=== PATIENT | male | born 1965 | race Caucasian/White ===

== ENCOUNTER 2017-01-02 16:29 | Inpatient (IN) | payer BC, MEDICARE ==
[~2017-01-02] VITALS: Ht 175.3 cm; Wt 90.5 kg
[~2017-01-02 16:29] MED LIST: HYDR-971 PO
--- NOTE | 2017-01-02 17:09 | PHYS DOC ---
Past History Past Medical History: Arthritis, Diabetes, Fibromyalgia, Hypertension Past Surgical History: Tonsillectomy Alcohol Use: Occasionally Drug Use: None Adult General Chief Complaint Chief Complaint: ALTERED MENTAL STATUS [facility] HPI Andrae is a 51-year-old male with a history of urinary tract infections and altered mental status. Yesterday he was very confused all day according to his family. Today he has sweats and chills Review of Systems Review of Systems Constitutional: Denies fever or chills [] Eyes: Denies change in visual acuity, redness, or eye pain [] HENT: Denies nasal congestion or sore throat [] Respiratory: Denies cough or shortness of breath [] Cardiovascular: No additional information not addressed in HPI [] GI: Denies abdominal pain, nausea, vomiting, bloody stools or diarrhea [] : Denies dysuria or hematuria [] Musculoskeletal: Denies back pain or joint pain [] Integument: Denies rash or skin lesions [] Neurologic: Denies headache, focal weakness or sensory changes [] Endocrine: Denies polyuria or polydipsia [] Allergies Allergies Allergies Coded Allergies Type Severity Reaction Last Updated Verified Iodine and Iodide Containing Produc Allergy Intermediate rash 08/24/16 Yes povidone-iodine Allergy Intermediate rash 08/24/16 Yes soap Allergy Intermediate rash 08/24/16 Yes Physical Exam Physical Exam Constitutional: Well developed, well nourished, no acute distress, non-toxic appearance. [] HENT: Normocephalic, atraumatic, bilateral external ears normal, oropharynx moist, no oral exudates, nose normal. [] Eyes: PERRLA, EOMI, conjunctiva normal, no discharge. [] Neck: Normal range of motion, no tenderness, supple, no stridor. [] Cardiovascular:Heart rate regular rhythm, no murmur [] Lungs & Thorax: Bilateral breath sounds clear to auscultation [] Abdomen: Bowel sounds normal, soft, no tenderness, no masses, no pulsatile masses. [] Skin: Warm, dry, no erythema, no rash. [] Back: No tenderness, no CVA tenderness. [] Extremities: No tenderness, no cyanosis, no clubbing, ROM intact, no edema. [] Neurologic: Alert and oriented X 3, normal motor function, normal sensory function, no focal deficits noted. [] Psychologic: Affect normal, judgement normal, mood normal. [] Current Patient Data Vital Signs Vital Signs Date Time Temp Pulse Resp B/P (MAP) Pulse Ox O2 Delivery O2 Flow Rate FiO2 01/02/17 17:40 83 20 96/51 (66) 98 Room Air 01/02/17 16:50 98.1 EKG EKG ECG - sinus tachycardia Radiology/Procedures Radiology/Procedures CT Head: negative per radiology Course & Med Decision Making Course & Med Decision Making Laboratory Tests Test 01/02/17 16:46 01/02/17 16:50 Glucose (Fingerstick) 512 mg/dL White Blood Count 5.6 x10^3/uL Red Blood Count 3.78 x10^6/uL Hemoglobin 12.1 g/dL Hematocrit 36.1 % Mean Corpuscular Volume 96 fL Mean Corpuscular Hemoglobin 32 pg Mean Corpuscular Hemoglobin Concent 34 g/dL Red Cell Distribution Width 15.6 % Platelet Count 100 x10^3/uL Neutrophils (%) (Auto) 69 % Lymphocytes (%) (Auto) 19 % Monocytes (%) (Auto) 10 % Eosinophils (%) (Auto) 2 % Basophils (%) (Auto) 0 % Neutrophils # (Auto) 3.9 x10^3uL Lymphocytes # (Auto) 1.1 x10^3/uL Monocytes # (Auto) 0.6 x10^3/uL Eosinophils # (Auto) 0.1 x10^3/uL Basophils # (Auto) 0.0 x10^3/uL Sodium Level 131 mmol/L Potassium Level 3.2 mmol/L Chloride Level 94 mmol/L Carbon Dioxide Level 28 mmol/L Anion Gap 9 Blood Urea Nitrogen 28 mg/dL Creatinine 2.4 mg/dL Estimated GFR (Cockcroft-Gault) 28.5 Glucose Level 475 mg/dL Calcium Level 9.7 mg/dL Current Medications Medications (Trade) Dose Ordered Sig/Carlos Eduardo Route PRN Reason Start Time Stop Time Status Last Admin Dose Admin Sodium Chloride 1,000 ml @ As Directed STK-MED ONCE .ROUTE 01/02/17 17:43 01/02/17 17:44 DC Sodium Chloride (Normal Saline Flush) 1,000 ml 1X STAT IV 01/02/17 17:47 01/02/17 17:57 DC 01/02/17 17:30 Sodium Chloride (Iv Sodium Chloride 0.9% 1,000ml) 1,000 ml 1X STAT IV 01/02/17 17:57 01/02/17 17:58 DC Khai Disclaimer Dragon Disclaimer This chart was dictated in whole or in part using Voice Recognition software in a busy, high-work load, and often noisy Emergency Department environment. It may contain unintended and wholly unrecognized errors or omissions. Departure Departure: Impression: Primary Impression: Altered mental state Additional Impressions: Acute kidney failure Hyperglycemia Hyperglycemia due to type 2 diabetes mellitus Disposition: ADMITTED INPATIENT Condition: STABLE Referrals: JOSEF ROJAS MD (PCP) Problem Qualifiers Primary Impression: Altered mental state Altered mental status type: unspecified Qualified Codes: R41.82 - Altered mental status, unspecified Additional Impressions: Acute kidney failure Acute renal failure type: unspecified Qualified Codes: N17.9 - Acute kidney failure, unspecified Hyperglycemia due to type 2 diabetes mellitus Diabetes mellitus nursing home insulin use: with nursing home use Qualified Codes: E11.65 - Type 2 diabetes mellitus with hyperglycemia; Z79.4 - care home ( current) use of insulin SCAR ODELL MD Jan 02, 2017 17:09
--- NOTE | 2017-01-02 17:14 | EKG ---
[address] [address] Test Date: 2017-01-02 Test Time: 16:48:54 Pat Name: VIKASH HUNTER Department: Room: Gender: M Discharge Coordinator: : 1965 Requested By: SCAR ODELL Order Number: [id number] Reading MD: Measurements Intervals [place] Rate: 89 P: 24 NC: 178 QRS: -8 QRSD: 86 T: 11 QT: 422 QTc: 515 Interpretive Statements SINUS RHYTHM LEFTWARD AXIS R-S TRANSITION ZONE IN V LEADS DISPLACED TO THE LEFT LOW LIMB LEAD VOLTAGE PROLONGED QT RI6.01 Unconfirmed report No previous ECG available for comparison
[2017-01-02 17:19] LABS: BASO % 0 % (0-3); EOS # 0.1 x10^3/uL (0.0-0.7); EOS % 2 % (0-3); HEMATOCRIT 36.1 % (39.0-53.0); HEMOGLOBIN 12.1 g/dL (13.0-17.5); LYMPH # 1.1 x10^3/uL (1.0-4.8); LYMPH % 19 % (24-48); MEAN CORPUSCULAR HEMOGLOBIN 32 pg (25-35); MEAN CORPUSCULAR HGB CONC 34 g/dL (31-37); MEAN CORPUSCULAR VOLUME 96 fL (79-100); MONO # 0.6 x10^3/uL (0.0-1.1); MONO % 10 % (0-9); NEUT # 3.9 x10^3uL (1.8-7.7); NEUT % 69 % (31-73); PLATELET COUNT 100 x10^3/uL (140-400); RED BLOOD COUNT 3.78 x10^6/uL (4.30-5.70); RED CELL DISTRIBUTION WIDTH 15.6 % (11.5-14.5); WHITE BLOOD COUNT 5.6 x10^3/uL (4.0-11.0)
[2017-01-02 17:21] LABS: CALCIUM 9.7 mg/dL (8.5-10.1); CREATININE 2.4 mg/dL (0.7-1.3); GFR 28.5; POTASSIUM 3.2 mmol/L (3.5-5.1)
--- NOTE | 2017-01-02 17:39 | RAD ---
CT Head W/O Contrast: History: Pt has fallen several times within the last few days dementia.unkempt,pt has dollar sized round bruise at top back of head Prior imaging of head from08/2016 sent for comparison. Could not separate head images from [facility] to send [id number] Comparison: August 24, 2016 Axial images were obtained without contrast. The briscoe and white matter appears normal and symmetrical for the patients age. There is no mass effect, extraaxial fluid collections or hydrocephalus. There is no gross bleed. There is no focal loss of briscoe-white matter distinction to suggest acute ischemia, i.e. stroke. Impression: No acute findings. PQRS Compliance Statement: One or more of the following individualized dose reduction techniques were utilized for this examination: 1. Automated exposure control 2. Adjustment of the mA and/or kV according to patient size 3. Use of iterative reconstruction technique Electronically signed by: Jeffrey Cardenas III, MD (01/02/2017 5:36 PM) [facility]
[2017-01-02] MEDS ORDERED: IV NORMAL SALINE 1,000ML 1,000 ML ONE (17:43)
[2017-01-02] MEDS ORDERED: 0.9 % SODIUM CHLORIDE 10 ML DISP.SYRIN. IV STA (17:47)
[2017-01-02] MEDS ORDERED: IV NORMAL SALINE 1,000 ML BAG IV STA (17:57)
[2017-01-02 18:10] LABS: BARBITURATES NEG (NEG); BENZODIAZEPINES NEG (NEG); CANNABINOIDS NEG (NEG); COCAINE NEG (NEG); METHADONE NEG (NEG); OPIATES NEG (NEG); PHENCYCLIDINE NEG (NEG)
[2017-01-02 18:11] LABS: AMPHETAMINE/METHAMPHETAMINE NEG (NEG)
[2017-01-02] MEDS ORDERED: ACETAMINOPHEN 325 MG TABLET PO PRN (18:15)
[2017-01-02 18:30] LABS: BILIRUBIN,URINE NEG (NEG); CLARITY,URINE CLOUDY; COLOR,URINE YELLOW; GLUCOSE,URINE >=1000 mg/dL (NEG); NITRITE,URINE NEG (NEG); UROBILINOGEN,URINE 1 mg/dL (0.2 mg/dL)
[2017-01-02] MEDS ORDERED: INSULIN ASPART 300 UNITS/3 ML INSULN.PEN SQ ONE (18:30)
[2017-01-02 18:31] LABS: BACTERIA,URINE FEW /HPF (0-FEW); HYALINE CASTS, URINE MANY /HPF; SQUAMOUS EPITHELIAL CELL,UR MANY /LPF
[2017-01-02] MEDS ORDERED: POTASSIUM CHLORIDE 20 MEQ TABLET.ER. PO ONE (18:45)
[2017-01-02 20:23] VITALS: BP 117/70
[2017-01-02 20:25] VITALS: BP 117/70
[2017-01-02] MEDS ORDERED: BACL10TA PO (21:57)
[2017-01-02] MEDS ORDERED: INSU100I17 SQ (21:57)
[2017-01-02] MEDS ORDERED: GRIS500T5 PO (21:57)
[2017-01-02] MEDS ORDERED: METF10002 PO (21:57)
[2017-01-02] MEDS ORDERED: OXYC5TAB PO (21:57)
[2017-01-02] MEDS ORDERED: TRAZ300T2 PO (21:57)
[2017-01-02] MEDS: BACLOFEN 10 MG TABLET PO SCH (22:24)
[2017-01-02] MEDS: oxyCODONE IR 5 MG TABLET PO PRN (22:25)
[2017-01-02] MEDS: traZODone 150 MG TABLET. PO SCH (22:25)
[2017-01-02] MEDS: IV NORMAL SALINE 1,000ML 1,000 ML IV SCH (22:26)
[2017-01-02 23:20] VITALS: BP 117/65
[2017-01-03] MEDS ORDERED: GABA300C8 PO (01:18)
[2017-01-03] MEDS ORDERED: LISI40TA PO (01:20)
[2017-01-03] MEDS ORDERED: AMIT150T PO (01:20)
[2017-01-03] MEDS ORDERED: ESCITALOPRAM OX20 MG PO (01:20)
[2017-01-03] MEDS ORDERED: CARV6.252 PO (01:20)
[2017-01-03] MEDS ORDERED: DEXTROSE 50% 25 GM / 50ML DISP.SYRIN. IV PRN (01:30)
--- NOTE | 2017-01-03 02:40 | ACF ---
Admission Criteria Forms MENTAL STATUS CHANGE Clinical Indications for Inpatient Care (Place 'X' for any and all applicable criteria): Ongoing inpatient care may be needed for 1 or more of the following(1)(2)(3)(5)( 6): [X]I. Suspected serious etiology (eg, medical disorder, BENCH ASSEMBLY INSPECTOR event) of altered mental status [ ]II. Danger to self or others not manageable at lower level of care [ ]III. Grave disability (eg, inability to perform self care necessary at lower level of care) [ ]IV. Agitation or inappropriate behavior interfering with care for primary condition (eg, attempting to discontinue lines or drains prematurely, unable to cooperate with respiratory care) [ ]V. Delirium [A] [D][E] as described by 1 or more of the following(26): [ ]a) Delirium due to alcohol or sedative [F] withdrawal [ ]b) Delirium of uncertain etiology that has not responded to appropriate empiric treatment [ ]c) Delirium that prevents performance of a life-sustaining function (eg, feeding or hydrating oneself) [ ]. General contraindications and/or Inappropriate clinical situations for Observational Care in patients with Mental Status Change, when ANY ONE of the following is required: [ ]a) Prediction of prolongation of LOS based on ANY ONE of the following may be considered as a contraindication for observational care 2, 3, 4, 5, 6, 7, 8, 9, 10, 11 [ ]i) Age > 65 yrs. [ ]ii) Patient arriving by ambulance [ ]iii) Patient with high acuity [ ]iv) Patient requiring vital sign monitoring [ ]v) Patient on IV medication [ ]b) Systolic blood pressures greater than or equal to 180mmHg 3, 12 [ ]c) Patient with altered mental status including delirium and other alteration of consciousness, (3) [ ]d) Patient whose discharge disposition will be to a penitentiary home or rehabilitation home should not be managed in Emergency Department Observation Unit. CMS rule requires 3 days hospital stay before such placement.3,13 [ ]e) Patient with failure to thrive due to broad array of etiologies 3,16,17 [ ]f) Inability to ambulate 3,14 Extended stay beyond goal length of stay for the primary condition may be needed until ALL of the following are present(3)(5): [ ]a) Underlying medical etiology of mental status change is absent, or has been established and adequately treated [ ]b) Danger to self or others is absent or manageable at lower level of care. [ ]c) Behavior crisis management, including physical or chemical restraints, is not required or available at lower level of car [ ]d) Substance or alcohol withdrawal is absent or manageable at lower level of care. [ ]e) Behavioral symptoms (eg, agitation, somnolence, inappropriate behavior) are absent, or are manageable at lower level of care. The original [facility] [employer] content created by [facility] has been revised. The portions of the content which have been revised are identified through the use of italic text or in bold, and [facility] has neither reviewed nor approved the modified material. All other unmodified content is copyright [facility]. Please see references footnoted in the original [facility] edition 2016 Admission Criteria Met?: Yes GABRIEL SIDDIQI Jan 03, 2017 02:40
[2017-01-03] MEDS: IV NORMAL SALINE 1,000ML 1,000 ML IV SCH ×2 (04:41→17:22)
[2017-01-03 05:22] VITALS: BP 148/55
[2017-01-03 07:00] LABS: BASO % 0 % (0-3); EOS # 0.1 x10^3/uL (0.0-0.7); EOS % 3 % (0-3); HEMATOCRIT 37.8 % (39.0-53.0); HEMOGLOBIN 12.5 g/dL (13.0-17.5); LYMPH % 27 % (24-48); MEAN CORPUSCULAR HEMOGLOBIN 32 pg (25-35); MEAN CORPUSCULAR HGB CONC 33 g/dL (31-37); MEAN CORPUSCULAR VOLUME 97 fL (79-100); MONO # 0.3 x10^3/uL (0.0-1.1); MONO % 9 % (0-9); NEUT # 2.2 x10^3uL (1.8-7.7); NEUT % 62 % (31-73); PLATELET COUNT 61 x10^3/uL (140-400); RED BLOOD COUNT 3.92 x10^6/uL (4.30-5.70); RED CELL DISTRIBUTION WIDTH 15.5 % (11.5-14.5); WHITE BLOOD COUNT 3.6 x10^3/uL (4.0-11.0)
[2017-01-03 07:06] LABS: CREATININE 1.3 mg/dL (0.7-1.3); GFR 57.7; POTASSIUM 3.9 mmol/L (3.5-5.1)
[2017-01-03] MEDS: oxyCODONE IR 5 MG TABLET PO PRN ×2 (08:14→23:07)
[2017-01-03] MEDS: GABAPENTIN 300 MG CAPSULE. PO SCH ×3 (08:14→21:00)
[2017-01-03] MEDS: CARVEDILOL 6.25 MG TABLET PO SCH ×2 (08:15→17:22)
[2017-01-03] MEDS: metFORMIN 500 MG TABLET PO SCH ×2 (08:15→17:22)
[2017-01-03] MEDS: ESCITALOPRAM 20 MG TABLET. PO SCH (08:15)
[2017-01-03] MEDS: LISINOPRIL 20 MG TABLET PO SCH (08:15)
[2017-01-03] MEDS: INSULIN ASPART 300 UNITS/3 ML INSULN.PEN SQ SCH ×4 (08:19→21:00)
[2017-01-03] MEDS: GRISEOFULVIN MICROSIZE 500 MG PO SCH ×2 (08:20→20:59)
[2017-01-03 11:03] VITALS: BP 106/61
[2017-01-03 14:45] VITALS: BP 101/57
--- NOTE | 2017-01-03 16:30 | PDOC1 ---
History of Present Illness Reason for Visit: Altered mental status, confusion sweatsb and chills History of Present Illness The patient was noted to be more confused all day according to the family He was lost driving to [place] and around [place] His house is very dirty and he has severe self care deficit Chief Complaint: ALTERED MENTAL STATUS Allergies: Coded Allergies: Iodine and Iodide Containing Produc (Verified Allergy, Intermediate, rash , 08/24/16) povidone-iodine (Verified Allergy, Intermediate, rash, 08/24/16) soap (Verified Allergy, Intermediate, rash, 08/24/16) Past Medical History Cardiac: HTN PRODUCTION PLANNER SCHEDULER: Dementia GI: No pertinent hx Musculoskeletal: No pertinent hx Rheumatologic: Fibromyalgia Renal/: Chronic renal insuff, Acute renal failure, UTI, Other (kidney stones) Endocrine: Diabetes Dermatology: Eczema Past Surgical History: No pertinent history Past Social History Smoke: No Alcohol: none Drugs: None Lives: Alone Review of Systems Review Of Systems Fourteen system , review of systems has been reviewed. See HPI for pertinent positives and negative responses, other kilpatrick all other systems are negative, non pertinent or non contributory Neurological: YES: Behavorial Changes Allergies: Coded Allergies: Iodine and Iodide Containing Produc (Verified Allergy, Intermediate, rash , 08/24/16) povidone-iodine (Verified Allergy, Intermediate, rash, 08/24/16) soap (Verified Allergy, Intermediate, rash, 08/24/16) Medications Current Medications Sodium Chloride 1,000 ml @ As Directed STK-MED ONCE .ROUTE ; Start 01/02/17 at 17:43; Stop 01/02/17 at 17:44; Status DC Sodium Chloride (Normal Saline Flush) 1,000 ml 1X STAT IV Last administered on 01/02/17 17:30; Start 01/02/17 at 17:47; Stop 01/02/17 at 17:57; Status DC Sodium Chloride (Iv Sodium Chloride 0.9% 1,000ml) 1,000 ml 1X STAT IV Last administered on 01/02/17 17:57; Start 01/02/17 at 17:57; Stop 01/02/17 at 17:58 ; Status DC Sodium Chloride 1,000 ml @ 100 mls/hr Q10H IV Last administered on 01/03/17 04:41; Start 01/02/17 at 18:15; Stop 01/03/17 at 18:14 Acetaminophen (Tylenol) 650 mg PRN Q4HRS PRN PO FEVER; Start 01/02/17 at 18:15 ; Stop 01/03/17 at 18:14 Insulin Aspart (NovoLOG) 10 units 1X ONCE SQ Last administered on 01/02/17 18 :32; Start 01/02/17 at 18:30; Stop 01/02/17 at 18:31; Status DC Potassium Chloride (Klor-Con) 20 meq 1X ONCE PO Last administered on 18:31; Start 01/02/17 at 18:45; Stop 01/02/17 at 18:46; Status DC Baclofen (Lioresal) 30 mg HS PO Last administered on 01/02/17 22:24; Start at 22:15 Oxycodone HCl (Roxicodone) 15 mg PRN BID PRN PO BACK PAIN Last administered on 01/03/17 08:14; Start 01/02/17 at 22:00 Trazodone HCl (Desyrel) 300 mg HS PO Last administered on 01/02/17 22:25; Start 01/02/17 at 22:15 Carvedilol (Coreg) 6.25 mg BIDWMEALS PO Last administered on 01/03/17 08:15; Start 01/03/17 at 08:00 Gabapentin (Neurontin) 300 mg TID PO Last administered on 01/03/17 12:10; Start 01/03/17 at 09:00 Amitriptyline HCl (Elavil) 150 mg HS PO ; Start 01/03/17 at 21:00 Escitalopram Oxalate (Lexapro) 20 mg DAILY PO Last administered on 01/03/17 08 :15; Start 01/03/17 at 09:00 Non-Formulary Medication 500 mg BID PO ; Start 01/03/17 at 09:00; Status UNV Lisinopril (Prinivil) 40 mg DAILY PO Last administered on 01/03/17 08:15; Start 01/03/17 at 09:00 Metformin HCl (Glucophage) 1,000 mg BIDWMEALS PO Last administered on 08:15; Start 01/03/17 at 08:00 Insulin Aspart (NovoLOG) 0-7 UNITS QIDACHS SQ Last administered on 01/03/17t 12 :11; Start 01/03/17 at 07:30 Dextrose 12.5 gm PRN Q15MIN PRN IV SEE COMMENTS; Start 01/03/17 at 01:30 Active Scripts Active Reported Amitriptyline Hcl 150 Mg Tablet 150 Mg PO HS Carvedilol 6.25 Mg Tablet 6.25 Mg PO BIDWMEALS Lisinopril 40 Mg Tablet 40 Mg PO DAILY Escitalopram Oxalate 20 Mg Tablet 20 Mg PO DAILY Gabapentin 300 Mg Capsule 300 Mg PO TID Griseofulvin (Griseofulvin,Microsize) 500 Mg Tablet 500 Mg PO BID Trazodone Hcl 300 Mg Tablet 300 Mg PO HS Oxycodone Hcl 5 Mg Tablet 15 Mg PO PRN BID PRN Baclofen 10 Mg Tablet 30 Mg PO HS Novolog Flexpen (Insulin Aspart) 100 Unit/1 Ml Insuln.pen 0-7 Unit SQ TIDACHC PRN Metformin Hcl 1,000 Mg Tablet 1,000 Mg PO BIDWMEALS Exam Vital Signs Vital Signs Date Time Temp Pulse Resp B/P (MAP) Pulse Ox O2 Delivery O2 Flow Rate FiO2 01/03/17 14:45 97.5 67 20 101/57 (72) 94 Room Air 01/03/17 11:03 2.0 General Appearance: Alert, No acute distress HEENT: Atraumatic, PERRLA, EOMI Heart: Regular rate, Normal S1, Normal S2, No murmurs, Gallops, Rubs Cardiac: HTN Abdominal: Normal bowel sounds, No tenderness, No masses Extremities: No clubbing, No cyanosis, No edema, Normal pulses Skin: No rashes, No breakdown Neuro: Normal gait, Normal speech, Normal tone Psych/Mental Status: Mental status NL Assessment/Plan Assessment/Plan Altered mental status and impaired cognition A/c kidney injury Type IIDM Self care deficit COURSE Allergies Coded Allergies Type Severity Reaction Last Updated Verified Iodine and Iodide Containing Produc Allergy Intermediate rash 08/24/16 Yes povidone-iodine Allergy Intermediate rash 08/24/16 Yes soap Allergy Intermediate rash 08/24/16 Yes Laboratory Tests Test 01/02/17 16:46 01/02/17 16:50 01/02/17 17:49 01/02/17 20:47 Glucose (Fingerstick) 512 mg/dL (70-99) 275 mg/dL (70-99) White Blood Count 5.6 x10^3/uL (4.0-11.0) Red Blood Count 3.78 x10^6/uL (4.30-5.70) Hemoglobin 12.1 g/dL (13.0-17.5) Hematocrit 36.1 % (39.0-53.0) Mean Corpuscular Volume 96 fL (79-100) Mean Corpuscular Hemoglobin 32 pg (25-35) Mean Corpuscular Hemoglobin Concent 34 g/dL (31-37) Red Cell Distribution Width 15.6 % (11.5-14.5) Platelet Count 100 x10^3/uL (140-400) Neutrophils (%) (Auto) 69 % (31-73) Lymphocytes (%) (Auto) 19 % (24-48) Monocytes (%) (Auto) 10 % (0-9) Eosinophils (%) (Auto) 2 % (0-3) Basophils (%) (Auto) 0 % (0-3) Neutrophils # (Auto) 3.9 x10^3uL (1.8-7.7) Lymphocytes # (Auto) 1.1 x10^3/uL (1.0-4.8) Monocytes # (Auto) 0.6 x10^3/uL (0.0-1.1) Eosinophils # (Auto) 0.1 x10^3/uL (0.0-0.7) Basophils # (Auto) 0.0 x10^3/uL (0.0-0.2) Sodium Level 131 mmol/L (136-145) Potassium Level 3.2 mmol/L (3.5-5.1) Chloride Level 94 mmol/L (98-107) Carbon Dioxide Level 28 mmol/L (21-32) Anion Gap 9 (6-14) Blood Urea Nitrogen 28 mg/dL (8-26) Creatinine 2.4 mg/dL (0.7-1.3) Estimated GFR (Cockcroft-Gault) 28.5 Glucose Level 475 mg/dL (70-99) Calcium Level 9.7 mg/dL (8.5-10.1) Urine Collection Type Unknown Urine Color Yellow Urine Clarity Cloudy Urine pH 5.0 Urine Specific Baker 1.020 Urine Protein Neg (NEG-TRACE) Urine Glucose (UA) >=1000 mg/dL (NEG) Urine Ketones (Stick) Neg mg/dL (NEG) Urine Blood Neg (NEG) Urine Nitrite Neg (NEG) Urine Bilirubin Neg (NEG) Urine Urobilinogen Dipstick 1 mg/dL (0.2 mg/dL) Urine Leukocyte Esterase Neg (NEG) Urine RBC 3-5 /HPF (0-2) Urine WBC 5-10 /HPF (0-4) Urine Squamous Epithelial Cells Many /LPF Urine Bacteria Few /HPF (0-FEW) Urine Hyaline Casts Many /HPF Urine Mucus Marked /LPF Urine Opiates Screen Neg (NEG) Urine Methadone Screen Neg (NEG) Urine Barbiturates Neg (NEG) Urine Phencyclidine Screen Neg (NEG) Urine Amphetamine/Methamphetamine Neg (NEG) Urine Benzodiazepines Screen Neg (NEG) Urine Cocaine Screen Neg (NEG) Urine Cannabinoids Screen Neg (NEG) Urine Ethyl Alcohol Neg (NEG) Test 01/03/17 06:40 01/03/17 07:18 01/03/17 11:11 White Blood Count 3.6 x10^3/uL (4.0-11.0) Red Blood Count 3.92 x10^6/uL (4.30-5.70) Hemoglobin 12.5 g/dL (13.0-17.5) Hematocrit 37.8 % (39.0-53.0) Mean Corpuscular Volume 97 fL (79-100) Mean Corpuscular Hemoglobin 32 pg (25-35) Mean Corpuscular Hemoglobin Concent 33 g/dL (31-37) Red Cell Distribution Width 15.5 % (11.5-14.5) Platelet Count 61 x10^3/uL (140-400) Neutrophils (%) (Auto) 62 % (31-73) Lymphocytes (%) (Auto) 27 % (24-48) Monocytes (%) (Auto) 9 % (0-9) Eosinophils (%) (Auto) 3 % (0-3) Basophils (%) (Auto) 0 % (0-3) Neutrophils # (Auto) 2.2 x10^3uL (1.8-7.7) Lymphocytes # (Auto) 1.0 x10^3/uL (1.0-4.8) Monocytes # (Auto) 0.3 x10^3/uL (0.0-1.1) Eosinophils # (Auto) 0.1 x10^3/uL (0.0-0.7) Basophils # (Auto) 0.0 x10^3/uL (0.0-0.2) Sodium Level 138 mmol/L (136-145) Potassium Level 3.9 mmol/L (3.5-5.1) Chloride Level 100 mmol/L (98-107) Carbon Dioxide Level 31 mmol/L (21-32) Anion Gap 7 (6-14) Blood Urea Nitrogen 23 mg/dL (8-26) Creatinine 1.3 mg/dL (0.7-1.3) Estimated GFR (Cockcroft-Gault) 57.7 Glucose Level 285 mg/dL (70-99) Calcium Level 9.0 mg/dL (8.5-10.1) Glucose (Fingerstick) 239 mg/dL (70-99) 272 mg/dL (70-99) Current Medications Medications (Trade) Dose Ordered Sig/Carlos Eduardo Route PRN Reason Start Time Stop Time Status Last Admin Dose Admin Sodium Chloride 1,000 ml @ As Directed STK-MED ONCE .ROUTE 01/02/17 17:43 01/02/17 17:44 DC Sodium Chloride (Normal Saline Flush) 1,000 ml 1X STAT IV 01/02/17 17:47 01/02/17 17:57 DC 01/02/17 17:30 Sodium Chloride (Iv Sodium Chloride 0.9% 1,000ml) 1,000 ml 1X STAT IV 01/02/17 17:57 01/02/17 17:58 DC 01/02/17 17:57 Sodium Chloride 1,000 ml @ 100 mls/hr Q10H IV 01/02/17 18:15 01/03/17 18:14 01/03/17 04:41 Acetaminophen (Tylenol) 650 mg PRN Q4HRS PRN PO FEVER 01/02/17 18:15 01/03/17 18:14 Insulin Aspart (NovoLOG) 10 units 1X ONCE SQ 01/02/17 18:30 01/02/17 18:31 DC 01/02/17 18:32 Potassium Chloride (Klor-Con) 20 meq 1X ONCE PO 01/02/17 18:45 01/02/17 18:46 DC 01/02/17 18:31 Baclofen (Lioresal) 30 mg HS PO 01/02/17 22:15 01/02/17 22:24 Oxycodone HCl (Roxicodone) 15 mg PRN BID PRN PO BACK PAIN 01/02/17 22:00 01/03/17 08:14 Trazodone HCl (Desyrel) 300 mg HS PO 01/02/17 22:15 01/02/17 22:25 Carvedilol (Coreg) 6.25 mg BIDWMEALS PO 01/03/17 08:00 01/03/17 08:15 Gabapentin (Neurontin) 300 mg TID PO 01/03/17 09:00 01/03/17 12:10 Amitriptyline HCl (Elavil) 150 mg HS PO 01/03/17 21:00 Escitalopram Oxalate (Lexapro) 20 mg DAILY PO 01/03/17 09:00 01/03/17 08:15 Non-Formulary Medication 500 mg BID PO 01/03/17 09:00 UNV Lisinopril (Prinivil) 40 mg DAILY PO 01/03/17 09:00 01/03/17 08:15 Metformin HCl (Glucophage) 1,000 mg BIDWMEALS PO 01/03/17 08:00 01/03/17 08:15 Insulin Aspart (NovoLOG) 0-7 UNITS QIDACHS SQ 01/03/17 07:30 01/03/17 12:11 Dextrose 12.5 gm PRN Q15MIN PRN IV SEE COMMENTS 01/03/17 01:30 I & O 01/03/17 00:00 Intake Total 2900 ml Balance 2900 ml Orders Procedure Category Date Status Time Ct Head Wo Contrast CT 01/02/17 Resulted 17:06 Vital Signs ER 01/02/17 Transmitted 17:07 Bp Monitoring ER 01/02/17 Transmitted 17:07 Temperature Monitoring ER 01/02/17 Transmitted 17:07 Saline Lock ER 01/02/17 Transmitted 17:07 Basic Metabolic Panel LAB 01/02/17 Complete 17:07 Cbc W Autodiff LAB 01/02/17 Complete 17:07 Ua, Cult If Indicated LAB 01/02/17 Complete 17:07 Drugs Of Abuse Ur LAB 01/02/17 Complete 17:07 12 Lead Ekg EKG 01/02/17 Complete 17:07 Mine Technician ER 01/02/17 Verified 17:07 Continuous Pulse ER 01/02/17 Verified Oximetry 17:07 Iv Normal Saline PHA 01/02/17 Complete 1,000ml (Iv Sodium 17:43 0.9 % Sodium Chloride PHA 01/02/17 Complete (Normal Saline Flu 17:47 Iv Normal Saline PHA 01/02/17 Complete 1,000ml (Iv Sodium 17:57 [place] Order ADT 01/02/17 Transmitted 18:15 Code Status CODE 01/02/17 Transmitted 18:15 Vital Signs, Per KIKI 01/02/17 In Process Protocol 18:15 Ambulate Ad Angle KIKI 01/02/17 In Process 18:15 Fall Precautions KIKI 01/02/17 In Process 18:15 Cbc W Autodiff LAB 01/03/17 Complete 06:00 Basic Metabolic Panel LAB 01/03/17 Complete 06:00 Iv Normal Saline PHA 01/02/17 In Process 1,000ml (Iv Sodium 18:15 Acetaminophen PHA 01/02/17 In Process (Tylenol) 18:15 Insulin Aspart PHA 01/02/17 Complete (Novolog) 18:30 Potassium Chloride PHA 01/02/17 Complete (Klor-Con) 18:45 Urine Culture FEDE 01/02/17 In Process 18:32 Admit Orders ADT 01/02/17 Transmitted Oxycodone Ir PHA 01/02/17 In Process (Roxicodone) 22:00 Baclofen (Lioresal) PHA 01/02/17 In Process 22:15 Trazodone (Desyrel) PHA 01/02/17 In Process 22:15 Carvedilol (Coreg) PHA 01/03/17 In Process 08:00 Gabapentin (Neurontin) PHA 01/03/17 In Process 09:00 Amitriptyline Hcl PHA 01/03/17 In Process (Elavil) 21:00 Escitalopram (Lexapro) PHA 01/03/17 In Process 09:00 (NF) PHA 01/03/17 Logged Griseofulvin,Microsize 09:00 Lisinopril (Prinivil) PHA 01/03/17 In Process 09:00 Metformin (Glucophage) PHA 01/03/17 In Process 08:00 Glucose Poct Achs KIKI 01/03/17 In Process 01:28 Insulin Aspart PHA 01/03/17 In Process (Novolog) 07:30 Dextrose 50% PHA 01/03/17 In Process 01:30 Case Management CM1 01/04/17 Transmitted Referral 07:00 High Risk Dc CONS 01/03/17 Transmitted Readmission 01:53 Angolan Diabetic DIET 01/03/17 Transmitted Assoc Diet Breakfast Pt Eval And Treat PT 01/03/17 Complete 06:21 Ot Eval And Treat OT 01/03/17 Complete 06:21 Vital Signs Date Time Temp Pulse Resp B/P (MAP) Pulse Ox O2 Delivery O2 Flow Rate FiO2 01/03/17 14:45 97.5 67 20 101/57 (72) 94 Room Air 01/03/17 11:03 2.0 DEONNA ARCE MD Jan 03, 2017 16:30
--- NOTE | 2017-01-03 16:50 | PDOC ---
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 given his family history of cancer A/C KI History of multiple renal stones Psoriasis Type II DM Fibromyalgia Vital Signs: Vital Signs Date Time Temp Pulse Resp B/P (MAP) Pulse Ox O2 Delivery O2 Flow Rate FiO2 01/03/17 14:45 97.5 67 20 101/57 (72) 94 Room Air 01/03/17 11:03 2.0 I & O Intake and Output 01/03/17 07:00 Intake Total 3749 ml Balance 3749 ml Intake Oral 1050 ml IV Total 2699 ml # Voids 1 # Bowel Movements 1 Labs: Laboratory Tests Test 01/02/17 16:46 01/02/17 16:50 01/02/17 17:49 01/02/17 20:47 Glucose (Fingerstick) 512 mg/dL (70-99) 275 mg/dL (70-99) White Blood Count 5.6 x10^3/uL (4.0-11.0) Red Blood Count 3.78 x10^6/uL (4.30-5.70) Hemoglobin 12.1 g/dL (13.0-17.5) Hematocrit 36.1 % (39.0-53.0) Mean Corpuscular Volume 96 fL (79-100) Mean Corpuscular Hemoglobin 32 pg (25-35) Mean Corpuscular Hemoglobin Concent 34 g/dL (31-37) Red Cell Distribution Width 15.6 % (11.5-14.5) Platelet Count 100 x10^3/uL (140-400) Neutrophils (%) (Auto) 69 % (31-73) Lymphocytes (%) (Auto) 19 % (24-48) Monocytes (%) (Auto) 10 % (0-9) Eosinophils (%) (Auto) 2 % (0-3) Basophils (%) (Auto) 0 % (0-3) Neutrophils # (Auto) 3.9 x10^3uL (1.8-7.7) Lymphocytes # (Auto) 1.1 x10^3/uL (1.0-4.8) Monocytes # (Auto) 0.6 x10^3/uL (0.0-1.1) Eosinophils # (Auto) 0.1 x10^3/uL (0.0-0.7) Basophils # (Auto) 0.0 x10^3/uL (0.0-0.2) Sodium Level 131 mmol/L (136-145) Potassium Level 3.2 mmol/L (3.5-5.1) Chloride Level 94 mmol/L (98-107) Carbon Dioxide Level 28 mmol/L (21-32) Anion Gap 9 (6-14) Blood Urea Nitrogen 28 mg/dL (8-26) Creatinine 2.4 mg/dL (0.7-1.3) Estimated GFR (Cockcroft-Gault) 28.5 Glucose Level 475 mg/dL (70-99) Calcium Level 9.7 mg/dL (8.5-10.1) Urine Collection Type Unknown Urine Color Yellow Urine Clarity Cloudy Urine pH 5.0 Urine Specific [place] 1.020 Urine Protein Neg (NEG-TRACE) Urine Glucose (UA) >=1000 mg/dL (NEG) Urine Ketones (Stick) Neg mg/dL (NEG) Urine Blood Neg (NEG) Urine Nitrite Neg (NEG) Urine Bilirubin Neg (NEG) Urine Urobilinogen Dipstick 1 mg/dL (0.2 mg/dL) Urine Leukocyte Esterase Neg (NEG) Urine RBC 3-5 /HPF (0-2) Urine WBC 5-10 /HPF (0-4) Urine Squamous Epithelial Cells Many /LPF Urine Bacteria Few /HPF (0-FEW) Urine Hyaline Casts Many /HPF Urine Mucus Marked /LPF Urine Opiates Screen Neg (NEG) Urine Methadone Screen Neg (NEG) Urine Barbiturates Neg (NEG) Urine Phencyclidine Screen Neg (NEG) Urine Amphetamine/Methamphetamine Neg (NEG) Urine Benzodiazepines Screen Neg (NEG) Urine Cocaine Screen Neg (NEG) Urine Cannabinoids Screen Neg (NEG) Urine Ethyl Alcohol Neg (NEG) Test 01/03/17 06:40 01/03/17 07:18 01/03/17 11:11 White Blood Count 3.6 x10^3/uL (4.0-11.0) Red Blood Count 3.92 x10^6/uL (4.30-5.70) Hemoglobin 12.5 g/dL (13.0-17.5) Hematocrit 37.8 % (39.0-53.0) Mean Corpuscular Volume 97 fL (79-100) Mean Corpuscular Hemoglobin 32 pg (25-35) Mean Corpuscular Hemoglobin Concent 33 g/dL (31-37) Red Cell Distribution Width 15.5 % (11.5-14.5) Platelet Count 61 x10^3/uL (140-400) Neutrophils (%) (Auto) 62 % (31-73) Lymphocytes (%) (Auto) 27 % (24-48) Monocytes (%) (Auto) 9 % (0-9) Eosinophils (%) (Auto) 3 % (0-3) Basophils (%) (Auto) 0 % (0-3) Neutrophils # (Auto) 2.2 x10^3uL (1.8-7.7) Lymphocytes # (Auto) 1.0 x10^3/uL (1.0-4.8) Monocytes # (Auto) 0.3 x10^3/uL (0.0-1.1) Eosinophils # (Auto) 0.1 x10^3/uL (0.0-0.7) Basophils # (Auto) 0.0 x10^3/uL (0.0-0.2) Sodium Level 138 mmol/L (136-145) Potassium Level 3.9 mmol/L (3.5-5.1) Chloride Level 100 mmol/L (98-107) Carbon Dioxide Level 31 mmol/L (21-32) Anion Gap 7 (6-14) Blood Urea Nitrogen 23 mg/dL (8-26) Creatinine 1.3 mg/dL (0.7-1.3) Estimated GFR (Cockcroft-Gault) 57.7 Glucose Level 285 mg/dL (70-99) Calcium Level 9.0 mg/dL (8.5-10.1) Glucose (Fingerstick) 239 mg/dL (70-99) 272 mg/dL (70-99) Physical Exam: Resting comfortably in his chair in NAD Pale but not jaundiced or cyanosed Vitals are stable ASSESSMENT: Altered mental status with marked cognitive impairment likely due to dementia Poor living conditions and severe self care deficit A/C KI Poorly controlled Type II DM PLAN: Continue with I V Fluids Monitor labs and blood sugar CT Scan of abdomen and pelvis without contrast DEONNA ARCE MD Jan 03, 2017 16:50
[2017-01-03 18:00] VITALS: BP 114/67
--- NOTE | 2017-01-03 18:32 | RAD ---
Abdominal and Pelvis CT, Without Contrast: History: Hematuria and bilateral flank pain. Comparison: None. Procedure: Axial images are obtained of the abdomen and pelvis, without IV or oral contrast. CT Abdomen without Contrast: Findings: Evaluation of solid organs is limited without contrast. Evaluation of stomach and bowel is limited without oral contrast. Liver: Normal. Spleen: Moderately enlarged. Pancreas: Normal. Adrenal Glands: Normal. Kidneys: There is a tiny nonobstructive 3 mm stone in the left renal pelvis. There is no free air or free fluid. There is no lymphadenopathy. Impression: Please see CT Pelvis without Contrast. End Impression. CT Pelvis without Contrast: Findings: The urinary bladder is partially collapsed and not well evaluated. There is apparent moderate wall thickening. There is no free fluid. There is no lymphadenopathy. There is no pericolonic inflammation identified. The appendix is normal. Impression: 1. Moderate splenomegaly. 2. Nonobstructive stone in the left renal pelvis. No evidence of obstructive uropathy. 3. Apparent moderate wall thickening of the urinary bladder could be secondary to nondistention however correlation with urinary analysis is suggested. End impression PQRS Compliance Statement: One or more of the following individualized dose reduction techniques were utilized for this examination: 1. Automated exposure control 2. Adjustment of the mA and/or kV according to patient size 3. Use of iterative reconstruction technique Electronically signed by: Jeffrey Cardenas III, MD (01/03/2017 6:29 PM) [facility]
[2017-01-03] MEDS: traZODone 150 MG TABLET. PO SCH (21:00)
[2017-01-03] MEDS: AMITRIPTYLINE HCL 50 MG TABLET PO SCH (21:00)
[2017-01-03] MEDS: BACLOFEN 10 MG TABLET PO SCH (21:00)
[2017-01-03 23:35] VITALS: BP 144/77
[2017-01-04 05:55] VITALS: BP 129/74
[2017-01-04 06:41] LABS: C REACTIVE PROTEIN 31.9 mg/L (0-3.3); CALCIUM 8.8 mg/dL (8.5-10.1); CREATININE 0.9 mg/dL (0.7-1.3); GFR 88.3; POTASSIUM 3.6 mmol/L (3.5-5.1)
[2017-01-04] MEDS: oxyCODONE IR 5 MG TABLET PO PRN ×2 (08:32→21:11)
[2017-01-04] MEDS: GABAPENTIN 300 MG CAPSULE. PO SCH ×3 (08:32→21:11)
[2017-01-04] MEDS: ESCITALOPRAM 20 MG TABLET. PO SCH (08:32)
[2017-01-04] MEDS: metFORMIN 500 MG TABLET PO SCH ×2 (08:32→16:57)
[2017-01-04] MEDS: LISINOPRIL 20 MG TABLET PO SCH (08:33)
[2017-01-04] MEDS: CARVEDILOL 6.25 MG TABLET PO SCH ×2 (08:33→16:57)
[2017-01-04] MEDS: INSULIN ASPART 300 UNITS/3 ML INSULN.PEN SQ SCH ×4 (08:34→21:14)
[2017-01-04] MEDS: GRISEOFULVIN MICROSIZE 500 MG PO SCH ×2 (08:44→21:11)
[2017-01-04 10:52] VITALS: BP 147/80
[2017-01-04 14:38] VITALS: BP 112/62
--- NOTE | 2017-01-04 14:49 | PDOC ---
SUBJECTIVE: Doing well and offered no complaints OBJECTIVE: Problems: Problems Medical Problems: (1) Acute kidney failure Status: Acute (2) Altered mental state Status: Acute (3) Hyperglycemia Status: Acute (4) Hyperglycemia due to type 2 diabetes mellitus Status: Acute much improved resting flat in bed His kidney function has improved with serum down from 2.7 to 0.9mg/dl Vital Signs: Vital Signs Date Time Temp Pulse Resp B/P (MAP) Pulse Ox O2 Delivery O2 Flow Rate FiO2 01/04/17 14:38 97.5 70 20 112/62 (79) 96 Room Air 01/03/17 11:03 2.0 I & O Intake and Output 01/04/17 07:00 Intake Total 4219 ml Balance 4219 ml Intake Oral 2030 ml IV Total 2189 ml # Voids 6 # Bowel Movements 1 Labs: Laboratory Tests Test 01/02/17 16:46 01/02/17 16:50 01/02/17 17:49 01/02/17 20:47 Glucose (Fingerstick) 512 mg/dL (70-99) 275 mg/dL (70-99) White Blood Count 5.6 x10^3/uL (4.0-11.0) Red Blood Count 3.78 x10^6/uL (4.30-5.70) Hemoglobin 12.1 g/dL (13.0-17.5) Hematocrit 36.1 % (39.0-53.0) Mean Corpuscular Volume 96 fL (79-100) Mean Corpuscular Hemoglobin 32 pg (25-35) Mean Corpuscular Hemoglobin Concent 34 g/dL (31-37) Red Cell Distribution Width 15.6 % (11.5-14.5) Platelet Count 100 x10^3/uL (140-400) Neutrophils (%) (Auto) 69 % (31-73) Lymphocytes (%) (Auto) 19 % (24-48) Monocytes (%) (Auto) 10 % (0-9) Eosinophils (%) (Auto) 2 % (0-3) Basophils (%) (Auto) 0 % (0-3) Neutrophils # (Auto) 3.9 x10^3uL (1.8-7.7) Lymphocytes # (Auto) 1.1 x10^3/uL (1.0-4.8) Monocytes # (Auto) 0.6 x10^3/uL (0.0-1.1) Eosinophils # (Auto) 0.1 x10^3/uL (0.0-0.7) Basophils # (Auto) 0.0 x10^3/uL (0.0-0.2) Sodium Level 131 mmol/L (136-145) Potassium Level 3.2 mmol/L (3.5-5.1) Chloride Level 94 mmol/L (98-107) Carbon Dioxide Level 28 mmol/L (21-32) Anion Gap 9 (6-14) Blood Urea Nitrogen 28 mg/dL (8-26) Creatinine 2.4 mg/dL (0.7-1.3) Estimated GFR (Cockcroft-Gault) 28.5 Glucose Level 475 mg/dL (70-99) Calcium Level 9.7 mg/dL (8.5-10.1) Urine Collection Type Unknown Urine Color Yellow Urine Clarity Cloudy Urine pH 5.0 Urine Specific [place] 1.020 Urine Protein Neg (NEG-TRACE) Urine Glucose (UA) >=1000 mg/dL (NEG) Urine Ketones (Stick) Neg mg/dL (NEG) Urine Blood Neg (NEG) Urine Nitrite Neg (NEG) Urine Bilirubin Neg (NEG) Urine Urobilinogen Dipstick 1 mg/dL (0.2 mg/dL) Urine Leukocyte Esterase Neg (NEG) Urine RBC 3-5 /HPF (0-2) Urine WBC 5-10 /HPF (0-4) Urine Squamous Epithelial Cells Many /LPF Urine Bacteria Few /HPF (0-FEW) Urine Hyaline Casts Many /HPF Urine Mucus Marked /LPF Urine Opiates Screen Neg (NEG) Urine Methadone Screen Neg (NEG) Urine Barbiturates Neg (NEG) Urine Phencyclidine Screen Neg (NEG) Urine Amphetamine/Methamphetamine Neg (NEG) Urine Benzodiazepines Screen Neg (NEG) Urine Cocaine Screen Neg (NEG) Urine Cannabinoids Screen Neg (NEG) Urine Ethyl Alcohol Neg (NEG) Test 01/03/17 06:40 01/03/17 07:18 01/03/17 11:11 01/03/17 16:48 White Blood Count 3.6 x10^3/uL (4.0-11.0) Red Blood Count 3.92 x10^6/uL (4.30-5.70) Hemoglobin 12.5 g/dL (13.0-17.5) Hematocrit 37.8 % (39.0-53.0) Mean Corpuscular Volume 97 fL (79-100) Mean Corpuscular Hemoglobin 32 pg (25-35) Mean Corpuscular Hemoglobin Concent 33 g/dL (31-37) Red Cell Distribution Width 15.5 % (11.5-14.5) Platelet Count 61 x10^3/uL (140-400) Neutrophils (%) (Auto) 62 % (31-73) Lymphocytes (%) (Auto) 27 % (24-48) Monocytes (%) (Auto) 9 % (0-9) Eosinophils (%) (Auto) 3 % (0-3) Basophils (%) (Auto) 0 % (0-3) Neutrophils # (Auto) 2.2 x10^3uL (1.8-7.7) Lymphocytes # (Auto) 1.0 x10^3/uL (1.0-4.8) Monocytes # (Auto) 0.3 x10^3/uL (0.0-1.1) Eosinophils # (Auto) 0.1 x10^3/uL (0.0-0.7) Basophils # (Auto) 0.0 x10^3/uL (0.0-0.2) Sodium Level 138 mmol/L (136-145) Potassium Level 3.9 mmol/L (3.5-5.1) Chloride Level 100 mmol/L (98-107) Carbon Dioxide Level 31 mmol/L (21-32) Anion Gap 7 (6-14) Blood Urea Nitrogen 23 mg/dL (8-26) Creatinine 1.3 mg/dL (0.7-1.3) Estimated GFR (Cockcroft-Gault) 57.7 Glucose Level 285 mg/dL (70-99) Calcium Level 9.0 mg/dL (8.5-10.1) Glucose (Fingerstick) 239 mg/dL (70-99) 272 mg/dL (70-99) 254 mg/dL (70-99) Test 01/03/17 20:50 01/04/17 06:05 01/04/17 07:22 01/04/17 08:49 Glucose (Fingerstick) 146 mg/dL (70-99) 220 mg/dL (70-99) Sodium Level 139 mmol/L (136-145) Potassium Level 3.6 mmol/L (3.5-5.1) Chloride Level 102 mmol/L (98-107) Carbon Dioxide Level 30 mmol/L (21-32) Anion Gap 7 (6-14) Blood Urea Nitrogen 17 mg/dL (8-26) Creatinine 0.9 mg/dL (0.7-1.3) Estimated GFR (Cockcroft-Gault) 88.3 Glucose Level 268 mg/dL (70-99) Calcium Level 8.8 mg/dL (8.5-10.1) Creatine Kinase 317 U/L (39-308) C-Reactive Protein 31.9 mg/L (0-3.3) Thyroid Stimulating Hormone (TSH) 1.068 uIU/mL (0.358-3.740) Erythrocyte Sedimentation Rate 65 (0-15) Test 01/04/17 11:15 Glucose (Fingerstick) 279 mg/dL (70-99) Physical Exam: Resting flat in bed in NAD Vitals are stable the rest of clinical exam is unremalable ASSESSMENT: Metabolic encephalopathy Hyperglycemia resolved JULES resolved as his creatinine came down from 2.7 to 0.9 Rhabdomyolysis resolved PLAN: To continue current paln of management D/C I V Fluids PT/OT Will discharge to [facility] tomorrow DEONNA ARCE MD Jan 04, 2017 14:49
[2017-01-04 19:17] VITALS: BP 110/65
[2017-01-04] MEDS ORDERED: DOCUSATE SODIUM 100 MG CAPSULE PO PRN (20:00)
[2017-01-04] MEDS: AMITRIPTYLINE HCL 50 MG TABLET PO SCH (21:10)
[2017-01-04] MEDS: traZODone 150 MG TABLET. PO SCH (21:10)
[2017-01-04] MEDS: BACLOFEN 10 MG TABLET PO SCH (21:11)
[2017-01-04 23:08] VITALS: BP 128/68
[2017-01-05 02:13] LABS: HEMOGLOBIN A1C 12.3 % (4.8-5.6)
[2017-01-05 05:11] VITALS: BP 114/71
[2017-01-05 06:13] LABS: CALCIUM 8.5 mg/dL (8.5-10.1); CREATININE 0.9 mg/dL (0.7-1.3); GFR 88.3; POTASSIUM 4.1 mmol/L (3.5-5.1)
[2017-01-05] MEDS: CARVEDILOL 6.25 MG TABLET PO SCH (08:08)
[2017-01-05] MEDS: ESCITALOPRAM 20 MG TABLET. PO SCH (08:08)
[2017-01-05] MEDS: metFORMIN 500 MG TABLET PO SCH (08:08)
[2017-01-05] MEDS: LISINOPRIL 20 MG TABLET PO SCH (08:09)
[2017-01-05] MEDS: GABAPENTIN 300 MG CAPSULE. PO SCH ×2 (08:09→14:29)
[2017-01-05] MEDS: GRISEOFULVIN MICROSIZE 500 MG PO SCH (08:11)
[2017-01-05] MEDS: INSULIN ASPART 300 UNITS/3 ML INSULN.PEN SQ SCH ×2 (08:15→11:30)
[2017-01-05] MEDS: oxyCODONE IR 5 MG TABLET PO PRN (09:47)
[2017-01-05 12:05] VITALS: BP 146/69
[2017-01-05 15:05] VITALS: BP 121/69
--- NOTE | 2017-01-07 16:41 | DS ---
DATE OF DISCHARGE: 01/05/2017 HOSPITAL COURSE: The patient was admitted on 01/02/2017 with increased confusion. He apparently was last driving ____. His house was very dirty and has severe self-care deficit and initial evaluation in the Emergency Room showed that he has poorly controlled hyperglycemia with a blood sugar of more than 500. He has hyponatremia, hypokalemia and acute kidney injury with a BUN of 28, creatinine of 2.4, and he was basically started on IV fluid and insulin sliding scale and did very well. His kidney function has steadily improved. His serum sodium has improved to 140, potassium to 4.1. His BUN came down to 13 and creatinine came down from 2.4 to 0.9. His blood sugar has been much better controlled and as the patient is unable to basically take care of himself, a decision was made to admit him to the [facility] for long-term care. PHYSICAL EXAMINATION: GENERAL: On examining him today, he looked well and was clearly in no apparent respiratory distress. He was slightly pale, no jaundice, cyanosis, or thyromegaly. ____ jugular venous distention. No limb edema. VITAL SIGNS: His heart rate was 74, blood pressure 146/69, temperature was 98.1, respiratory rate was 18, and oxygen saturation was 99% on room air. HEAD, EYES, EARS, NOSE, AND THROAT: Showed normocephalic, atraumatic. NECK: Supple. HEART: Showed normal first and second heart sounds with no gallop, rub, or murmur. CHEST: Clear to auscultation. No crepitation or rhonchi. ABDOMEN: Distended, soft, nontender. NEUROLOGIC: He was awake, alert, responding appropriately. Cranial nerves intact. He moves extremities without difficulty. His intake over the last 24 hours was 1350, no output was recorded. LABORATORY DATA: This morning showed that his serum sodium was 140, potassium 4.1, chloride 105, bicarbonate 31, anion gap of 4, BUN 13, creatinine 0.9, estimated GFR was 88 mL per minute. His glucose was 205 and calcium was 8.5. His white cell count was 3600, hemoglobin 12.5, hematocrit 37.8, MCV 97, and platelet count of 61,000. His sedimentation rate was 65 and C-reactive protein was high at 31.9. TSH was 1.068. We did a CT scan of the head, which showed that the briscoe and white matter appeared normal and symmetrical for the patient's age. There is no mass effect, extraaxial fluid collection, or hydrocephalus. There is no gross bleed. There is no focal loss of briscoe-white matter distinction to suggest acute ischemia or stroke. As he has a history of nephrolithiasis, I did a CT scan of the abdomen and pelvis, which showed that there is moderate splenomegaly, nonobstructive stone in the left renal pelvis, no evidence of obstructive uropathy, apparent moderate wall thickening ____ distention. However, correlation with urinary analysis is suggested. DISCHARGE MEDICATIONS: He will be discharged to [facility] to continue on his amitriptyline 150 mg once a day at bedtime, baclofen 30 mg at bedtime, carvedilol 6.25 mg twice a day, escitalopram oxalate 20 mg once a day, gabapentin 300 mg three times a day, ____ 500 mg twice a day, insulin, he is on FlexPen as insulin sliding scale before meals, lisinopril 40 mg once a day, metformin 1000 mg twice a day, oxycodone 15 mg b.i.d. p.r.n. for back pain, and trazodone 300 mg at bedtime. FINAL DISCHARGE DIAGNOSES: 1. Altered mental status, resolved. 2. Acute kidney injury, resolved. 3. Hyponatremia, resolved. 4. Hypokalemia, resolved. 5. Poorly-controlled type 2 diabetes, much better controlled. 6. He has also obviously depression, peripheral neuropathy, hypertension, and insomnia. 7. He has thrombocytopenia with splenomegaly and he needs to be followed by tax compliance representative regarding this enlarged spleen. DEONNA ARCE MD DR: DERIC/perfecto JOB#: [id number] / [id number]
== END 2017-01-05 15:20 | DRG 637 ==
LOC: ER 16:29 → 1 SOUTH 18:18
PROVIDERS: ADMIT Internal Medicine; ATTEND Internal Medicine
DX: E11.00 Type 2 diabetes mellitus with hyperosmolarity without nonketotic hyperglycemic-hyperosmolar coma (NKHHC) (principal); N17.0 Acute kidney failure with tubular necrosis; G93.41 Metabolic encephalopathy; M62.82 Rhabdomyolysis; E87.1 Hypo-osmolality and hyponatremia; E11.22 Type 2 diabetes mellitus with diabetic chronic kidney disease; E11.42 Type 2 diabetes mellitus with diabetic polyneuropathy; F03.90 Unspecified dementia, unspecified severity, without behavioral disturbance, psychotic disturbance, mood disturbance, and anxiety; L40.9 Psoriasis, unspecified; L30.9 Dermatitis, unspecified; I12.9 Hypertensive chronic kidney disease with stage 1 through stage 4 chronic kidney disease, or unspecified chronic kidney disease; N18.9 Chronic kidney disease, unspecified; Z60.2 Problems related to living alone; M19.90 Unspecified osteoarthritis, unspecified site; M79.7 Fibromyalgia; Z80.9 Family history of malignant neoplasm, unspecified; Z87.440 Personal history of urinary (tract) infections; Z87.442 Personal history of urinary calculi; Z91.041 Radiographic dye allergy status; Z91.09 Other allergy status, other than to drugs and biological substances; E87.6 Hypokalemia
CPT/HCPCS: 36415; 70450; 74176; 80048; 81001; 82550; 82947; 83036; 84443; 85027; 85651; 86140; 87086; 93005; G0481; J1815; 97110; 97530; 97535; 99285-25; J7030

== ENCOUNTER 2018-07-21 03:52 | Inpatient (IN) | payer MEDICARE, OTHER ==
[~2018-07-21] VITALS: Ht 175.3 cm; Wt 120.3 kg
[~2018-07-21 03:52] MED LIST changes: +AMIT150T PO; +BACL10TA PO; +CARV6.2541 PO; +ESCITALOPRAM OX20 MG PO; +GABA300C8 PO; +GRIS500T5 PO; +HYDR-3165 PO; -HYDR-971 PO; +INSU100I17 SQ; +LISI40TA PO; +METF10007 PO; +OXYC5TAB4 PO; +TRAZ300T2 PO
--- NOTE | 2018-07-21 03:55 | ED.ADGEN ---
Past History Past Medical History: Anxiety, Asthma, Depression, Diabetes, Renal Failure, Other Past Surgical History: Tonsillectomy Alcohol Use: None Drug Use: None Adult General Chief Complaint Chief Complaint ".. I don't know... they sent me...." HPI HPI Patient is a 53 year old male who presents with above hx and complaints mental status change per [facility]. Pt. appears very dehydrated. Pt. very poor historian. Pt. has hx of multiple medical issues in past. Pt. has a history of hyperglycemia, acute renal failure, diabetes mellitus type 2, major depressive disorder, essential hypertension, muscle weakness, dementia, eczema, gait disorder, peripheral neuropathy, seasonal allergic rhinitis, bronchitis, anxiety disorder, and deconditioning. Pt. has been a resident of [facility] since 01/05/17 after discharge from [place] after episode acute mental status change, DM II hyperglycemia, hypertension, UTI. Patient's primary care is Dr. Wiseman. Review of Systems Review of Systems Pt. Poor Historian Constitutional: Denies fever or chills [] Eyes: Denies change in visual acuity, redness, or eye pain [] HENT: Denies nasal congestion or sore throat [] Respiratory: Denies cough or shortness of breath [] Cardiovascular: No additional information not addressed in HPI [] GI: Denies abdominal pain, nausea, vomiting, bloody stools or diarrhea [] : Denies dysuria or hematuria [] Musculoskeletal: Denies back pain or joint pain [] Integument: Denies rash or skin lesions [] Neurologic: Denies headache, focal weakness or sensory changes [] Endocrine: Denies polyuria or polydipsia [] All other systems were reviewed and found to be within normal limits, except as documented in this note. Family History Family History Not currently available Current Medications Current Medications Current Medications Medications (Trade) Dose Ordered Sig/Carlos Eduardo Start Time Stop Time Status Last Admin Dose Admin Multivitamins/ Minerals 10 ml/ Folic Acid 1 mg/ Thiamine HCl 100 mg/Lactated Ringer's 1,011.2 ml @ 1,011.2 mls/hr 1X ONCE 07/21/18 04:30 07/21/18 05:29 DC 07/21/18 04:30 1,011.2 MLS/HR Allergies Allergies Allergies Coded Allergies Type Severity Reaction Last Updated Verified Iodine and Iodide Containing Produc Allergy Intermediate rash 08/24/16 Yes povidone-iodine Allergy Intermediate rash 08/24/16 Yes soap Allergy Intermediate rash 08/24/16 Yes Physical Exam Physical Exam Constitutional: , no acute distress, non-toxic appearance. [] HENT: Normocephalic, atraumatic, bilateral external ears normal, oropharynx dry , no oral exudates, nose normal. [] Eyes: PERRLA, EOMI, conjunctiva normal, no discharge. [] Neck: Normal range of motion, no tenderness, supple, no stridor. [] Cardiovascular,:Tachycardia Heart rate regular rhythm, no murmur [] Lungs & Thorax: Bilateral breath sounds clear to auscultation [] Abdomen: Bowel sounds normal, soft, no tenderness, no masses, no pulsatile masses. Obese. Skin: Warm, dry, no erythema, no rash. [] Back: No tenderness, no CVA tenderness. [] Extremities: No tenderness, no cyanosis, no clubbing, ROM intact, no edema. [] Neurologic: Alert and oriented X 3, moves all ext. on request,, decreased plantar sensory no focal deficits noted. []DTR+ 2 patella and brachial. Psychologic: Affect flat, judgement appears impaired, confused- chronic / acute (,per senior care always some what confused, and min. insight.), mood normal. [ ] Current Patient Data Vital Signs Vital Signs Date Time Temp Pulse Resp B/P (MAP) Pulse Ox O2 Delivery O2 Flow Rate FiO2 07/21/18 04:54 81 18 115/59 (77) 95 Room Air 07/21/18 04:02 97.6 Lab Results Laboratory Tests Test 07/21/18 04:35 07/21/18 04:45 Urine Collection Type Unknown Urine Color Trina Urine Clarity Hazy Urine pH 5.0 Urine Specific [place] 1.025 Urine Protein 30 mg/dl (NEG-TRACE) Urine Glucose (UA) Neg mg/dL (NEG) Urine Ketones (Stick) 15 mg/dL (NEG) Urine Blood Neg (NEG) Urine Nitrite Neg (NEG) Urine Bilirubin Neg (NEG) Urine Urobilinogen Dipstick 0.2 mg/dL (0.2 mg/dL) Urine Leukocyte Esterase Neg (NEG) Urine RBC 0 /HPF (0-2) Urine WBC 0 /HPF (0-4) Urine Squamous Epithelial Cells Few /LPF Urine Transitional Epithelial Cells Mod /LPF Urine Renal Epithelial Cells Mod /LPF Urine Amorphous Sediment Present /HPF Urine Bacteria Few /HPF (0-FEW) Urine Hyaline Casts Few /HPF Urine Mucus Slight /LPF Urine Opiates Screen Pos (NEG) Urine Methadone Screen Neg (NEG) Urine Barbiturates Neg (NEG) Urine Phencyclidine Screen Neg (NEG) Urine Amphetamine/Methamphetamine Neg (NEG) Urine Benzodiazepines Screen Neg (NEG) Urine Cocaine Screen Neg (NEG) Urine Cannabinoids Screen Neg (NEG) Urine Ethyl Alcohol Neg (NEG) White Blood Count 5.2 x10^3/uL (4.0-11.0) Red Blood Count 3.69 x10^6/uL (4.30-5.70) L Hemoglobin 11.2 g/dL (13.0-17.5) L Hematocrit 35.0 % (39.0-53.0) L Mean Corpuscular Volume 95 fL (79-100) Mean Corpuscular Hemoglobin 30 pg (25-35) Mean Corpuscular Hemoglobin Concent 32 g/dL (31-37) Red Cell Distribution Width 15.4 % (11.5-14.5) H Platelet Count 65 x10^3/uL (140-400) L Neutrophils (%) (Auto) 66 % (31-73) Lymphocytes (%) (Auto) 21 % (24-48) L Monocytes (%) (Auto) 7 % (0-9) Eosinophils (%) (Auto) 5 % (0-3) H Basophils (%) (Auto) 1 % (0-3) Neutrophils # (Auto) 3.5 x10^3uL (1.8-7.7) Lymphocytes # (Auto) 1.1 x10^3/uL (1.0-4.8) Monocytes # (Auto) 0.3 x10^3/uL (0.0-1.1) Eosinophils # (Auto) 0.3 x10^3/uL (0.0-0.7) Basophils # (Auto) 0.0 x10^3/uL (0.0-0.2) Erythrocyte Sedimentation Rate 48 (0-15) H Sodium Level 141 mmol/L (136-145) Potassium Level 4.9 mmol/L (3.5-5.1) Chloride Level 105 mmol/L (98-107) Carbon Dioxide Level 28 mmol/L (21-32) Anion Gap 8 (6-14) Blood Urea Nitrogen 38 mg/dL (8-26) H Creatinine 3.2 mg/dL (0.7-1.3) H Estimated GFR (Cockcroft-Gault) 20.3 Glucose Level 145 mg/dL (70-99) H Calcium Level 8.8 mg/dL (8.5-10.1) Total Bilirubin 0.7 mg/dL (0.2-1.0) Direct Bilirubin 0.2 mg/dL (0.0-0.2) Aspartate Amino Transferase (AST) 63 U/L (15-37) H Alanine Aminotransferase (ALT) 77 U/L (16-63) H Alkaline Phosphatase 118 U/L (46-116) H Total Protein 7.0 g/dL (6.4-8.2) Albumin 3.1 g/dL (3.4-5.0) L EKG EKG EKG pending[] Radiology/Procedures Radiology/Procedures My interpretation CT head shows no shift, mass, edema, bleed, or fracture.[] Course & Med Decision Making Course & Med Decision Making Pertinent Labs and Imaging studies reviewed. (See chart for details) Discussed presentation, testing and tx. plan with Dr. Brown. Will admit to hydration. If no improvement may need nephrology eval. [] Final Impression Final Impression 1. Mental Status Change[] 2. DM II 3. Anemia 11.2 Hgb 4, Hx. of Dementia 5. Dehydration 6. Acute Renal Failure on Chronic Renal Insuf. BUN 38/3.2 Creat- suspect component of dehydration 7. Elevated AST 63/ALT 77 Dragon Disclaimer Dragon Disclaimer This electronic medical record was generated, in whole or in part, using a voice recognition dictation system. Dragon Disclaimer This chart was dictated in whole or in part using Voice Recognition software in a busy, high-work load, and often noisy Emergency Department environment. It may contain unintended and wholly unrecognized errors or omissions. Discharge Summary Visit Information Final Diagnosis Problems Medical Problems: (1) Dehydration Status: Acute (2) Mental status change resolved Status: Acute Brief Hospital Course Allergies Allergies Coded Allergies Type Severity Reaction Last Updated Verified Iodine and Iodide Containing Produc Allergy Intermediate rash 3/8/17 Yes povidone-iodine Allergy Intermediate rash 08/24/16 Yes soap Allergy Intermediate rash 08/24/16 Yes Vital Signs Vital Signs Date Time Temp Pulse Resp B/P (MAP) Pulse Ox O2 Delivery O2 Flow Rate FiO2 07/21/18 04:54 81 18 115/59 (77) 95 Room Air 07/21/18 04:02 97.6 Lab Results Laboratory Tests Test 07/21/18 04:35 07/21/18 04:45 Urine Collection Type Unknown Urine Color Trina Urine Clarity Hazy Urine pH 5.0 Urine Specific [place] 1.025 Urine Protein 30 mg/dl (NEG-TRACE) Urine Glucose (UA) Neg mg/dL (NEG) Urine Ketones (Stick) 15 mg/dL (NEG) Urine Blood Neg (NEG) Urine Nitrite Neg (NEG) Urine Bilirubin Neg (NEG) Urine Urobilinogen Dipstick 0.2 mg/dL (0.2 mg/dL) Urine Leukocyte Esterase Neg (NEG) Urine RBC 0 /HPF (0-2) Urine WBC 0 /HPF (0-4) Urine Squamous Epithelial Cells Few /LPF Urine Transitional Epithelial Cells Mod /LPF Urine Renal Epithelial Cells Mod /LPF Urine Amorphous Sediment Present /HPF Urine Bacteria Few /HPF (0-FEW) Urine Hyaline Casts Few /HPF Urine Mucus Slight /LPF Urine Opiates Screen Pos (NEG) Urine Methadone Screen Neg (NEG) Urine Barbiturates Neg (NEG) Urine Phencyclidine Screen Neg (NEG) Urine Amphetamine/Methamphetamine Neg (NEG) Urine Benzodiazepines Screen Neg (NEG) Urine Cocaine Screen Neg (NEG) Urine Cannabinoids Screen Neg (NEG) Urine Ethyl Alcohol Neg (NEG) White Blood Count 5.2 x10^3/uL (4.0-11.0) Red Blood Count 3.69 x10^6/uL (4.30-5.70) Hemoglobin 11.2 g/dL (13.0-17.5) Hematocrit 35.0 % (39.0-53.0) Mean Corpuscular Volume 95 fL (79-100) Mean Corpuscular Hemoglobin 30 pg (25-35) Mean Corpuscular Hemoglobin Concent 32 g/dL (31-37) Red Cell Distribution Width 15.4 % (11.5-14.5) Platelet Count 65 x10^3/uL (140-400) Neutrophils (%) (Auto) 66 % (31-73) Lymphocytes (%) (Auto) 21 % (24-48) Monocytes (%) (Auto) 7 % (0-9) Eosinophils (%) (Auto) 5 % (0-3) Basophils (%) (Auto) 1 % (0-3) Neutrophils # (Auto) 3.5 x10^3uL (1.8-7.7) Lymphocytes # (Auto) 1.1 x10^3/uL (1.0-4.8) Monocytes # (Auto) 0.3 x10^3/uL (0.0-1.1) Eosinophils # (Auto) 0.3 x10^3/uL (0.0-0.7) Basophils # (Auto) 0.0 x10^3/uL (0.0-0.2) Erythrocyte Sedimentation Rate 48 (0-15) Sodium Level 141 mmol/L (136-145) Potassium Level 4.9 mmol/L (3.5-5.1) Chloride Level 105 mmol/L (98-107) Carbon Dioxide Level 28 mmol/L (21-32) Anion Gap 8 (6-14) Blood Urea Nitrogen 38 mg/dL (8-26) Creatinine 3.2 mg/dL (0.7-1.3) Estimated GFR (Cockcroft-Gault) 20.3 Glucose Level 145 mg/dL (70-99) Calcium Level 8.8 mg/dL (8.5-10.1) Total Bilirubin 0.7 mg/dL (0.2-1.0) Direct Bilirubin 0.2 mg/dL (0.0-0.2) Aspartate Amino Transf (AST/SGOT) 63 U/L (15-37) Alanine Aminotransferase (ALT/SGPT) 77 U/L (16-63) Alkaline Phosphatase 118 U/L (46-116) Total Protein 7.0 g/dL (6.4-8.2) Albumin 3.1 g/dL (3.4-5.0) Brief Hospital Course Mr. Villa is a 53 old male who presented with dehydration and mental status change. Hx. of chronic renal issues. Admitted for dehydration. Serial labs. Admit to Dr. Brown. Discharge Information Condition at Discharge: Improved Dischare Medications Current Medications Multivitamins/ Minerals 10 ml/ Folic Acid 1 mg/ Thiamine HCl 100 mg/Lactated Ringer's 1,011.2 ml @ 1,011.2 mls/hr 1X ONCE IV Last administered on at 04:30; Admin Dose 1,011.2 MLS/HR; Start 07/21/18 at 04:30; Stop 07/21/18 at 05:29; Status DC Active Scripts Active Reported Amitriptyline Hcl 150 Mg Tablet 150 Mg PO HS LAST DOSE GIVEN: DATE: 01/04 TIME: Bedtime NEXT DOSE DUE: DATE: 01/05 TIME: Bedtime Carvedilol 6.25 Mg Tablet 6.25 Mg PO BIDWMEALS LAST DOSE GIVEN: DATE: 01/05 TIME: With Breakfast NEXT DOSE DUE: DATE: 01/05 TIME: With Supper Lisinopril 40 Mg Tablet 40 Mg PO DAILY LAST DOSE GIVEN: DATE: 01/05 TIME: AM NEXT DOSE DUE: DATE: 01/06 TIME: AM Escitalopram Oxalate 20 Mg Tablet 20 Mg PO DAILY LAST DOSE GIVEN: DATE: 01/05 TIME: AM NEXT DOSE DUE: DATE: 01/06 TIME: AM Gabapentin 300 Mg Capsule 300 Mg PO TID LAST DOSE GIVEN: DATE: 01/05 TIME: 2 PM NEXT DOSE DUE: DATE: 01/05 TIME: Bedtime Griseofulvin (Griseofulvin,Microsize) 500 Mg Tablet 500 Mg PO BID Not given at this hospital stay; med unavailable Trazodone Hcl 300 Mg Tablet 300 Mg PO HS LAST DOSE GIVEN: DATE: 01/04 TIME: Bedtime NEXT DOSE DUE: DATE: 01/05 TIME: Bedtime Oxycodone Hcl 5 Mg Tablet 15 Mg PO PRN BID PRN LAST DOSE GIVEN: DATE: 01/05 TIME: 0945 AM PRN BID Baclofen 10 Mg Tablet 30 Mg PO HS LAST DOSE GIVEN: DATE: 01/04 TIME: Bedtime NEXT DOSE DUE: DATE: 01/05 TIME: Bedtime Novolog Flexpen (Insulin Aspart) 100 Unit/1 Ml Insuln.pen 0-7 Unit SQ TIDACHC PRN Metformin Hcl 1,000 Mg Tablet 1,000 Mg PO BIDWMEALS LAST DOSE GIVEN: DATE: 01/05 TIME: With Breakfast NEXT DOSE DUE: DATE: 01/05 TIME: With UDAY Roberson MD Jul 21, 2018 03:55
[2018-07-21] MEDS ORDERED: MVI, ADULT NO.4 WITH VIT K 10 ML, FOLIC ACID SYRINGE for ER 1 MG, THIAMINE INJ 100 MG i... IV ONE ×4 (04:30)
[2018-07-21 05:15] LABS: BASO % 1 % (0-3); EOS # 0.3 x10^3/uL (0.0-0.7); EOS % 5 % (0-3); HEMOGLOBIN 11.2 g/dL (13.0-17.5); LYMPH # 1.1 x10^3/uL (1.0-4.8); LYMPH % 21 % (24-48); MEAN CORPUSCULAR HEMOGLOBIN 30 pg (25-35); MEAN CORPUSCULAR HGB CONC 32 g/dL (31-37); MEAN CORPUSCULAR VOLUME 95 fL (79-100); MONO # 0.3 x10^3/uL (0.0-1.1); MONO % 7 % (0-9); NEUT # 3.5 x10^3uL (1.8-7.7); NEUT % 66 % (31-73); PLATELET COUNT 65 x10^3/uL (140-400); RED BLOOD COUNT 3.69 x10^6/uL (4.30-5.70); RED CELL DISTRIBUTION WIDTH 15.4 % (11.5-14.5); WHITE BLOOD COUNT 5.2 x10^3/uL (4.0-11.0)
[2018-07-21 05:16] LABS: BARBITURATES NEG (NEG); BENZODIAZEPINES NEG (NEG); CANNABINOIDS NEG (NEG); COCAINE NEG (NEG); METHADONE NEG (NEG); OPIATES POS (NEG); PHENCYCLIDINE NEG (NEG)
[2018-07-21 05:18] LABS: CLARITY,URINE HAZY; COLOR,URINE AMBER
[2018-07-21 05:19] LABS: AMORPHOUS SEDIMENT,UR PRESENT /HPF; BACTERIA,URINE FEW /HPF (0-FEW); BILIRUBIN,URINE NEG (NEG); GLUCOSE,URINE NEG (NEG); NITRITE,URINE NEG (NEG); RBC,URINE 0 /HPF (0-2); SQUAMOUS EPITHELIAL CELL,UR FEW /LPF; UROBILINOGEN,URINE 0.2 mg/dL (0.2 mg/dL); WBC,URINE 0 /HPF (0-4)
[2018-07-21 05:20] LABS: HYALINE CASTS, URINE FEW /HPF
[2018-07-21 05:22] LABS: AMPHETAMINE/METHAMPHETAMINE NEG (NEG)
--- NOTE | 2018-07-21 05:31 | RAD ---
CT head without contrast COMPARISON: CT head January 02, 2017. HISTORY: Mental status change. PQRS statement: CT scans at this facility use dose reduction including either automated exposure control, iterative reconstructions, and /or weight based radiation dosing via mA and kV modification when appropriate to reduce radiation dose to as low as reasonably achievable. TECHNIQUE: [address] imaging skull base to vertex. FINDINGS: No intracranial hemorrhage, mass, hydrocephalus, extra-axial fluid collections or infarction. No acute ischemic change. Mild soft tissue groundglass density of the scalp at the vertex could be mild edema or a scar, no scalp hematoma. Opacification of the left anterior ethmoid sinuses. Orbits, mastoids and bones are unremarkable. IMPRESSION: No acute intracranial CT abnormality. Electronically signed by: Elpidio Lockwood MD (07/21/2018 5:26 AM) [facility]
[2018-07-21 05:33] LABS: ALBUMIN 3.1 g/dL (3.4-5.0); CALCIUM 8.8 mg/dL (8.5-10.1); CREATININE 3.2 mg/dL (0.7-1.3); DIRECT BILIRUBIN 0.2 mg/dL (0.0-0.2); GFR 20.3; POTASSIUM 4.9 mmol/L (3.5-5.1); TOTAL BILIRUBIN 0.7 mg/dL (0.2-1.0)
[2018-07-21] MEDS ORDERED: ONDANSETRON PF 4 MG/2 ML VIAL. IV PRN (05:45)
[2018-07-21] MEDS: IV RINGERS SOLUTION,LACTATED 1,000 ML IV SCH ×4 (07:47→21:00)
[2018-07-21] MEDS ORDERED: LUBI24CA7 PO (07:55)
[2018-07-21] MEDS ORDERED: LORA-254 PO (07:55)
[2018-07-21] MEDS ORDERED: CRAN450C PO (07:55)
[2018-07-21] MEDS ORDERED: BUSP10TA PO (07:55)
[2018-07-21] MEDS ORDERED: ARIP2TAB35 PO (07:55)
[2018-07-21] MEDS ORDERED: DICL100G18 TP (07:55)
[2018-07-21] MEDS ORDERED: FEXO180T16 PO (07:55)
[2018-07-21] MEDS ORDERED: DULO60CA6 PO (07:55)
[2018-07-21] MEDS ORDERED: DOCU-109 PO (07:55)
[2018-07-21] MEDS ORDERED: TAMS0.4C97 PO (07:55)
[2018-07-21] MEDS ORDERED: GABA600T7 PO (07:56)
[2018-07-21] MEDS ORDERED: GABA800T5 PO (07:56)
[2018-07-21 08:00] VITALS: BP 116/61
[2018-07-21] MEDS ORDERED: FLUT9.9S NS (08:56)
[2018-07-21] MEDS ORDERED: GABA-586 PO (08:56)
[2018-07-21] MEDS ORDERED: CALC60CR2 TP (08:58)
[2018-07-21] MEDS ORDERED: HYDR-2145 PO (08:59)
[2018-07-21] MEDS ORDERED: PSYL3.4P PO (10:18)
[2018-07-21] MEDS ORDERED: LISI40TA PO (10:18)
[2018-07-21] MEDS ORDERED: MULT1TAB52 PO (10:18)
[2018-07-21] MEDS ORDERED: INSU100I17 SQ (10:18)
[2018-07-21] MEDS ORDERED: OXYC30TA PO (10:18)
[2018-07-21] MEDS ORDERED: METF10007 PO (10:18)
[2018-07-21] MEDS ORDERED: INSU100V13 SQ (10:18)
[2018-07-21] MEDS ORDERED: ATOR40TA PO (10:18)
[2018-07-21] MEDS ORDERED: HYDR453. TP (10:18)
[2018-07-21] MEDS ORDERED: GUAI12003 PO (10:18)
[2018-07-21] MEDS ORDERED: APRE30TA2 PO (10:18)
[2018-07-21] MEDS ORDERED: ONDA4TAB7 PO (10:25)
[2018-07-21] MEDS ORDERED: ACET325T9 PO (10:25)
[2018-07-21] MEDS ORDERED: CETI10TA22 PO (10:25)
[2018-07-21] MEDS ORDERED: TRAZ300T2 PO (10:25)
[2018-07-21] MEDS ORDERED: SENN-161 PO (10:25)
[2018-07-21] MEDS ORDERED: POTA20TA82 PO (10:25)
[2018-07-21 10:32] VITALS: BP 126/57
[2018-07-21] MEDS ORDERED: DICLOFENAC SODIUM 1% TOPICAL GEL 100GM TUBE. TP PRN (12:00)
[2018-07-21] MEDS ORDERED: ACETAMINOPHEN 325 MG TABLET PO PRN (12:00)
[2018-07-21] MEDS ORDERED: NON FORMULARY ITEM (Ondansetron Hcl (Zofran) 1 TAB) PO SCH (12:00)
[2018-07-21] MEDS ORDERED: oxyCODONE IR 5 MG TABLET PO PRN (12:00)
[2018-07-21] MEDS ORDERED: DEXTROSE 50% 25 GM / 50ML DISP.SYRIN. IV PRN (12:45)
--- NOTE | 2018-07-21 12:50 | HP ---
ADMIT DATE: 07/21/2018 HISTORY OF PRESENT ILLNESS: The patient is a 53-year-old male patient, a resident at [facility] and [facility], who was brought to the Emergency Room apparently for altered mental status. The patient, himself does not really give any useful information, has no insight on his problems. He was evaluated in the Emergency Room, was found to be extremely dehydrated. His BUN and creatinine was found to be extremely elevated at 38 and 3.2. Two years ago his creatinine was only 0.9 mg/dL. He was started on IV fluid and admitted to be followed closely. PAST MEDICAL HISTORY: Significant for hypertension, chronic renal insufficiency, type 2 diabetes, eczema, has also history of kidney stones and dementia. PAST SURGICAL HISTORY: Unremarkable. FAMILY HISTORY: Unremarkable. SOCIAL HISTORY: He is a resident at the [facility] for the last 2 years. He does not smoke, drink alcohol or use recreational drugs. He claims that he is retired from [employer]. ALLERGIES: He is allergic to IODINE, IODINE CONTAINING PRODUCT and POVIDONE IODINE AND SOAP. MEDICATIONS: He is currently on following medications: He is on cetirizine 10 mg once a day, fexofenadine 180 mg once a day, 500 mg twice a day. He is on tamsulosin 0.4 mg twice a day, baclofen 10 mg at bedtime, atorvastatin calcium 40 mg once a day, carvedilol 6.25 mg once a day, lisinopril 40 mg once a day, diclofenac sodium for Voltaren gel 1 gram every 8 hours, oxycodone 15 mg twice a day, oxycodone extended release 30 mg at bedtime. He is on Tylenol 650 mg every 4 hours, gabapentin 300 mg 3 times a day, amitriptyline 100 mg at bedtime, duloxetine 60 mg daily. He is on escitalopram oxalate 20 mg daily, trazodone 300 mg at bedtime. He is on aripiprazole 2.5 mg daily and lorazepam 1 mg twice a day, buspirone 10 mg 3 times a day, potassium chloride 20 mEq daily, hydrochlorothiazide 25 mg once a day, guaifenesin for Mucinex 1200 mg twice a day, Flonase 2 sprays to each nostril once a day, Colace 200 mg twice a day, Amitiza 24 mcg once a day, psyllium husk for Aspartame 3.4 grams twice a day, Senna-S 1 tablet twice at bedtime, ondansetron 4 mg daily every 6 hours, metformin 1000 mg twice a day. He is on NovoLog insulin as insulin sliding scale before meals and he gets 20 units scheduled before meals and Levemir insulin 70 units subcutaneously twice a day, hydrocortisone cream applied topically twice a day, Dovonex 1 gram topically twice a day, multivitamin 1 tablet once a day, Otezla 30 mg p.o. b.i.d., cranberry fruit 450 mg daily. REVIEW OF SYSTEMS: As per history of present illness. PHYSICAL EXAMINATION: GENERAL: On arrival to the Emergency Room, the patient looked well and was clearly in no apparent respiratory distress, slightly pale, but no jaundice, cyanosis, or thyromegaly. No jugular venous distension. No limb edema. VITAL SIGNS: His heart rate was 84, blood pressure was 121/74, temperature was 97.6, respiratory rate was 18 and oxygen saturation was 93% on room air. HEAD, EYES, EARS, NOSE AND THROAT: Showed normocephalic, atraumatic. NECK: Supple. HEART: Showed normal first and second heart sounds. No gallop or murmur. CHEST: Clear to auscultation. No crepitation or rhonchi. ABDOMEN: Distended, soft, nontender. No guarding or rigidity. No organomegaly. All hernial orifice intact. Bowel sounds normal. NEUROLOGIC: He is clearly demented, but without any obvious lateralizing sign. All his cranial nerves are intact. EXTREMITIES: He moves extremities without difficulty. LABORATORY DATA: On arrival showed a white cell count 5200, hemoglobin 11, hematocrit 35, MCV 95, and a platelet count of 65,000 with normal manual differential. His sedimentation rate was 48 mm per hour. His serum sodium was 141, potassium was 4.9, chloride 105, bicarbonate 28, anion gap of 8, BUN 38, creatinine 3.2, estimated GFR was 20 mL per minute, his glucose 145, calcium was 8.8. Total bilirubin is normal. AST, ALT, alkaline phosphatase are all elevated. Ammonia was 57. Total protein was 7, albumin was 3.1. Urinalysis showed the urine was vahid, hazy with a pH of 5, specific gravity of 1.025. There is small amount of protein. The urine was negative for glucose. There was trace of ketones. The urine was negative for blood, nitrite and leukocyte esterase. There are no RBCs, no WBCs. There are very few bacteria. His toxic screen was positive for opiates and negative for all other drugs. He did have a CT scan of the head, which showed no intracranial hemorrhage, mass, hydrocephalus, extraaxial fluid collection or infarction. No acute ischemic changes, mild soft tissue ground glass density of the scalp at the vertex could be mild edema or scar. No scalp hematoma opacification of the left anterior ethmoid, sinuses, orbits, mastoid and bones are all unremarkable. IMPRESSION: In summary, this is a 53-year-old male patient, a resident at [facility], who was transferred to the Emergency Room with altered mental status, was found to have acute kidney injury. The last known serum creatinine was about 2 years ago and was 0.9 mg/dL. He is on multiple nephrotoxic medication including hydrochlorothiazide, lisinopril, metformin. PLAN: My plan is to discontinue all these medications. I will also scan his bladder to make sure does not have any retention. As you know, huge amount of amitriptyline that might cause urinary retention. We will continue the IV fluid. Continue to monitor his blood sugar and start him on insulin sliding scale. DEONNA ARCE MD DR: DERIC/perfecto JOB#: [id number] / [id number]
[2018-07-21] MEDS: CITALOPRAM 20 MG TABLET. PO SCH (12:53)
[2018-07-21] MEDS: ARIPiprazole 5 MG TABLET PO SCH (12:53)
[2018-07-21] MEDS: DULoxetine HCL 60 MG CAPSULE.DR PO SCH (12:53)
[2018-07-21] MEDS: DOCUSATE SODIUM 100 MG CAPSULE PO SCH ×2 (12:54→21:38)
[2018-07-21] MEDS: LORazepam 0.5 MG TABLET PO SCH ×2 (12:54→21:36)
[2018-07-21] MEDS ORDERED: FLUTICASONE 50MCG/NASAL SPRAY 16GM BOTTLE. NS PRN ×2 (13:00→16:03)
[2018-07-21] MEDS: LUBIPROSTONE 24 MCG CAPSULE PO SCH (13:00)
[2018-07-21] MEDS: GABAPENTIN 300 MG CAPSULE. PO SCH ×2 (13:06→21:37)
[2018-07-21] MEDS: LISINOPRIL 20 MG TABLET PO SCH (13:06)
[2018-07-21] MEDS: busPIRone 10 MG TABLET. PO SCH ×2 (13:07→21:38)
[2018-07-21] MEDS: MULTIVITAMIN with MINERAL TABLET. PO SCH (13:07)
[2018-07-21 15:42] VITALS: BP 129/68
[2018-07-21 16:14] LABS: CREATININE 2.1 mg/dL (0.7-1.3); POTASSIUM 5.2 mmol/L (3.5-5.1)
[2018-07-21] MEDS: CARVEDILOL 6.25 MG TABLET PO SCH (17:10)
[2018-07-21] MEDS: INSULIN LISPRO 300 UNITS/3 ML INSULN.PEN. SQ SCH (17:15)
[2018-07-21] MEDS: ONDANSETRON ODT 4 MG TAB.RAPDIS PO SCH (18:00)
[2018-07-21 19:42] VITALS: BP 153/72
[2018-07-21] MEDS: GRISEOFULVIN MICROSIZE 500 MG PO SCH (21:00)
[2018-07-21] MEDS: NON FORMULARY ITEM (Apremilast (Otezla) 30 MG) PO SCH (21:00)
[2018-07-21] MEDS ORDERED: CALCIPOTRIENE 0.005% TOPICAL CREAM 60GM TUBE. TP SCH (21:00)
--- NOTE | 2018-07-21 21:10 | RAD ---
Single view chest dated 07/21/2018. Comparison made to 08/24/2016. CLINICAL INDICATION: Weakness. FINDINGS: Single upright portable exam performed. Study is limited due to low lung volumes. Heart and mediastinal contours are stable. There is some increased density at the retrocardiac left base. No pleural effusion or pneumothorax. Lungs are otherwise clear. IMPRESSION: Limited exam due to low lung volumes. Increased density at the left base likely represents atelectasis and/or vascular crowding. If indicated, follow-up PA and lateral exam at full inspiration to better evaluate. Electronically signed by: Nadir Laughlin MD (07/21/2018 9:05 PM) [facility]
[2018-07-21] MEDS: SENNOSIDES/DOCUSATE 8.6/50MG TABLET. PO SCH (21:38)
[2018-07-21] MEDS: TAMSULOSIN 0.4 MG CAP.ER.24H. PO SCH (21:38)
[2018-07-21] MEDS: traZODone 100 MG TABLET. PO SCH (21:38)
[2018-07-21] MEDS: AMITRIPTYLINE HCL 50 MG TABLET PO SCH (21:39)
[2018-07-21] MEDS: oxyCODONE ER 15 MG TAB.ER.12H PO SCH (21:39)
[2018-07-21] MEDS: HYDROCORTISONE 1% TOPICAL CREAM 30GM TUBE. TP SCH (21:44)
[2018-07-21 23:03] VITALS: BP 150/53
[2018-07-22] MEDS: IV RINGERS SOLUTION,LACTATED 1,000 ML IV SCH ×6 (03:30→23:50)
[2018-07-22] MEDS: ONDANSETRON ODT 4 MG TAB.RAPDIS PO SCH ×5 (05:27→23:49)
[2018-07-22 05:35] VITALS: BP 156/78
[2018-07-22 07:49] LABS: BASO % 1 % (0-3); EOS # 0.2 x10^3/uL (0.0-0.7); EOS % 6 % (0-3); HEMATOCRIT 31.6 % (39.0-53.0); HEMOGLOBIN 10.3 g/dL (13.0-17.5); LYMPH % 31 % (24-48); MEAN CORPUSCULAR HEMOGLOBIN 31 pg (25-35); MEAN CORPUSCULAR HGB CONC 33 g/dL (31-37); MEAN CORPUSCULAR VOLUME 94 fL (79-100); MONO # 0.2 x10^3/uL (0.0-1.1); MONO % 6 % (0-9); NEUT # 1.7 x10^3uL (1.8-7.7); NEUT % 56 % (31-73); PLATELET COUNT 65 x10^3/uL (140-400); RED BLOOD COUNT 3.38 x10^6/uL (4.30-5.70); RED CELL DISTRIBUTION WIDTH 15.2 % (11.5-14.5); WHITE BLOOD COUNT 3.1 x10^3/uL (4.0-11.0)
[2018-07-22 08:00] LABS: ALBUMIN 2.8 g/dL (3.4-5.0); ALBUMIN/GLOBULIN RATIO 0.8 (1.0-1.7); CALCIUM 8.9 mg/dL (8.5-10.1); CREATININE 1.4 mg/dL (0.7-1.3); GFR 52.6; POTASSIUM 4.6 mmol/L (3.5-5.1); TOTAL BILIRUBIN 0.7 mg/dL (0.2-1.0); TOTAL PROTEIN 6.5 g/dL (6.4-8.2)
[2018-07-22] MEDS: DULoxetine HCL 60 MG CAPSULE.DR PO SCH (08:25)
[2018-07-22] MEDS: DOCUSATE SODIUM 100 MG CAPSULE PO SCH ×2 (08:25→20:29)
[2018-07-22] MEDS: CITALOPRAM 20 MG TABLET. PO SCH (08:25)
[2018-07-22] MEDS: LORazepam 0.5 MG TABLET PO SCH ×2 (08:25→20:29)
[2018-07-22] MEDS: ARIPiprazole 5 MG TABLET PO SCH (08:25)
[2018-07-22] MEDS: GABAPENTIN 300 MG CAPSULE. PO SCH ×3 (08:25→20:30)
[2018-07-22] MEDS: TAMSULOSIN 0.4 MG CAP.ER.24H. PO SCH ×2 (08:26→20:28)
[2018-07-22] MEDS: LISINOPRIL 20 MG TABLET PO SCH (08:26)
[2018-07-22] MEDS: MULTIVITAMIN with MINERAL TABLET. PO SCH (08:26)
[2018-07-22] MEDS: busPIRone 10 MG TABLET. PO SCH ×3 (08:26→20:29)
[2018-07-22] MEDS: LUBIPROSTONE 24 MCG CAPSULE PO SCH (08:27)
[2018-07-22] MEDS: CARVEDILOL 6.25 MG TABLET PO SCH ×2 (08:27→17:27)
[2018-07-22] MEDS: CETIRIZINE HCL 10 MG TABLET PO SCH (08:29)
[2018-07-22] MEDS: PSYLLIUM SEED (WITH SUGAR) PACKET. PO SCH ×2 (08:29→20:28)
[2018-07-22] MEDS: INSULIN LISPRO 300 UNITS/3 ML INSULN.PEN. SQ SCH ×3 (08:31→17:29)
[2018-07-22] MEDS: HYDROCORTISONE 1% TOPICAL CREAM 30GM TUBE. TP SCH ×2 (09:00→20:28)
[2018-07-22] MEDS: NON FORMULARY ITEM (Apremilast (Otezla) 30 MG) PO SCH ×2 (09:00→20:31)
[2018-07-22] MEDS ORDERED: CRANBERRY FRUIT 450 MG PO SCH (09:00)
[2018-07-22] MEDS ORDERED: NON FORMULARY ITEM (Lisinopril 1 TAB) PO SCH (09:00)
[2018-07-22] MEDS: GRISEOFULVIN MICROSIZE 500 MG PO SCH ×2 (09:00→20:31)
[2018-07-22 10:20] VITALS: BP 132/80
--- NOTE | 2018-07-22 11:18 | PN ---
DATE: 07/22/2018 SUBJECTIVE: The patient is resting, slightly propped up in bed, in no apparent respiratory distress. He is awake, alert, continued to be somewhat confused, but otherwise his lab work has improved dramatically. His sodium is down to 4.6 from 5.2. His BUN is down from 38-27 and creatinine down from 3.2-1.4. PHYSICAL EXAMINATION: GENERAL: When I examined him this morning, he looked well and was clearly in no apparent respiratory distress, slightly pale, but no jaundice, cyanosis, or thyromegaly. No jugular venous distension. No limb edema. VITAL SIGNS: His heart rate was 82, blood pressure 156/78, temperature was 97.9, respiratory rate was 20, and oxygen saturation was 95% on room air. HEAD, EYES, EARS, NOSE AND THROAT: Showed normocephalic, atraumatic. NECK: Supple. HEART: Showed normal first and second heart sounds. No gallop, rub or murmur. CHEST: Clear to auscultation. No crepitation or rhonchi. ABDOMEN: Distended, soft, nontender. NEUROLOGIC: He is awake, alert, somewhat confused. All his cranial nerves are intact. He moves extremities without difficulty. He ambulates with a cane. His intake over the last 24 hours was 1499, output was 1950. LABORATORY DATA: As of this morning, his white cell count is down to 3100, hemoglobin 10, hematocrit 31, MCV 94 and platelet count of 65,000. His chemistry showed serum sodium 140, potassium of 4.6, chloride 105, bicarbonate 28, anion gap of 7, BUN 27, creatinine 1.4, estimated GFR was 52 mL per minute, his glucose 194, calcium was 8.9. Total bilirubin, AST, ALT, alkaline phosphatase were normal. Total protein was 6.5, albumin was 2.8. ASSESSMENT: 1. Acute on chronic renal failure, resolving. 2. Hypertension, reasonably controlled. 3. Type 2 diabetes mellitus, well controlled and has history of renal stones, dementia. PLAN: My plan is to continue with IV fluid as of now. I would continue to hold his hydrochlorothiazide, lisinopril and metformin for today. I will repeat all his lab work including ammonia and prothrombin time tomorrow and decide further management accordingly. DEONNA ARCE MD DR: Popeye JOB#: [id number] / [id number]
[2018-07-22 14:55] VITALS: BP 130/72
[2018-07-22 19:48] VITALS: BP 152/76
[2018-07-22] MEDS: SENNOSIDES/DOCUSATE 8.6/50MG TABLET. PO SCH (20:28)
[2018-07-22] MEDS: traZODone 100 MG TABLET. PO SCH (20:29)
[2018-07-22] MEDS: AMITRIPTYLINE HCL 50 MG TABLET PO SCH (20:30)
[2018-07-22] MEDS: oxyCODONE ER 15 MG TAB.ER.12H PO SCH (20:30)
[2018-07-22 23:27] VITALS: BP 126/71
[2018-07-23] MEDS: IV RINGERS SOLUTION,LACTATED 1,000 ML IV SCH ×2 (05:06→13:17)
[2018-07-23 05:42] VITALS: BP 157/80
[2018-07-23] MEDS: ONDANSETRON ODT 4 MG TAB.RAPDIS PO SCH ×2 (06:00→13:16)
[2018-07-23 06:28] LABS: HEMATOCRIT 34.9 % (39.0-53.0); HEMOGLOBIN 11.4 g/dL (13.0-17.5); RED BLOOD COUNT 3.71 x10^6/uL (4.30-5.70); RED CELL DISTRIBUTION WIDTH 15.2 % (11.5-14.5); WHITE BLOOD COUNT 2.4 x10^3/uL (4.0-11.0)
[2018-07-23 06:44] LABS: CALCIUM 9.1 mg/dL (8.5-10.1); CREATININE 1.2 mg/dL (0.7-1.3); GFR 62.9; POTASSIUM 4.8 mmol/L (3.5-5.1)
[2018-07-23] MEDS: GRISEOFULVIN MICROSIZE 500 MG PO SCH (09:00)
[2018-07-23] MEDS: LUBIPROSTONE 24 MCG CAPSULE PO SCH (09:00)
[2018-07-23] MEDS: HYDROCORTISONE 1% TOPICAL CREAM 30GM TUBE. TP SCH (09:00)
[2018-07-23] MEDS: NON FORMULARY ITEM (Apremilast (Otezla) 30 MG) PO SCH (09:00)
--- NOTE | 2018-07-23 09:05 | DISCH ---
DISCHARGE ORDERS CONDITION AT DISCHARGE: Stable Code Status: Full SNF STAY <30 DAYS: No POST DISCHARGE ORDERS: ACTIVITY ORDERS: Resume previous activity, Activity as tolerated DIET AFTER DISCHARGE: ADA TREATMENT/EQUIPMENT ORDERS: ADAPTIVE EQUIPMENT NEEDED: Cane RESPIRATORY EQUIPMENT: Oxygen, CPAP DISCHARGE MEDICATIONS: Home Meds Reported Medications Cetirizine Hcl (ZYRTEC) 10 Mg Tablet, 1 TAB PO DAILY for ., #30 TAB 2 Refills 07/21/18 Ondansetron Hcl (ZOFRAN) 4 Mg Tablet, 1 TAB PO Q6HRS for ., #20 TAB 07/21/18 Acetaminophen (TYLENOL) 325 Mg Tablet, 1 TAB PO PRN Q4HRS for ., #30 TAB 07/21/18 Trazodone Hcl (TRAZODONE HCL) 300 Mg Tablet, 1 TAB PO QHS for ., #30 TAB 1 Refill 07/21/18 Sennosides/Docusate Sodium (SENNA-DOCUSATE SODIUM TABLET) 1 Each Tablet, 1 EACH PO QHS for ., TAB 07/21/18 Potassium Chloride (POTASSIUM CHLORIDE) 20 Meq Tablet.er, 20 MEQ PO DAILY for . , TAB 07/21/18 Oxycodone Hcl (OXYCODONE HCL EXTEND.RELEASE) 30 Mg Tablet, 30 MG PO HS for PAIN , TAB 07/21/18 Apremilast (Otezla) 30 Mg Tablet, 30 MG PO BID for eczema , TAB 07/21/18 Insulin Aspart (NOVOLOG FLEXPEN) 100 Unit/1 Ml Insuln.pen, 20 UNIT SQ TIDAC for diabetes, SYR 07/21/18 Multivitamin (MULTIVITAMINS) 1 Each Tablet, 1 TAB PO DAILY for supplement, #90 TAB 3 Refills 07/21/18 Guaifenesin (MUCINEX) 1,200 Mg Tbmp.12hr, 1 TAB PO BID for rhinitis, #14 TAB 07/21/18 Metformin Hcl (METFORMIN HCL) 1,000 Mg Tablet, 1 TAB PO BID for diabetes, #60 TAB 5 Refills 07/21/18 Psyllium Husk/Aspartame (METAMUCIL FIBER SINGLES PACKET) 3.4 Gm Powd.pack, 3.4 GM PO BID for constipation, PKT 07/21/18 Lisinopril (LISINOPRIL) 40 Mg Tablet, 1 TAB PO DAILY for HTN, #30 TAB 5 Refills 07/21/18 Atorvastatin Calcium (LIPITOR) 40 Mg Tablet, 1 TAB PO QHS for cholesterol , #90 TAB 1 Refill 07/21/18 Insulin Detemir (LEVEMIR) 100 Unit/1 Ml Vial, 70 UNIT SQ BID for diabetes, VIAL 07/21/18 Hydrocortisone (HYDROCORTISONE) 453.6 Gm Cream..g., 1 DEXTER TP BID for rash, #15 EACH 07/21/18 Hydrochlorothiazide (HYDROCHLOROTHIAZIDE TABLET ) 25 Mg Tablet, 25 MG PO DAILY for DIURETIC, TAB 0 Refills 07/21/18 Calcipotriene (Dovonex) 60 Gm Cream..g., 1 GM TP BID for wound, EACH 07/21/18 Gabapentin (GABAPENTIN ) 300 Mg Capsule, 3 CAP PO TID for NEUROGENIC PAIN, CAP 07/21/18 Fluticasone Propionate (Flonase Allergy Relief) 9.9 Ml Home.susp, 2 SPRAYS NS DAILY PRN for ALLERGIES, BOTTLE 07/21/18 Tamsulosin Hcl (FLOMAX) 0.4 Mg Cap.er.24h, 1 CAP PO BID for acute kidney , #30 CAP 11 Refills 07/21/18 Diclofenac Sodium (VOLTAREN) 100 Gm Gel..gram., 1 GM TP Q8HRS PRN for PAIN, # 100 GM 2 Refills 07/21/18 Duloxetine Hcl (CYMBALTA) 60 Mg Capsule.dr, 1 CAP PO DAILY for depression, #90 CAP 3 Refills 07/21/18 Cranberry Fruit Concentrate (CRANBERRY) 450 Mg Capsule, 450 MG PO DAILY for supplement, CAP 07/21/18 Docusate Sodium (COLACE) 100 Mg Capsule, 2 CAP PO BID for constipation, #30 CAP 07/21/18 Buspirone Hcl (BUSPIRONE HCL) 10 Mg Tablet, 1 TAB PO TID for anxiety, #60 TAB 1 Refill 07/21/18 Lorazepam (ATIVAN) 1 Mg Tablet, 0.5 MG PO BID for anxiety, TAB 07/21/18 Lubiprostone (AMITIZA) 24 Mcg Capsule, 1 CAP PO DAILY for constipation, #60 CAP 5 Refills 07/21/18 Fexofenadine Hcl (FEXOFENADINE HCL) 180 Mg Tablet, 1 TAB PO DAILY for allergy, # 30 TAB 5 Refills 07/21/18 Aripiprazole (ABILIFY) 2 Mg Tablet, 2.5 MG PO DAILY for major depressive , TAB 07/21/18 Amitriptyline Hcl (AMITRIPTYLINE HCL) 150 Mg Tablet, 100 MG PO HS for depressive disorder, TAB LAST DOSE GIVEN: DATE: 01/04 TIME: Bedtime NEXT DOSE DUE: DATE: 01/05 TIME: Bedtime 01/03/17 Carvedilol (CARVEDILOL ) 6.25 Mg Tablet, 6.25 MG PO BIDWMEALS for HYPERTENSION , TAB LAST DOSE GIVEN: DATE: 01/05 TIME: With Breakfast NEXT DOSE DUE: DATE: 01/05 TIME: With Supper 01/03/17 Lisinopril (LISINOPRIL) 40 Mg Tablet, 40 MG PO DAILY for FOR HYPERTENSION, #30 TAB 0 Refills LAST DOSE GIVEN: DATE: 01/05 TIME: AM NEXT DOSE DUE: DATE: 01/06 TIME: AM 01/03/17 Escitalopram Oxalate (ESCITALOPRAM OXALATE) 20 Mg Tablet, 20 MG PO DAILY for ANTI-DEPRESSANT, #30 TAB 0 Refills LAST DOSE GIVEN: DATE: 01/05 TIME: AM NEXT DOSE DUE: DATE: 01/06 TIME: AM 01/03/17 Griseofulvin,Microsize (GRISEOFULVIN) 500 Mg Tablet, 500 MG PO BID for SCALING ON POSTERIOR HEAD, TAB Not given at this hospital stay; med unavailable 01/02/17 Trazodone Hcl (TRAZODONE HCL) 300 Mg Tablet, 300 MG PO HS for INSOMNIA, TAB LAST DOSE GIVEN: DATE: 01/04 TIME: Bedtime NEXT DOSE DUE: DATE: 01/05 TIME: Bedtime 01/02/17 Oxycodone Hcl (OXYCODONE HCL IMMED.RELEASE ) 5 Mg Tablet, 15 MG PO PRN BID PRN for BACK PAIN, TAB LAST DOSE GIVEN: DATE: 01/05 TIME: 0945 AM PRN BID 01/02/17 Baclofen (BACLOFEN) 10 Mg Tablet, 10 MG PO HS for MUSCLE RELAXER, #30 TAB 0 Refills LAST DOSE GIVEN: DATE: 01/04 TIME: Bedtime NEXT DOSE DUE: DATE: 01/05 TIME: Bedtime 01/02/17 Insulin Aspart (NOVOLOG FLEXPEN) 100 Unit/1 Ml Insuln.pen, 0-7 UNIT SQ TIDACHC PRN for ELEVATED BLOOD SUGAR, SYR 01/02/17 Metformin Hcl (METFORMIN HCL) 1,000 Mg Tablet, 1000 MG PO BIDWMEALS for ANTI- DIABETIC, TAB 0 Refills LAST DOSE GIVEN: DATE: 01/05 TIME: With Breakfast NEXT DOSE DUE: DATE: 01/05 TIME: With Supper 01/02/17 DEONNA ARCE MD Jul 23, 2018 09:05
[2018-07-23] MEDS: LORazepam 0.5 MG TABLET PO SCH (09:30)
[2018-07-23] MEDS: GABAPENTIN 300 MG CAPSULE. PO SCH ×2 (09:31→13:16)
[2018-07-23] MEDS: CARVEDILOL 6.25 MG TABLET PO SCH (09:32)
[2018-07-23] MEDS: DULoxetine HCL 60 MG CAPSULE.DR PO SCH (09:32)
[2018-07-23] MEDS: ARIPiprazole 5 MG TABLET PO SCH (09:32)
[2018-07-23] MEDS: MULTIVITAMIN with MINERAL TABLET. PO SCH (09:33)
[2018-07-23] MEDS: busPIRone 10 MG TABLET. PO SCH ×2 (09:33→13:16)
[2018-07-23] MEDS: LISINOPRIL 20 MG TABLET PO SCH (09:37)
[2018-07-23] MEDS: DOCUSATE SODIUM 100 MG CAPSULE PO SCH (09:37)
[2018-07-23] MEDS: CETIRIZINE HCL 10 MG TABLET PO SCH (09:38)
[2018-07-23] MEDS: TAMSULOSIN 0.4 MG CAP.ER.24H. PO SCH (09:38)
[2018-07-23] MEDS: CITALOPRAM 20 MG TABLET. PO SCH (09:38)
[2018-07-23] MEDS: PSYLLIUM SEED (WITH SUGAR) PACKET. PO SCH (09:40)
[2018-07-23] MEDS: INSULIN LISPRO 300 UNITS/3 ML INSULN.PEN. SQ SCH ×2 (09:44→13:15)
--- NOTE | 2018-07-23 10:18 | DS ---
DATE OF DISCHARGE: 07/23/2018 HOSPITAL COURSE: The patient is resting, slightly propped up in bed, eating his breakfast comfortably, in no apparent distress. On questioning him, he denied any complaint. Nursing staff did not voice any concern. He apparently was evaluated by physical therapy and he ambulates with a cane. When he came, he was admitted with acute kidney injury that has steadily improved, in fact, his creatinine came down from 3.2-1.2 and therefore, the decision was made to discharge him back to [facility]. PHYSICAL EXAMINATION: GENERAL: When I saw him today, he looked well, slightly pale, no jaundice, cyanosis, or thyromegaly. No jugular venous distention. No limb edema. VITAL SIGNS: His heart rate was 73, blood pressure was 157/80, temperature was 97.5, respiratory rate was 18 and oxygen saturation was 97%. HEENT: Examination of the head, eyes, ears, nose and throat showed normocephalic, atraumatic. NECK: Supple. HEART: Showed normal first and second heart sounds with no gallop, rub or murmur. CHEST: Clear to auscultation. No crepitation or rhonchi. ABDOMEN: Distended, soft, nontender. No guarding or rigidity. No organomegaly. Hernial orifices are intact and bowel sounds normal. NEUROLOGIC: He was awake, alert, responding appropriately. Cranial nerves are intact. He moves extremities without difficulty, ambulates with a cane. ] His intake over the last 24 hours was 1499, output was 1950. LABORATORY DATA: As of this morning, his white cell count was 2400, hemoglobin 11.4, hematocrit 34.9, MCV 94, and platelet count of 65,000. His chemistry showed a serum sodium 141, potassium 4.8, chloride 105, bicarbonate 30, anion gap of 6, BUN 17, creatinine 1.2, estimated GFR was 63 mL per minute. His glucose was 236, calcium was 9.1. Ammonia was only 19. His prothrombin time was 10.9, INR 1.1. Urinalysis was negative for nitrite, leukocyte esterase. There were a few bacteria. His toxic screen was positive for opiates. DISCHARGE MEDICATIONS: He was discharged back to [facility] to continue on Tylenol 650 mg every 4 hours, amitriptyline 150 mg at bedtime, apremilast for Otezla 30 mg p.o. b.i.d., aripiprazole 2.5 mg daily, atorvastatin calcium for Lipitor 40 mg at bedtime, baclofen 10 mg at bedtime, buspirone 10 mg 3 times a day, calcipotriene for Dovonex 60 grams cream apply topically twice a day, carvedilol 6.25 mg twice a day with meals, cranberry fruit concentrate 450 mg daily, diclofenac sodium for Voltaren gel 1 gram topically every 8 hours p.r.n., Colace 200 mg twice a day, duloxetine 60 mg daily, citalopram oxalate 20 mg once a day, fexofenadine 180 mg once a day, Flonase 2 sprays to each nostril daily, gabapentin 900 mg 3 times a day, ____ 500 mg p.o. b.i.d., guaifenesin for Mucinex 1200 mg twice a day, hydrocortisone cream apply topically twice a day. He is on NovoLog insulin as insulin sliding scale before meals, NovoLog FlexPen 20 units before meals scheduled, and insulin detemir 70 units twice a day; lisinopril 40 mg once a day, lorazepam 0.5 mg twice a day, Amitiza 24 mcg daily, metformin 1000 mg twice a day, multivitamin 1 tablet once a day, ondansetron 4 mg once a day, oxycodone hydrochloride 15 mg twice a day as needed, and OxyContin 30 mg at bedtime. He is on Senna S 1 tablet once a day, Psyllium Husks for Metamucil 3.4 grams powder packet 1 packet twice a day, and tamsulosin 0.4 mg twice a day, trazodone 300 mg at bedtime and trazodone 300 mg as needed. DISCONTINUED MEDICATIONS: I discontinued his cetirizine, hydrochlorothiazide, lisinopril, metformin, and potassium. FINAL DISCHARGE DIAGNOSES: Acute kidney injury, resolved. His creatinine came down from 3.2-1.2. Other medical problems include hypertension, well controlled; type 2 diabetes mellitus, reasonably controlled; nephrolithiasis, dementia, has also psoriasis. DEONNA ARCE MD DR: DERIC/perfecto JOB#: [id number] / [id number]
[2018-07-23 11:00] VITALS: BP 152/80
[2018-07-23 11:05] VITALS: BP 152/80
--- NOTE | 2018-08-21 09:15 | EKG ---
[facility] [address] [place] [address] Test Date: 2018-07-21 Test Time: 10:13:03 Pat Name: VIKASH HUNTER Department: Room: 125 A Gender: Manager Shift: : 1965 Requested By: DEONNA ARCE Order Number: [id number] Reading MD: Cody Orozco Measurements Intervals [place] Rate: P: NC: QRS: QRSD: T: QT: QTc: Interpretive Statements Compared to ECG 01/02/2017 16:48:54 NO SIGNIFICANT CHANGES Electronically Signed On 08-21-2018 10:10:10 ARRESTING GEAR OPERATOR by Cody Orozco
== END 2018-07-23 14:52 | DRG 682 ==
LOC: ER 03:52 → 1 SOUTH 04:55
PROVIDERS: ADMIT Internal Medicine; ATTEND Internal Medicine
DX: N17.9 Acute kidney failure, unspecified (principal); G93.41 Metabolic encephalopathy; N18.9 Chronic kidney disease, unspecified; E11.22 Type 2 diabetes mellitus with diabetic chronic kidney disease; I12.9 Hypertensive chronic kidney disease with stage 1 through stage 4 chronic kidney disease, or unspecified chronic kidney disease; E11.42 Type 2 diabetes mellitus with diabetic polyneuropathy; E86.0 Dehydration; F03.90 Unspecified dementia, unspecified severity, without behavioral disturbance, psychotic disturbance, mood disturbance, and anxiety; J45.909 Unspecified asthma, uncomplicated; L40.9 Psoriasis, unspecified; N20.0 Calculus of kidney; Z87.442 Personal history of urinary calculi; F32.9 Major depressive disorder, single episode, unspecified; F41.9 Anxiety disorder, unspecified; Z88.8 Allergy status to other drugs, medicaments and biological substances; Z79.899 Other long term (current) drug therapy
CPT/HCPCS: 36415; 70450; 71045; 80048; 80053; 80076; 80307; 81001; 82140; 82947; 85025; 85027; 85610; 85651; 86705; 86709; 86803; 87040; 87340; 87641; 93005; 96365; J1815; J7120; P9612; Q0162; 97116; 97530; 99285-25

== ENCOUNTER → 2018-11-22 | Outpatient (CLI) | payer MEDICARE, OTHER ==
[~2018-11-22] MED LIST changes: +ACET325T9 PO; +APRE30TA2 PO; +ARIP2TAB35 PO; +ATOR40TA PO; +BUSP10TA PO; +CALC60CR2 TP; +CETI10TA22 PO; +CRAN450C PO; +DICL100G18 TP; +DOCU-109 PO; +DULO60CA6 PO; +FEXO180T16 PO; +FLUT9.9S NS; +GABA-586 PO; +GABA600T7 PO; +GABA800T5 PO; +GUAI12003 PO; +HYDR-2145 PO; +HYDR453. TP; +INSU100V13 SQ; +LORA-254 PO; +LUBI24CA7 PO; +MULT1TAB52 PO; +ONDA4TAB7 PO; +OXYC30TA PO; +POTA20TA82 PO; +PSYL3.4P PO; +SENN-161 PO; +TAMS0.4C97 PO
--- NOTE | 2018-11-22 16:09 | RAD ---
AP view of the abdomen Clinical indications: Kidney stone. FINDINGS: No radiopaque renal stone is evident. There is a small calcification within the right side of the anatomic pelvis at the level of the ischial spine. This could represent a distal ureteral stone or a calcified phlebolith. This measures 2 mm in size. There is mild diffuse air-filled dilatation of the colon down into the rectosigmoid region. No small bowel dilatation is evident. The osseous structures are intact. IMPRESSION: 2 mm calcification of the right side of the anatomic pelvis. Electronically signed by: Mainor Kendrick MD (11/22/2018 4:06 PM) [id number]
--- NOTE | 2018-11-22 16:21 | RAD ---
Examination: Ultrasound kidneys HISTORY: History of calculus COMPARISON: None available. FINDINGS: The right kidney measures 12.0 x 6.8 x 5.9 cm the left kidney measures 11.9 x 5.1 x 5.0 cm. Urinary bladder jets identified. No evidence of hydronephrosis identified. IMPRESSION: Unremarkable exam. Electronically signed by: Wyatt Poe MD (11/22/2018 4:18 PM) [place] [id number]
== END | disposition home or self-care (01) ==
LOC: US 13:23
PROVIDERS: ATTEND Internal Medicine
DX: K59.39 Other megacolon (principal); N20.0 Calculus of kidney
CPT/HCPCS: 74018; 76770

== ENCOUNTER 2019-10-24 10:10 | Emergency (ER) | payer MEDICARE, OTHER ==
[~2019-10-24] VITALS: Ht 175.3 cm; Wt 95.9 kg
[~2019-10-24 10:10] MED LIST changes: -CETI10TA22 PO; +CETI10TA24 PO; -OXYC30TA PO; +OXYC30TA3 PO; +POTA20TA4 PO; -POTA20TA82 PO
[2019-10-24] MEDS ORDERED: IV NORMAL SALINE 1,000ML 1,000 ML IV ONE (10:15)
[2019-10-24 10:35] LABS: BASO % 0 % (0-3); EOS # 0.1 x10^3/uL (0.0-0.7); EOS % 2 % (0-3); HEMOGLOBIN 12.8 g/dL (13.0-17.5); LYMPH # 0.6 x10^3/uL (1.0-4.8); LYMPH % 12 % (24-48); MEAN CORPUSCULAR HEMOGLOBIN 29 pg (25-35); MEAN CORPUSCULAR HGB CONC 32 g/dL (31-37); MEAN CORPUSCULAR VOLUME 92 fL (79-100); MONO # 0.2 x10^3/uL (0.0-1.1); MONO % 5 % (0-9); NEUT % 81 % (31-73); PLATELET COUNT 68 x10^3/uL (140-400); RED BLOOD COUNT 4.36 x10^6/uL (4.30-5.70); RED CELL DISTRIBUTION WIDTH 17.2 % (11.5-14.5); WHITE BLOOD COUNT 4.9 x10^3/uL (4.0-11.0)
[2019-10-24 10:42] LABS: CALCIUM 9.6 mg/dL (8.5-10.1); CREATININE 1.3 mg/dL (0.7-1.3); GFR 57.1; POTASSIUM 5.1 mmol/L (3.5-5.1)
[2019-10-24 10:47] LABS: ALBUMIN 3.2 g/dL (3.4-5.0); ALBUMIN/GLOBULIN RATIO 0.9 (1.0-1.7); TOTAL BILIRUBIN 0.9 mg/dL (0.2-1.0); TOTAL PROTEIN 6.9 g/dL (6.4-8.2)
--- NOTE | 2019-10-24 10:50 | RAD ---
CT HEAD WO CONTRAST Date: 10/24/2019 10:14 AM Clinical Indication: Fall with head laceration, pain Comparison: None. Technique: 5 mm axial tomographic images were obtained of the head without contrast. These were viewed on brain and bone windows. One or more of the following dose reduction techniques were utilized: Automated exposure control (AEC), Adjustment of mA and/or kV according to patient size, Use of iterative reconstruction technique such as ASiR, CT scan done according to ALARA and image gently/image wisely Findings: The brain parenchyma is normal in attenuation. No intra- or extra-axial mass or fluid collection. No acute hemorrhage. The ventricles are normal in size, shape, and morphology. The briscoe-white matter junction is normal. The subarachnoid cisterns are patent. Right maxillary sinus mucus retention cyst. The visualized portions of the orbits and globes are normal. The mastoid air cells are clear. The housing case manager topogram shows no lytic lesion or fracture. Impression: No acute intracranial process. Electronically signed by: Alexis Sanchez MD (10/24/2019 10:48 AM) [id number]
--- NOTE | 2019-10-24 11:04 | PHYS DOC ---
Past History Past Medical History: Arthritis, Diabetes, Fibromyalgia, Hypertension Past Surgical History: Tonsillectomy Alcohol Use: Rarely Drug Use: None General Adult EDM: Chief Complaint: MULTIPLE TRAUMA/FALL HPI: HPI: 54-year-old male presents via EMS after fall. The [place] the [place] office [place] when his right leg "just gave out" and he fell to the ground. He did strike the back of his head on the ground and sustained a lacer ation. Patient was not knocked unconscious. He has not had any vomiting. He denies headache at this time. The patient tells me he has been a 10-year history of sudden onset right leg weakness. It has caused him to fall multiple times in the past. There are no new injuries or new symptoms other than his scalp laceration. He has been feeling well lately otherwise. Denies fever chills. Review of Systems: Review of Systems: Constitutional: Denies fever or chills Eyes: Denies change in visual acuity HENT: Denies nasal congestion or sore throat Respiratory: Denies cough or shortness of breath Cardiovascular: Denies chest pain or edema GI: Denies abdominal pain, nausea, vomiting, bloody stools or diarrhea : Denies dysuria Musculoskeletal: Denies back pain or joint pain Integument: Scalp laceration Neurologic: Denies headache, focal weakness or sensory changes Endocrine: Denies polyuria or polydipsia Lymphatic: Denies swollen glands Psychiatric: Denies depression or anxiety Heart Score: Risk Factors: Risk Factors: DM, Current or recent (<one month) smoker, HTN, HLP, family history of CAD, obesity. Risk Scores: Score 0 - 3: 2.5% MACE over next 6 weeks - Discharge Home Score 4 - 6: 20.3% MACE over next 6 weeks - Admit for Clinical Observation Score 7 - 10: 72.7% MACE over next 6 weeks - Early Invasive Strategies Current Medications: Current Meds: Current Medications Medications (Trade) Dose Ordered Sig/Carlos Eduardo Start Time Stop Time Status Last Admin Dose Admin Sodium Chloride 1,000 ml @ 1,000 mls/hr 1X ONCE 10/24/19 10:15 10/24/19 11:14 Allergies: Allergies: Allergies Coded Allergies Type Severity Reaction Last Updated Verified Iodine and Iodide Containing Produc Allergy Intermediate rash 08/24/16 Yes povidone-iodine Allergy Intermediate rash 08/24/16 Yes soap Allergy Intermediate rash 08/24/16 Yes Physical Exam: PE: Constitutional: Well developed, well nourished, no acute distress, non-toxic appearance. [] HENT: Normocephalic, atraumatic, bilateral external ears normal, oropharynx moist, no oral exudates, nose normal. [] Eyes: PERRLA, EOMI, conjunctiva normal, no discharge. [] Neck: Normal range of motion, no tenderness, supple, no stridor. [] Cardiovascular:Heart rate regular rhythm, no murmur [] Lungs & Thorax: Bilateral breath sounds clear to auscultation [] Abdomen: Bowel sounds normal, soft, no tenderness, no masses, no pulsatile masses. [] Skin: 1.5 cm L-shaped laceration of the occiput [] Back: No tenderness, no CVA tenderness. [] Extremities: No tenderness, no cyanosis, no clubbing, ROM intact, no edema. [] Neurologic: Alert and oriented X 3, normal motor function, normal sensory function, no focal deficits noted. [] Psychologic: Affect normal, judgement normal, mood normal. [] Current Patient Data: Labs: Laboratory Tests Test 10/24/19 10:20 White Blood Count 4.9 x10^3/uL (4.0-11.0) Red Blood Count 4.36 x10^6/uL (4.30-5.70) Hemoglobin 12.8 g/dL (13.0-17.5) L Hematocrit 40.0 % (39.0-53.0) Mean Corpuscular Volume 92 fL (79-100) Mean Corpuscular Hemoglobin 29 pg (25-35) Mean Corpuscular Hemoglobin Concent 32 g/dL (31-37) Red Cell Distribution Width 17.2 % (11.5-14.5) H Platelet Count 68 x10^3/uL (140-400) L Neutrophils (%) (Auto) 81 % (31-73) H Lymphocytes (%) (Auto) 12 % (24-48) L Monocytes (%) (Auto) 5 % (0-9) Eosinophils (%) (Auto) 2 % (0-3) Basophils (%) (Auto) 0 % (0-3) Neutrophils # (Auto) 4.0 x10^3uL (1.8-7.7) Lymphocytes # (Auto) 0.6 x10^3/uL (1.0-4.8) L Monocytes # (Auto) 0.2 x10^3/uL (0.0-1.1) Eosinophils # (Auto) 0.1 x10^3/uL (0.0-0.7) Basophils # (Auto) 0.0 x10^3/uL (0.0-0.2) Sodium Level 141 mmol/L (136-145) Potassium Level 5.1 mmol/L (3.5-5.1) Chloride Level 103 mmol/L (98-107) Carbon Dioxide Level 27 mmol/L (21-32) Anion Gap 11 (6-14) Blood Urea Nitrogen 16 mg/dL (8-26) Creatinine 1.3 mg/dL (0.7-1.3) Estimated GFR (Cockcroft-Gault) 57.1 BUN/Creatinine Ratio 12 (6-20) Glucose Level 129 mg/dL (70-99) H Calcium Level 9.6 mg/dL (8.5-10.1) Total Bilirubin 0.9 mg/dL (0.2-1.0) Aspartate Amino Transferase (AST) 40 U/L (15-37) H Alanine Aminotransferase (ALT) 38 U/L (16-63) Alkaline Phosphatase 129 U/L (46-116) H Total Protein 6.9 g/dL (6.4-8.2) Albumin 3.2 g/dL (3.4-5.0) L Albumin/Globulin Ratio 0.9 (1.0-1.7) L Vital Signs: Vital Signs Date Time Temp Pulse Resp B/P (MAP) Pulse Ox O2 Delivery O2 Flow Rate FiO2 10/24/19 10:10 77 20 146/70 (95) 98 Room Air EKG: EKG: [] Radiology/Procedures: Radiology/Procedures: [] Impressions: CT HEAD WO CONTRAST Date: 10/24/2019 10:14 AM Clinical Indication: Fall with head laceration, pain Comparison: None. Technique: 5 mm axial tomographic images were obtained of the head without contrast. These were viewed on brain and bone windows. One or more of the following dose reduction techniques were utilized: Automated exposure control (AEC), Adjustment of mA and/or kV according to patient size, Use of iterative reconstruction technique such as ASiR, CT scan done according to ALARA and image gently/image wisely Findings: The brain parenchyma is normal in attenuation. No intra- or extra-axial mass or fluid collection. No acute hemorrhage. The ventricles are normal in size, shape, and morphology. The briscoe-white matter junction is normal. The subarachnoid cisterns are patent. Right maxillary sinus mucus retention cyst. The visualized portions of the orbits and globes are normal. The mastoid air cells are clear. The machine stitcher topogram shows no lytic lesion or fracture. Impression: No acute intracranial process. Electronically signed by: Jameel Sanchez MD (10/24/2019 10:48 AM) [id number] DICTATED AND SIGNED BY: JAMEEL SANCHEZ MD DATE: 10/24/19 1048 CC: JULIUS MANSFIELD DO; RODRI JOY MD ~ Course & Med Decision Making: Course & Med Decision Making Pertinent Labs and Imaging studies reviewed. (See chart for details) The patient's labs are unremarkable. His CT of the head is unremarkable. I have repaired his laceration. See note below for more details. The patient is stable for discharge at this time. [] Dragon Disclaimer: Dragon Disclaimer: This electronic medical record was generated, in whole or in part, using a voice recognition dictation system. Laceration Repair Lac Repair Indication: [] 1.5 cm L-shaped laceration of the occipital scalp. Procedure: I obtained verbal consent from the patient for staple repair of his scalp laceration. Wound was thoroughly irrigated with normal saline under pressure. No foreign bodies were found. No anesthesia was used. I repaired the wound with 3 skin rickey. The skin was well approximated. Bleeding was controlled. Total repaired wound length: 1.5 cm Other Items: None The patient tolerated the procedure well Complications: None Departure Departure: Impression: Primary Impression: Fall on concrete Additional Impression: Laceration of scalp without complication Qualified Codes: S01.01XA - Laceration without foreign body of scalp, initial encounter Disposition: HOME, SELF-CARE Condition: STABLE Referrals: RODRI JOY MD (PCP) Patient Instructions: Staple Wound Closure, [id number] JULIUS MANSFIELD DO October 24, 2019 11:03
[2019-10-24 11:54] VITALS: BP 139/52
== END 2019-10-24 12:15 | disposition home or self-care (01) ==
LOC: ER 10:10
DX: S01.01XA Laceration without foreign body of scalp, initial encounter (principal); E11.9 Type 2 diabetes mellitus without complications; I10 Essential (primary) hypertension; Z91.041 Radiographic dye allergy status; Z88.8 Allergy status to other drugs, medicaments and biological substances; W18.39XA Other fall on same level, initial encounter; Y93.01 Activity, walking, marching and hiking; Y92.89 Other specified places as the place of occurrence of the external cause; Y99.8 Other external cause status
CPT/HCPCS: 12001; 36415; 70450; 80053; 85025; 99284-25; J7030

== ENCOUNTER 2019-12-31 18:14 | Emergency (ER) | payer MEDICARE, OTHER ==
[~2019-12-31] VITALS: Ht 175.3 cm; Wt 107.8 kg
[~2019-12-31 18:14] MED LIST changes: -GRIS500T5 PO; +GRIS500T6 PO; +MULT-445 PO; -MULT1TAB52 PO
--- NOTE | 2019-12-31 18:24 | PHYS DOC ---
Past History Past Medical History: Arthritis, Diabetes, Fibromyalgia, Hypertension Past Surgical History: Tonsillectomy Alcohol Use: Rarely Drug Use: None General Adult EDM: Chief Complaint: ABDOMINAL PAIN HPI: HPI: 54-year-old male with significant history of hypertension, diabetes mellitus, neuropathy, who presents for evaluation of 3 weeks of gradually increasing diffuse abdominal distention. No nausea, vomiting, or diarrhea. No chest pain or dyspnea. No prior history of liver disease or hepatitis. Reports prior seldom alcohol use. No prior abdominal surgeries. No aggravating or alleviating factors. Review of Systems: Review of Systems: Gen: No fever, chills. Eyes: No blurred vision, diplopia. ENT: No nasal congestion, sore throat. CV: No CP, palpitations. Resp. No SOB, cough. GI: No N/V. Reports abdominal pain, distention. : No dysuria, hematuria. Neuro: No LYNN, dizziness MSK: No myalgia, arthralgia Skin: No acute rash or lesion. Heart Score: Risk Factors: Risk Factors: DM, Current or recent (<one month) smoker, HTN, HLP, family history of CAD, obesity. Risk Scores: Score 0 - 3: 2.5% MACE over next 6 weeks - Discharge Home Score 4 - 6: 20.3% MACE over next 6 weeks - Admit for Clinical Observation Score 7 - 10: 72.7% MACE over next 6 weeks - Early Invasive Strategies Allergies: Allergies: Allergies Coded Allergies Type Severity Reaction Last Updated Verified Iodine and Iodide Containing Produc Allergy Intermediate rash 12/31/19 Yes povidone-iodine Allergy Intermediate rash 12/31/19 Yes soap Allergy Intermediate rash 12/31/19 Yes Physical Exam: PE: Gen: NAD. Well nourished. Head: NC/AT. Eyes: No scleral icterus. No conjunctival injection. ENT: MMM. Posterior OP clear. Neck: Supple. NT. CV: RRR. Peripheral pulses intact. Resp: CTAB. Abd: Soft. Diffuse abdominal distention. Mild diffuse tenderness without rebound, guarding, or rigidity. MSK: No peripheral cyanosis. No edema. Neuro: Awake and alert. Skin. Warm. Dry. Psych: Appropriate mood & affect. EKG: EKG: [] Radiology/Procedures: Radiology/Procedures: [] Impressions: Linear opacities at the lung bases which can be seen with atelectasis. Moderate calcific atherosclerosis without abdominal aortic aneurysm. Moderate fat-containing bilateral inguinal hernia. Moderate to large amount of free fluid within the abdomen and pelvis. Nodular hepatic contour. Pancreas grossly unremarkable given limitation of noncontrast imaging. Spleen is enlarged. 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 There is 2 mm calcification left kidney which could be from a nonobstructive stone. No hydronephrosis. There is lobulated appearance of the kidneys bilaterally. Urinary bladder partially distended. Edema within the mesenteric fat. Appendix partially seen in the right lower quadrant within the area of ascites. Edema within soft tissues. Degenerative changes of the spine and hips. Multilevel central canal and neural foraminal stenosis. There are some regions of osseous demineralization. IMPRESSION: * Interval development of moderate to large amount of free fluid within the abdomen and pelvis. * Nodular hepatic contour. Would correlate for history of chronic hepatic disease such as cirrhosis. There is also enlargement of the spleen which can be associated with portal hypertension. * Lobulated contour of the bilateral kidneys. Evaluation for an underlying renal lesion is limited secondary to noncontrast exam. Course & Med Decision Making: Course & Med Decision Making Pertinent Labs and Imaging studies reviewed. (See chart for details) In summary, 54-year-old male who presents for evaluation of diffuse abdominal distention, gradual onset over the last 3 weeks or so. No significant abdominal pain or other GI/ symptoms per se. Benign abdominal exam. No peritoneal signs. Lab work is largely unremarkable. No significant transaminitis. However, CT abdomen/pelvis does reveal significant ascites with concern for cirrhosis. The patient has no reported significant risk factors such as hepatitis, alcoholism, etc. There are no clinical signs or symptoms concerning for spontaneous bacterial peritonitis. He will be discharged home with outpatient gastroenterology follow-up. No indication for urgent diagnostic or therapeutic paracentesis. Return precautions given. Dragon Disclaimer: Dragon Disclaimer: This electronic medical record was generated, in whole or in part, using a voice recognition dictation system. Departure Departure: Impression: Primary Impression: Liver disease Additional Impression: Ascites Disposition: HOME/RESIDENCE PRIOR TO ADM Condition: STABLE Referrals: RODRI JOY MD (PCP) [facility] GASTROINTESTINAL CONS Patient Instructions: Ascites, Liver Disease Diet Justification of Admission: Justification of Admission: Justification of Admission Dx: N/A CHET LARES DO Dec 31, 2019 18:24
[2019-12-31 18:52] LABS: BASO % 1 % (0-3); EOS # 0.2 x10^3/uL (0.0-0.7); EOS % 4 % (0-3); HEMATOCRIT 35.8 % (39.0-53.0); HEMOGLOBIN 11.6 g/dL (13.0-17.5); LYMPH % 21 % (24-48); MEAN CORPUSCULAR HEMOGLOBIN 30 pg (25-35); MEAN CORPUSCULAR HGB CONC 33 g/dL (31-37); MEAN CORPUSCULAR VOLUME 92 fL (79-100); MONO # 0.3 x10^3/uL (0.0-1.1); MONO % 7 % (0-9); NEUT # 3.2 x10^3uL (1.8-7.7); NEUT % 67 % (31-73); PLATELET COUNT 77 x10^3/uL (140-400); RED BLOOD COUNT 3.89 x10^6/uL (4.30-5.70); RED CELL DISTRIBUTION WIDTH 16.4 % (11.5-14.5); WHITE BLOOD COUNT 4.7 x10^3/uL (4.0-11.0)
[2019-12-31 18:55] LABS: CALCIUM 8.5 mg/dL (8.5-10.1); CREATININE 1.1 mg/dL (0.7-1.3); GFR 69.2; POTASSIUM 3.7 mmol/L (3.5-5.1)
--- NOTE | 2019-12-31 18:57 | RAD ---
INDICATION: Reason: ABDOMINAL DISTENSION, UPPER ABD PAIN X 2-3 WEEKS / Spl. Instructions: ALLERGIC TO IODINE / History: COMPARISON: December 2016 TECHNIQUE: Axial CT images obtained through the abdomen and pelvis without contrast. Limited assessment of solid organ structures and vasculature secondary to lack of intravenous contrast.. One or more of the following individualized dose reduction techniques were utilized for this examination: 1. Automated exposure control; 2. Adjustment of the mA and/or kV according to patient size; 3. Use of iterative reconstruction technique. FINDINGS: Linear opacities at the lung bases which can be seen with atelectasis. Moderate calcific atherosclerosis without abdominal aortic aneurysm. Moderate fat-containing bilateral inguinal hernia. Moderate to large amount of free fluid within the abdomen and pelvis. Nodular hepatic contour. Pancreas grossly unremarkable given limitation of noncontrast imaging. Spleen is enlarged. 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 There is 2 mm calcification left kidney which could be from a nonobstructive stone. No hydronephrosis. There is lobulated appearance of the kidneys bilaterally. Urinary bladder partially distended. Edema within the mesenteric fat. Appendix partially seen in the right lower quadrant within the area of ascites. Edema within soft tissues. Degenerative changes of the spine and hips. Multilevel central canal and neural foraminal stenosis. There are some regions of osseous demineralization. IMPRESSION: * Interval development of moderate to large amount of free fluid within the abdomen and pelvis. * Nodular hepatic contour. Would correlate for history of chronic hepatic disease such as cirrhosis. There is also enlargement of the spleen which can be associated with portal hypertension. * Lobulated contour of the bilateral kidneys. Evaluation for an underlying renal lesion is limited secondary to noncontrast exam. Electronically signed by: Jeremy Sanchez MD (12/31/2019 6:55 PM) [id number]
[2019-12-31 19:01] LABS: ALBUMIN 2.7 g/dL (3.4-5.0); ALBUMIN/GLOBULIN RATIO 0.8 (1.0-1.7); MAGNESIUM 1.2 mg/dL (1.8-2.4); TOTAL BILIRUBIN 0.8 mg/dL (0.2-1.0); TOTAL PROTEIN 6.3 g/dL (6.4-8.2)
[2019-12-31] MEDS ORDERED: HYDROcodone/APAP 5/325MG 1 TAB TABLET PO ONE (21:15)
[2019-12-31 21:45] VITALS: BP 173/84
== END 2019-12-31 23:05 | disposition home or self-care (01) ==
LOC: ER 18:14
DX: K76.9 Liver disease, unspecified (principal); R18.8 Other ascites; M19.90 Unspecified osteoarthritis, unspecified site; E11.9 Type 2 diabetes mellitus without complications; M79.7 Fibromyalgia; I10 Essential (primary) hypertension; Z90.89 Acquired absence of other organs; Z91.040 Latex allergy status; Z88.8 Allergy status to other drugs, medicaments and biological substances
CPT/HCPCS: 36415; 74176; 80053; 83690; 83735; 85025; 85610; 85730; 99285

== ENCOUNTER → 2020-01-16 | Outpatient (CLI) | payer MEDICARE, OTHER ==
[2019-12-31 21:45] VITALS: BP 173/84
--- NOTE | 2020-01-16 17:31 | RAD ---
EXAM: CT Head without IV contrast INDICATION: Reason: FOLLOW UP SUBDURAL HEMATOMA / Spl. Instructions: / History: TECHNIQUE: Multi-detector row CT images were obtained of the head without the use of IV contrast. All CT scans performed at this facility utilize dose optimization techniques as appropriate to the exam, including the following: Automated exposure control and adjustment of the mA and/or KV according to patient size (this includes techniques or standardized protocols for targeted exams where dose is indication/reason for exam). COMPARISON: Noncontrast head CT 10/24/2019 FINDINGS: BRAIN PARENCHYMA: No evidence of acute intraparenchymal hemorrhage or infarct. No abnormal parenchymal density or mass. VENTRICLES & EXTRA-AXIAL SPACES: Ventricles are within normal limits. Basilar cisterns are patent. Bilateral mixed density, predominantly isodense subdural hemorrhages over the frontal lobes measuring 6 mm on the left and 5 mm on the right are newly apparent. ORBITS: Orbital contents are unremarkable. SINUSES: Visualized paranasal sinuses and mastoid air cells are clear. OSSEOUS & SOFT TISSUES: Calvarium and skull base are intact. IMPRESSION: Bilateral subdural hemorrhages measuring 6 mm on the left and 5 mm on the right. No mass effect or midline shift. Comparison with prior examinations demonstrating patient's known subdural hematomas could be helpful in assessing interval change. Electronically signed by: Gabby Alexander MD (01/16/2020 5:29 PM) [id number]
== END | disposition home or self-care (01) ==
LOC: CT 10:21
PROVIDERS: ATTEND Neurological Surgery
DX: S06.5X0D Traumatic subdural hemorrhage without loss of consciousness, subsequent encounter (principal); X58.XXXD Exposure to other specified factors, subsequent encounter
CPT/HCPCS: 70450

== ENCOUNTER 2020-03-15 14:18 | Observation (INO) | payer MEDICARE, OTHER ==
[~2020-03-15] VITALS: Ht 175.3 cm; Wt 101.2 kg
[~2020-03-15 14:18] MED LIST changes: -CETI10TA24 PO; +CETI10TA74 PO
--- NOTE | 2020-03-15 14:26 | PHYS DOC ---
Past History Past Medical History: Arthritis, Diabetes, Fibromyalgia, Hypertension Past Surgical History: Tonsillectomy Alcohol Use: Rarely Drug Use: None General Adult EDM: Chief Complaint: CHEST PAIN HPI: HPI: Patient is a 54-year-old male arrives via EMS with a chief complaint of chest pain. Approximate hour ago patient was eating started having chest pain described as sharp on left side that radiates to the neck and left arm. Patient states the pain is moderate in severity max and currently 0. Patient denies any associated symptoms such as shortness of breath, nausea, vomiting or dizziness. Patient denies any recent illnesses such as fevers chills cough, eating better after he received aspirin prior to arrival Review of Systems: Review of Systems: Constitutional: Denies fever or chills Eyes: Denies change in visual acuity HENT: Denies nasal congestion or sore throat Respiratory: Denies cough or shortness of breath Cardiovascular: Complains of chest pain and mild edema in his leg GI: Denies abdominal pain, nausea, vomiting, bloody stools or diarrhea : Denies dysuria Musculoskeletal: Denies back pain or joint pain Integument: Denies rash Neurologic: Denies headache, focal weakness or sensory changes Endocrine: Denies polyuria or polydipsia Lymphatic: Denies swollen glands Psychiatric: Denies depression or anxiety Heart Score: HEART Score for Chest Pain: HEART Score for Chest Pain Response (Comments) Value History Moderately Suspicious 1 ECG Nonspecific Repolarizatio 1 Age >45 - < 65 1 Risk Factors >3 Risk Factors or Hx CAD 2 Troponin < Normal Limit 0 Total 5 Risk Factors: Risk Factors: DM, Current or recent (<one month) smoker, HTN, HLP, family hist ory of CAD, obesity. Risk Scores: Score 0 - 3: 2.5% MACE over next 6 weeks - Discharge Home Score 4 - 6: 20.3% MACE over next 6 weeks - Admit for Clinical Observation Score 7 - 10: 72.7% MACE over next 6 weeks - Early Invasive Strategies Family History: Family History: Family history of coronary artery disease Allergies: Allergies: Allergies Coded Allergies Type Severity Reaction Last Updated Verified Iodine and Iodide Containing Produc Allergy Intermediate rash 12/31/19 Yes povidone-iodine Allergy Intermediate rash 12/31/19 Yes soap Allergy Intermediate rash 12/31/19 Yes Physical Exam: PE: Constitutional: Well developed, well nourished, no acute distress, non-toxic appearance. [] HENT: Normocephalic, atraumatic, bilateral external ears normal, no trismus nose normal. [] Eyes: PERRLA, EOMI, conjunctiva normal, no discharge. [] Neck: Normal range of motion, no tenderness, supple, no stridor. [] Cardiovascular:Heart rate regular rhythm, peripheral pulses intact, cap refill brisk Lungs & Thorax: Bilateral breath sounds clear, no respiratory distress Abdomen: Mildly distended without tenderness or guarding or rebound no pulsatile masses Skin: Warm, dry, no erythema, no rash. [] Back: No tenderness, no CVA tenderness. [] Extremities: Mild bilateral lower extremity edema, neurovascular intact distally Neurologic: Alert and oriented X 3, normal motor function, normal sensory fu nction, no focal deficits noted. [] Psychologic: Affect normal, judgement normal, mood normal. [] Current Patient Data: Labs: Laboratory Tests Test 03/15/20 14:33 White Blood Count 3.8 x10^3/uL Red Blood Count 4.21 x10^6/uL Hemoglobin 12.3 g/dL Hematocrit 38.4 % Mean Corpuscular Volume 91 fL Mean Corpuscular Hemoglobin 29 pg Mean Corpuscular Hemoglobin Concent 32 g/dL Red Cell Distribution Width 16.4 % Platelet Count 76 x10^3/uL Neutrophils (%) (Auto) 74 % Lymphocytes (%) (Auto) 16 % Monocytes (%) (Auto) 7 % Eosinophils (%) (Auto) 3 % Basophils (%) (Auto) 1 % Neutrophils # (Auto) 2.8 x10^3uL Lymphocytes # (Auto) 0.6 x10^3/uL Monocytes # (Auto) 0.3 x10^3/uL Eosinophils # (Auto) 0.1 x10^3/uL Basophils # (Auto) 0.0 x10^3/uL Platelet Estimate Decreased Polychromasia Present Anisocytosis Slight Ovalocytes Present Prothrombin Time 10.7 SEC Prothromb Time International Ratio 1.0 Activated Partial Thromboplast Time 25 SEC Sodium Level 139 mmol/L Potassium Level 4.0 mmol/L Chloride Level 102 mmol/L Carbon Dioxide Level 32 mmol/L Anion Gap 5 Blood Urea Nitrogen 11 mg/dL Creatinine 1.2 mg/dL Estimated GFR (Cockcroft-Gault) 62.6 BUN/Creatinine Ratio 9 Glucose Level 191 mg/dL Calcium Level 9.0 mg/dL Total Bilirubin 0.6 mg/dL Aspartate Amino Transf (AST/SGOT) 60 U/L Alanine Aminotransferase (ALT/SGPT) 59 U/L Alkaline Phosphatase 252 U/L Troponin I Quantitative < 0.017 ng/mL [id number] Natriuretic Peptide 344 pg/mL Total Protein 6.3 g/dL Albumin 2.7 g/dL Albumin/Globulin Ratio 0.8 Lipase 86 U/L Vital Signs: Vital Signs Date Time Temp Pulse Resp B/P (MAP) Pulse Ox O2 Delivery O2 Flow Rate FiO2 03/15/20 15:59 67 16 106/66 (79) 98 Room Air 03/15/20 14:22 98.2 EKG: EKG: [] EKG interpreted by me normal sinus rhythm with rate of 60 normal axis, normal intervals, nonspecific ST changes Radiology/Procedures: Radiology/Procedures: [][address] [address] IMAGING REPORT Signed PATIENT: VIKASH HUNTER ACCOUNT: [id number] : 1965 LOCATION: ER AGE: 54 SEX: M EXAM STATUS: REG ER ORD. PHYSICIAN: MEL CORRIGAN MD REASON: cp PROCEDURE: PORTABLE CHEST 1V Chest AP portable 03/15/2020. Reason for exam: Chest pain. Comparison is made with a study of 07/21/2018. Depth of inspiration is shallow. No new infiltrate or effusion is seen. Heart size is normal. IMPRESSION: Shallow inspiration. No acute findings. Electronically signed by: Luther Treviño Jr., MD (03/15/2020 3:38 PM) [facility] DICTATED AND SIGNED BY: LUTHER TREVIÑO Jr, MD DATE: 03/15/20 1538 CC: MEL CORRIGAN MD; JACQUES HAYS ~ Course & Med Decision Making: Course & Med Decision Making Pertinent Labs and Imaging studies reviewed. (See chart for details) [] 54-year-old male presents with chest pain. Heart score is 5. Rest of his work-up is reassuring. Patient need to be admitted for rule out IN. Discussed with Dr.gui who will admit Dragon Disclaimer: Khai Disclaimer: This electronic medical record was generated, in whole or in part, using a voice recognition dictation system. Departure Departure: Impression: Primary Impression: Chest pain Disposition: ADMITTED INPATIENT Admitting Physician: Sakshi Brown Condition: STABLE Referrals: JACQUES HAYS (PCP) Justification of Admission: Justification of Admission: Justification of Admission Dx: N/A MEL CORRIGAN MD Mar 15, 2020 14:26
--- NOTE | 2020-03-15 14:44 | EKG ---
[address] [address] Test Date: 2020-03-15 Test Time: 14:20:59 Pat Name: VIKASH HUNTER Department: Room: Gender: M Blindstitch Hemmer: OXANA : 1965 Requested By: MEL CORRIGAN Order Number: [id number] Reading MD: Carlos Alberto Prado MD Measurements Intervals [place] Rate: 60 P: 17 NC: 168 QRS: -5 QRSD: 88 T: 34 QT: 468 QTc: 473 Interpretive Statements SINUS RHYTHM Electronically Signed On 03-16-2020 12:57:24 CDT by Carlos Alberto Prado MD
[2020-03-15 14:55] LABS: BASO % 1 % (0-3); EOS # 0.1 x10^3/uL (0.0-0.7); EOS % 3 % (0-3); HEMATOCRIT 38.4 % (39.0-53.0); HEMOGLOBIN 12.3 g/dL (13.0-17.5); LYMPH # 0.6 x10^3/uL (1.0-4.8); LYMPH % 16 % (24-48); MEAN CORPUSCULAR HEMOGLOBIN 29 pg (25-35); MEAN CORPUSCULAR HGB CONC 32 g/dL (31-37); MEAN CORPUSCULAR VOLUME 91 fL (79-100); MONO # 0.3 x10^3/uL (0.0-1.1); MONO % 7 % (0-9); NEUT # 2.8 x10^3uL (1.8-7.7); NEUT % 74 % (31-73); PLATELET COUNT 76 x10^3/uL (140-400); RED BLOOD COUNT 4.21 x10^6/uL (4.30-5.70); RED CELL DISTRIBUTION WIDTH 16.4 % (11.5-14.5); WHITE BLOOD COUNT 3.8 x10^3/uL (4.0-11.0)
[2020-03-15 15:00] LABS: CREATININE 1.2 mg/dL (0.7-1.3); GFR 62.6
[2020-03-15 15:12] LABS: ALBUMIN 2.7 g/dL (3.4-5.0); ALBUMIN/GLOBULIN RATIO 0.8 (1.0-1.7); TOTAL BILIRUBIN 0.6 mg/dL (0.2-1.0); TOTAL PROTEIN 6.3 g/dL (6.4-8.2)
[2020-03-15 15:18] LABS: PLT ESTIMATE DECREASED (ADEQUATE); POLYCHROMASIA PRESENT
[2020-03-15 15:19] LABS: ANISOCYTOSIS SLIGHT; OVALOCYTES PRESENT
--- NOTE | 2020-03-15 15:41 | RAD ---
Chest AP portable 03/15/2020. Reason for exam: Chest pain. Comparison is made with a study of 07/21/2018. Depth of inspiration is shallow. No new infiltrate or effusion is seen. Heart size is normal. IMPRESSION: Shallow inspiration. No acute findings. Electronically signed by: Ranulfo Treviño Jr., MD (03/15/2020 3:38 PM) [facility]
[2020-03-15] MEDS: ASPIRIN CHEWABLE 81 MG TABLET. PO SCH (16:30)
[2020-03-15] MEDS ORDERED: ONDANSETRON PF 4 MG/2 ML VIAL. IVP PRN (16:30)
[2020-03-15] MEDS: MORPHINE SULFATE 2 MG/ML DISP.SYRIN. IVP PRN ×2 (16:36→19:50)
--- NOTE | 2020-03-15 18:25 | NUR ---
PATIENT ARRIVED TO UNIT VIA EMS. PATIENT IS CALM AND COOPERATIVE. PTS VS OBTAINED AND ARE STABLE. PATIENT IF ORIENTED TO UNIT AND PROCEDURES. MARIO IS RESTING IN BED AT THIS TIME. WILL CONTINUE TO MONITOR.
[2020-03-15 18:43] VITALS: BP 161/70
[2020-03-15] MEDS ORDERED: OXYC10SY PO (20:50)
[2020-03-15] MEDS ORDERED: SPIR100T4 PO (20:50)
[2020-03-15] MEDS ORDERED: FERR325T14 PO (20:50)
[2020-03-15] MEDS ORDERED: PANT40TA6 PO (20:50)
[2020-03-15] MEDS ORDERED: MELA5TAB PO (20:50)
[2020-03-15] MEDS ORDERED: BUSP10TA PO (20:50)
[2020-03-15] MEDS ORDERED: DEXTROSE 50% 25 GM / 50ML DISP.SYRIN. IV PRN (21:00)
[2020-03-15] MEDS ORDERED: ACETAMINOPHEN 325 MG TABLET PO PRN (21:00)
[2020-03-15] MEDS: NON FORMULARY ITEM (Apremilast (Otezla) 30 MG) PO SCH (21:00)
[2020-03-15] MEDS ORDERED: MELATONIN 3 MG TABLET PO PRN (21:15)
[2020-03-15] MEDS ORDERED: traZODone 150 MG TABLET. PO SCH (21:30)
[2020-03-15] MEDS ORDERED: INSULIN GLARGINE SYRINGE. SQ SCH ×2 (22:00→23:00)
[2020-03-15] MEDS: busPIRone 10 MG TABLET. PO SCH (22:27)
[2020-03-15] MEDS: GABAPENTIN 300 MG CAPSULE. PO SCH (22:27)
[2020-03-15] MEDS: TAMSULOSIN 0.4 MG CAP.ER.24H. PO SCH (22:28)
[2020-03-15] MEDS: DOCUSATE SODIUM 100 MG CAPSULE PO SCH (22:28)
[2020-03-15 23:41] VITALS: BP 135/71
[2020-03-16] MEDS: oxyCODONE IR 5 MG TABLET PO PRN ×2 (01:29→08:31)
[2020-03-16 06:15] VITALS: BP 120/69
[2020-03-16] MEDS ORDERED: PANTOPRAZOLE 40 MG TABLET. PO SCH (07:30)
[2020-03-16] MEDS: GABAPENTIN 300 MG CAPSULE. PO SCH ×2 (08:00→13:37)
[2020-03-16] MEDS: ASPIRIN CHEWABLE 81 MG TABLET. PO SCH (08:00)
[2020-03-16] MEDS: INSULIN LISPRO 300 UNITS/3 ML VIAL. SQ SCH ×3 (08:00→17:25)
[2020-03-16] MEDS: CARVEDILOL 6.25 MG TABLET PO SCH ×2 (08:02→17:21)
[2020-03-16] MEDS: busPIRone 10 MG TABLET. PO SCH (08:03)
[2020-03-16] MEDS: DOCUSATE SODIUM 100 MG CAPSULE PO SCH (08:03)
[2020-03-16] MEDS: TAMSULOSIN 0.4 MG CAP.ER.24H. PO SCH (08:03)
[2020-03-16] MEDS: NON FORMULARY ITEM (Apremilast (Otezla) 30 MG) PO SCH (08:32)
[2020-03-16] MEDS ORDERED: MULTIVITAMIN with MINERAL TABLET. PO SCH (09:00)
[2020-03-16] MEDS ORDERED: FERROUS SULFATE 325 MG TABLET. PO SCH (09:00)
[2020-03-16] MEDS ORDERED: FLUTICASONE 50MCG/NASAL SPRAY 16GM BOTTLE. NS PRN (09:00)
[2020-03-16] MEDS ORDERED: ARIPiprazole 5 MG TABLET PO SCH (09:00)
[2020-03-16] MEDS ORDERED: SPIRONOLACTONE 25 MG TABLET PO SCH (09:00)
[2020-03-16] MEDS ORDERED: FLU VACC QS 2020-21(6MOS+)/PF 0.5 ML SYRINGE. VAX IM ONE (09:00)
[2020-03-16 10:26] VITALS: BP 112/64
[2020-03-16 15:25] VITALS: BP 120/70
[2020-03-16 17:21] VITALS: BP 120/70
--- NOTE | 2020-03-16 17:36 | HP ---
ADMIT DATE: HISTORY OF PRESENT ILLNESS: The patient is a 54-year-old male patient, a resident at [facility], who apparently was brought to the Emergency Room with complaint of chest pain that is retrosternal. He rated his pain as about 7-8/10 radiating to the left side of his neck and arm. The pain lasted about 1 hour. Denied any nausea or vomiting. Denied any shortness of breath or diaphoresis. He has never had something like this before, although he said that he has acid reflux. He was basically investigated in the Emergency Room and apparently has had an EKG, which showed that he was in sinus rhythm with a heart rate of 60 beats per minute, normal intervals, no ST segment elevation. His chest x-ray showed shallow inspiration. No acute finding and his first set of cardiac enzymes showed that his troponin was 0.024. He was admitted to do 2 more sets of cardiac enzymes, check his fasting lipid profile, and consult the system safety engineer. PAST MEDICAL HISTORY: Significant for type 2 diabetes mellitus, hypertension, fibromyalgia, rheumatoid arthritis, peripheral neuropathy, history of nephrolithiasis, benign prostatic hypertrophy, fatty liver, and questionable liver cirrhosis as he has multiple paracentesis. He also has morbid obesity, obstructive sleep apnea on CPAP, and history of gout. PAST SURGICAL HISTORY: Significant for bilateral cataract extraction, right rotator cuff repair x 2, colonoscopy, and multiple paracentesis. ALLERGIES: HE IS ALLERGIC TO BETADINE, IODINE AND IODINE CONTAINING PRODUCTS, AND POVIDONE IODINE SOAP. MEDICATIONS: He is currently on following medications: He is on Flomax 0.4 mg twice a day, ferrous sulfate 325 mg daily, carvedilol 6.25 mg twice a day, spironolactone 100 mg daily, oxycodone 30 mg extended release at bedtime, oxycodone 10 mg in 0.5 mL syringe 30 mg every 24 hours as needed, acetaminophen 325 mg every 4 hours, gabapentin 300 mg 3 capsules 3 times a day, trazodone 300 mg at bedtime, aripiprazole 2 mg, he takes 2.5 mg daily, buspirone 10 mg twice a day, Flonase 1-2 sprays to each nostril once a day, Colace 100 mg, he takes 2 capsules twice a day, Protonix 40 mg once a day, detemir insulin 70 units subcutaneously twice a day, multivitamin 1 tablet once a day, apremilast or Otezla 30 mg twice a day, melatonin 5 mg at bedtime. FAMILY HISTORY: He has 1 brother and 2 sisters older and 2 sisters younger. His oldest brother is 60 years old. He is still alive and has had coronary artery disease, treated with PCI and stent deployment. Older and younger sisters are healthy. His father at age of 58 because of myocardial infarction. Mother at the age of 60 because of ovarian cancer. SOCIAL HISTORY: He is , has 1 son. He never smoked. He drinks alcohol very occasionally. He does not use any drugs. He used to work at [employer]. He is a retired medically. He has been residing at [facility] for the last 3 years. REVIEW OF SYSTEMS: The patient denied any blurring of vision. He has had bilateral cataract extraction, but denied any glaucoma or macular degeneration. Does have sensorineural deafness. Denied any nosebleeds, stuffy nose, or postnasal drip. Denied any sore throat, sore tongue, toothache, hoarseness of voice, or difficulty swallowing. He said he lost weight unintentionally. He used to weigh 267 and his weight came down to almost 100. Now, he has gained about 10-20 pounds. Denied any nausea, vomiting, diarrhea, or constipation. Denied any hematemesis, melena, or hematochezia. Denied any dysuria, frequency, or hematuria. He did complain of chest pain that is retrosternal, radiating to the left side of the neck, rated as 7-8/10, but denied any other associated features like nausea, vomiting, shortness of breath, or diaphoresis. PHYSICAL EXAMINATION: GENERAL: On arrival to the Emergency Room, he looked pale, not jaundiced, cyanosis or thyromegaly. No jugular venous distention. No lower limb edema. VITAL SIGNS: His heart rate was 62, blood pressure 155/66, temperature was 98.2, respiratory rate was 16, and oxygen saturation was 99%. HEAD, EYES, EARS, NOSE, AND THROAT: Normocephalic, atraumatic. NECK: Supple. HEART: Showed normal first and second heart sounds. No gallop or murmur. CHEST: Clear to auscultation. No crepitation or rhonchi. ABDOMEN: Distended, soft with positive shifting dullness. No guarding or rigidity. No organomegaly. All hernial orifice intact. Bowel sounds normal. NEUROLOGIC: He is awake, alert, responding appropriately. All cranial nerves are intact. EXTREMITIES: He moves extremities without difficulty. He ambulates with a cane. LABORATORY DATA: His lab work on admission showed a white cell count of 3800, hemoglobin 12, hematocrit 38, MCV 91, and platelet count of 76,000. His prothrombin time was 10.7, INR 1, aPTT was 25. His chemistry showed a serum sodium 139, potassium 4, chloride 102, bicarbonate 32, anion gap of 5, BUN 11, creatinine 1.2, estimated GFR was 62 mL per minute. His glucose 191, calcium was 9. Total bilirubin and ALT normal. AST and alkaline phosphatase slightly elevated. His first troponin was less than 0.017. His beta natriuretic peptide was 344. Total protein was 6.3, albumin was 2.7. His lipase was 86. PLAN: The patient was admitted to do 2 more sets of cardiac enzyme and check his fasting lipid profile and consult the Cardiology team. DEONNA ARCE MD DR: DERIC/perfecto JOB#: [id number] / [id number]
--- NOTE | 2020-03-16 17:47 | NUR ---
Flu vaccine administered in R deltoid
--- NOTE | 2020-03-16 17:53 | DS ---
DATE OF DISCHARGE: HOSPITAL COURSE: The patient is a 54-year-old male patient who is a resident at [facility] and [facility], who was admitted through the Emergency Room with a complaint of chest pain that is retrosternal, radiating to the left side of the chest, rated as a 7/10 in severity, but denied any nausea or vomiting. Denied any diaphoresis or shortness of breath. He was sitting, watching TV when all this happened. The pain lasted almost an hour, relieved by morphine; has had an EKG done at the Emergency Room, which showed that he was in sinus rhythm at 60 beats per minute, no ST-segment elevation. He has 3 sets of cardiac enzymes; showed that his troponin was slightly elevated, but still within normal range at 0.017, 0.022 and 0.024. His fasting lipid profile showed his serum triglycerides were 55, total cholesterol 132, LDL was 92, VLDL was 11 and HDL was 29, the ratio of 4. In consultation with the Cardiology team, specifically after speaking with the nurse practitioner, a decision was made to discharge him back to [facility] and arrangement will be made for him to be seen as an outpatient at Dr. Prado's office for outpatient ischemic workup and echocardiography. When I saw him this afternoon, he looked well and was clearly in no apparent respiratory distress. He was pain-free. Denied any chest pain, nausea, vomiting or diaphoresis. PHYSICAL EXAMINATION: GENERAL: When I examined him, he looked pale, but no jaundice, cyanosis or thyromegaly. No jugular venous distention. No limb edema. VITAL SIGNS: His heart rate was 79, blood pressure was 120/70, temperature was 98, respiratory rate is 20, and oxygen saturation was 97% on room air. The rest of clinical exam is stable. His blood sugar is reasonably controlled. DISCHARGE MEDICATIONS: As his chest pain was atypical and acute myocardial infarction ruled out, the patient was discharged to be followed as an outpatient. He was discharged back to [facility] to continue acetaminophen 325 mg every 4 hours, Otezla 30 mg twice a day, aripiprazole for Abilify 2.5 mg daily, buspirone 10 mg twice a day, carvedilol 6.25 mg twice a day, Colace 2 capsules twice a day, ferrous sulfate 325 mg daily, Flonase 2 sprays to each nostril once a day, gabapentin 3 capsules 3 times a day, detemir insulin 70 units subcutaneously twice a day, melatonin 5 mg at bedtime, multivitamin 1 tablet once a day, oxycodone extended release 30 mg once a day, oxycodone 30 mg immediate release q. 24 hours, Protonix 40 mg daily, spironolactone 100 mg once a day, tamsulosin 0.4 mg twice a day and trazodone 300 mg at bedtime. FINAL DISCHARGE DIAGNOSES: The patient has multiple medical problems including: A. 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 He has also obstructive sleep apnea. The patient will be discharged back to [facility], would be seen at the Cardiology Clinic as an outpatient for outpatient ischemic workup. DEONNA ARCE MD DR: DERIC/perfecto JOB#: [id number] / [id number]
--- NOTE | 2020-03-16 18:51 | NUR ---
Pt d/c to [facility]. Pt escorted via wheelchair by [facility] staff to provided transportation with all his belongings. Discharge instructions and prescription provided to pt. Report given to FE Vogel.
== END 2020-03-16 18:55 ==
LOC: ER 14:18 → 1 SOUTH 16:25
PROVIDERS: ADMIT Internal Medicine; ATTEND Internal Medicine
DX: E11.42 Type 2 diabetes mellitus with diabetic polyneuropathy (principal); G47.33 Obstructive sleep apnea (adult) (pediatric); I10 Essential (primary) hypertension; K21.9 Gastro-esophageal reflux disease without esophagitis; K74.60 Unspecified cirrhosis of liver; K76.6 Portal hypertension; K75.81 Nonalcoholic steatohepatitis (NASH); M06.9 Rheumatoid arthritis, unspecified; Z23 Encounter for immunization; Z79.899 Other long term (current) drug therapy
CPT/HCPCS: 36415; 71045; 80053; 80061; 82947; 83690; 83880; 84484; 85025; 85610; 85730; 90471; 90686; 93005; 96374; 96376; 99285; G0378; J1815; J2270; G0379

== ENCOUNTER → 2020-04-08 | Outpatient (CLI) | payer MEDICARE, OTHER ==
[2020-03-16 17:21] VITALS: BP 120/70
[~2020-04-08] MED LIST changes: +FERR325T14 PO; +MELA5TAB PO; +OXYC10SY PO; +PANT40TA6 PO; +REGADENOSON 0.4 MG/5 ML DISP.SYRIN. IV ONE; +SPIR100T4 PO
--- NOTE | 2020-04-08 11:29 | RAD ---
MR#: [id number] Date of Study: 04/08/2020 Ordering Physician: RAGHAV GARCIA, Referring Physician: BERE QUINONES Tech: RT Dustin (R) (N) APPROVED REPORT Test Type: Pharmacological Stress Nurse/Tech: Otto/Lizette Test Indications: Chest pain Cardiac History: No known cardiac Medications: See EHR Resting Heart Rate: 58 bpm Resting Blood Pressure: 131/53mmHg Pretest Chest Pain: No chest pain Stress Symptoms Dyspnea, chest pressure, headache POST EXERCISE Reason for Termination: Reached target heart rate Max HR: 89 bpm Max Blood Pressure: 127/48mmHg Blood Pressure response to exercise: Normal blood pressure response during stress. Heart Rate response to exercise: Normal Chest Pain: No. Arrhythmia: No. ST Change: No. INTERPRETATION Stress EKG Conclusion: No evidence of stress induced EKG changes. Imaging Protocol IMAGE PROTOCOL: Rest Tc-99m/stress Tc-99m 1 day Rest: Stress: Viability: Radiopharm.Tc99m IszykyccvOm21g Sestamibi Lcpm12xOp 33mCi Duration 15min. 15min. Img Date 04/08/2020 04/08/2020 Inj-Img Sycj68jvx. 45min. Rest Admin Site:IV - Left AntecubitalAdministrator: RT Dustin (R)(N) Stress Admin Site: IV - Left AntecubitalAdministrator: RT Dustin (R)(N) STRESS DATA End Diast. Vol.120.0mlAv. Heart Rate59.0bpm End Syst. Vol.35.0mlCO Index BSA0.0L/min Myocardial Unjn169.0gEject. Jgvvreym98.0% Stress Rates Pk. Fill Rate2.34EDV/secLVtime Pk. Fill 211.29msec Pk. Empty Rate3.39ESV/secLVtime Pk. Hiwpp094.64msec 06/21 Pk. Fill1.31EDV/sec Stress Scores Regional WT0.00Summed WT3.00 Regional WM0.00Summed WM0.00 The rest and stress images show normal perfusion, normal contraction and thickening. LV Perf. Quant 17 Seg. SSS0.00 17 Seg. SRS0.00 17 Seg. SDS0.00 Stress Defect Extent (% LAD)0.00Rest Defect Extent (% LAD)0.00Rev. Defect Extent (% LAD)0.00 Stress Defect Extent (% LCX) 11.30Rest Defect Extent (% LCX)0.00Rev. Defect Extent (% LCX)10.00 Stress Defect Extent (% RCA)0.00Rest Defect Extent (% RCA)0.00Rev. Defect Extent (% RCA)0.00 Stress Defect Extent (% JEANNINE)2.00Rest Defect Extent (% JEANNINE)0.00Rev. Defect Extent (% JEANNINE)1.70 Other Information Quality:Good Risk Assessment: Low Risk Conclusion 1. No evidence of EKG changes with stress testing. 2. Normal perfusion at stress/rest. 3. Low risk study. 4. EF > 60%. Signed by : Raghav Garcia, Electronically Approved : 04/08/2020 11:28:51
== END ==
LOC: NM 07:51
PROVIDERS: ATTEND Internal Medicine Cardiovascular Disease
DX: R07.9 Chest pain, unspecified (principal)
CPT/HCPCS: 78452; 93017; A9500; J2785

== ENCOUNTER 2020-11-26 20:44 | Emergency (ER) | payer MEDICARE, OTHER ==
[~2020-11-26] VITALS: Ht 175.3 cm; Wt 98.6 kg
[~2020-11-26 20:44] MED LIST changes: -LISI40TA PO; +LISI40TA6 PO; -REGADENOSON 0.4 MG/5 ML DISP.SYRIN. IV ONE
--- NOTE | 2020-11-26 20:57 | PHYS DOC ---
Past History Past Medical History: Arthritis, Diabetes, Fibromyalgia, Hypertension, Liver Disease Past Surgical History: Tonsillectomy Alcohol Use: Rarely Drug Use: None General Adult EDM: Chief Complaint: MECHANICAL FALL HPI: HPI: 55-year-old male presents via EMS from a care facility after fall. Patient was listening to 2 nurses give him directions and he was not sure what to do. While he was moving his feet he slipped and fell backwards and hit the top of his head on a cart. Patient tells me he was not knocked out. He does not have any significant pain at this time. Denies nausea or vomiting. The facility reports that the patient went to after the fall this morning but no head CT was done. EMS was called today because they had to sternal rub the patient to wake him up and they were very concerned about that. The patient has no current complaints. The patient was reported to be insulin-dependent diabetic and has liver failure. He did have paracentesis today. Review of Systems: Review of Systems: Constitutional: Denies fever or chills Eyes: Denies change in visual acuity HENT: Denies nasal congestion or sore throat Respiratory: Denies cough or shortness of breath Cardiovascular: Denies chest pain or edema GI: Denies abdominal pain, nausea, vomiting, bloody stools or diarrhea : Denies dysuria Musculoskeletal: Denies back pain or joint pain Integument: Denies rash Neurologic: Denies headache, focal weakness or sensory changes Endocrine: Denies polyuria or polydipsia Lymphatic: Denies swollen glands Psychiatric: Denies depression or anxiety Current Medications: Current Meds: Current Medications Medications (Trade) Dose Ordered Sig/Carlos Eduardo Start Time Stop Time Status Last Admin Dose Admin Sodium Chloride 1,000 ml @ 1,000 mls/hr 1X ONCE 11/26/20 21:00 11/26/20 21:59 UNV Allergies: Allergies: Allergies Coded Allergies Type Severity Reaction Last Updated Verified Iodine and Iodide Containing Produc Allergy Intermediate rash 12/31/19 Yes povidone-iodine Allergy Intermediate rash 12/31/19 Yes soap Allergy Intermediate rash 12/31/19 Yes Physical Exam: PE: Constitutional: Well developed, well nourished, no acute distress, non-toxic appearance. [] HENT: Normocephalic, abrasion superior scalp, bilateral external ears normal, oropharynx moist, no oral exudates, nose normal. [] Eyes: PERRLA, EOMI, conjunctiva normal, no discharge. [] Neck: Normal range of motion, no tenderness, supple, no stridor. [] Cardiovascular: Heart rate regular rhythm, no murmur [] Lungs & Thorax: Bilateral breath sounds clear to auscultation [] Abdomen: Bowel sounds normal, soft, no tenderness, no masses, no pulsatile masses. [] Skin: Warm, dry, no erythema, no rash. [] Back: No tenderness, no CVA tenderness. [] Extremities: No tenderness, no cyanosis, no clubbing, ROM intact, no edema. [] Neurologic: Alert and oriented X 3, normal motor function, normal sensory function, no focal deficits noted. [] Psychologic: Affect normal, judgement normal, mood normal. [] Current Patient Data: Labs: Laboratory Tests Test 11/26/20 20:48 Glucose (Fingerstick) 338 mg/dL (70-99) H EKG: EKG: [] Radiology/Procedures: Radiology/Procedures: [] Impressions: Exam: CT head and cervical spine INDICATION: Fall TECHNIQUE: Sequential axial images through the head and cervical spine were obtained without the administration of IV contrast. Exposure: One or more of the following in the visualized dose reduction techniques were utilized for this examination: 1. Automated exposure control 2. Adjustment of the MA and/or KV according to patient size 3. Use of iterative of reconstructive technique Comparisons: None FINDINGS: Head: No focal parenchymal lesion or hemorrhage is identified. There is no midline shift or sulcal effacement. No acute vascular territory infarction is identified. López-white distinction is preserved. The ventricular system is within normal limits without compression hydrocephalus. The basal cisterns are well maintained. The visualized portions of the paranasal sinuses and mastoid air cells are well- pneumatized. No acute fractures. Cervical spine: Vertebral body heights and alignment are well-maintained. Fracture to the cervical spine is not identified. Mild multilevel spondylotic change in cervical spine with degenerative disc disease greatest at C4-C5 and C5-C6. There is a partially visualized right pleural effusion. IMPRESSION: 1. No acute intracranial abnormality. 2. Negative CT C-spine for acute traumatic injury. 3. Partially visualized right pleural effusion. Electronically signed by: Rodolfo Wilde MD (11/26/2020 9:31 PM) [facility] Heart Score: C/O Chest Pain: N/A Risk Factors: Risk Factors: DM, Current or recent (<one month) smoker, HTN, HLP, family history of CAD, obesity. Risk Scores: Score 0 - 3: 2.5% MACE over next 6 weeks - Discharge Home Score 4 - 6: 20.3% MACE over next 6 weeks - Admit for Clinical Observation Score 7 - 10: 72.7% MACE over next 6 weeks - Early Invasive Strategies Course & Med Decision Making: Course & Med Decision Making Pertinent Labs and Imaging studies reviewed. (See chart for details) The patient's CT of the head and cervical spine is negative for acute findings. There was a partially visualized pleural effusion. I have ordered a chest x-ray for clarification. The patient's labs are significant for an elevated blood sugar over 300. We have given a liter normal saline. The patient's labs are negative for an anion gap. Acetone is negative. Creatinine is 1.6 which is above his previous baseline in the chart of 1.2. Fluid should also help with this. His ammonia is high with a value of 66. He appears to be mentating well at this time. I would grade this as a grade 1 hepatic encephalopathy. This should be able to be managed as his care facility without significant risk. He is stable for discharge back to his care facility. Khai Disclaimer: Khai Disclaimer: This electronic medical record was generated, in whole or in part, using a voice recognition dictation system. Departure Departure: Impression: Primary Impression: Fall from slip, trip, or stumble Qualified Codes: W01.0XXA - Fall on same level from slipping, tripping and stumbling without subsequent striking against object, initial encounter Additional Impressions: Encephalopathy due to ammonia Elevated serum creatinine Disposition: 04 INTERMEDIATE CARE FACILITY Condition: STABLE Referrals: JACQUES HAYS (PCP) Patient Instructions: Hepatic Encephalopathy JULIUS MANSFIELD DO Nov 26, 2020 20:57
[2020-11-26] MEDS ORDERED: IV NORMAL SALINE 1,000ML 1,000 ML IV ONE (21:00)
[2020-11-26 21:09] VITALS: BP 147/73
--- NOTE | 2020-11-26 21:34 | RAD ---
Exam: CT head and cervical spine INDICATION: Fall TECHNIQUE: Sequential axial images through the head and cervical spine were obtained without the admi nistration of IV contrast. Exposure: One or more of the following in the visualized dose reduction techniques were utilized for this examination: 1. Automated exposure control 2. Adjustment of the MA and/or KV according to patient size 3. Use of iterative of reconstructive technique Comparisons: None FINDINGS: Head: No focal parenchymal lesion or hemorrhage is identified. There is no midline shift or sulcal effaceme nt. No acute vascular territory infarction is identified. López-white distinction is preserved. The ventricular system is within normal limits without compression hydrocephalus. The basal cisterns are well maintained. The visualized portions of the paranasal sinuses and mastoid air cells are well-pneumatized. No acute fractures. Cervical spine: Vertebral body heights and alignment are well-maintained. Fracture to the cervical spine is not identified. Mild multilevel spondylotic change in cervical spine with degenerative disc disease greatest at C4-C5 and C5-C6. There is a partially visualized right pleural effusion. IMPRESSION: 1. No acute intracranial abnormality. 2. Negative CT C-spine for acute traumatic injury. 3. Partially visualized right pleural effusion. Electronically signed by: Rodolfo Wilde MD (11/26/2020 9:31 PM) [facility]
[2020-11-26 22:07] LABS: BASO % 0 % (0-3); EOS # 0.1 x10^3/uL (0.0-0.7); EOS % 3 % (0-3); HEMATOCRIT 39.6 % (39.0-53.0); HEMOGLOBIN 13.2 g/dL (13.0-17.5); LYMPH # 0.5 x10^3/uL (1.0-4.8); LYMPH % 17 % (24-48); MEAN CORPUSCULAR HEMOGLOBIN 32 pg (25-35); MEAN CORPUSCULAR HGB CONC 33 g/dL (31-37); MEAN CORPUSCULAR VOLUME 96 fL (79-100); MONO # 0.2 x10^3/uL (0.0-1.1); MONO % 8 % (0-9); NEUT # 2.2 x10^3uL (1.8-7.7); NEUT % 72 % (31-73); PLATELET COUNT 45 x10^3/uL (140-400); RED CELL DISTRIBUTION WIDTH 14.9 % (11.5-14.5)
[2020-11-26 22:11] LABS: CALCIUM 8.8 mg/dL (8.5-10.1); CREATININE 1.6 mg/dL (0.7-1.3); GFR 44.8; POTASSIUM 4.6 mmol/L (3.5-5.1)
[2020-11-26 22:15] LABS: BILIRUBIN,URINE NEG (NEG); CLARITY,URINE CLEAR; COLOR,URINE YELLOW; GLUCOSE,URINE 500 mg/dL (NEG); NITRITE,URINE NEG (NEG)
[2020-11-26 22:17] LABS: ALBUMIN 2.5 g/dL (3.4-5.0); ALBUMIN/GLOBULIN RATIO 0.6 (1.0-1.7); TOTAL BILIRUBIN 0.7 mg/dL (0.2-1.0); TOTAL PROTEIN 6.5 g/dL (6.4-8.2)
[2020-11-26 22:17] LABS: BACTERIA,URINE 0 /HPF (0-FEW); RBC,URINE OCC /HPF (0-2); WBC,URINE 0 /HPF (0-4)
[2020-11-26 22:18] LABS: SQUAMOUS EPITHELIAL CELL,UR OCC /LPF
[2020-11-26 22:25] LABS: BARBITURATES NEG (NEG); BENZODIAZEPINES NEG (NEG); CANNABINOIDS NEG (NEG); COCAINE NEG (NEG); METHADONE NEG (NEG); OPIATES POS (NEG); PHENCYCLIDINE NEG (NEG)
[2020-11-26 22:25] LABS: % LYMPHS 24 % (24-48); % MONOS 6 % (0-10); % SEGS 70 % (35-66)
[2020-11-26 22:26] LABS: PLT ESTIMATE DECREASED (ADEQUATE)
[2020-11-26 22:32] LABS: AMPHETAMINE/METHAMPHETAMINE NEG (NEG)
--- NOTE | 2020-11-26 22:55 | RAD ---
EXAM: AP View of the chest DATE: 11/26/2020 10:15 PM INDICATION: Reason: pleural effusion / Spl. Instructions: / History: COMPARISON: 03/15/2020 07/21/2018 FINDINGS: The heart is not enlarged. Aortic calcifications are seen. Patchy opacities left lung base and medial right lower lobe likely atelectasis or developing consolid ation. No pleural effusion or pneumothorax. IMPRESSION: 1. Bibasilar opacities may represent atelectasis or developing consolidation. Electronically signed by: Nathanael Heart MD (11/26/2020 10:53 PM) [facility]
== END 2020-11-26 23:21 ==
LOC: ER 20:44
DX: S00.01XA Abrasion of scalp, initial encounter (principal); G93.40 Encephalopathy, unspecified; R94.4 Abnormal results of kidney function studies; I10 Essential (primary) hypertension; Z79.899 Other long term (current) drug therapy; Z88.6 Allergy status to analgesic agent; W01.0XXA Fall on same level from slipping, tripping and stumbling without subsequent striking against object, initial encounter; Y93.89 Activity, other specified; Y92.89 Other specified places as the place of occurrence of the external cause; Y99.8 Other external cause status
CPT/HCPCS: 36415; 70450; 71045; 72125; 80053; 80307; 81001; 82010; 82140; 82947; 85007; 85025; 96360; 99285; J7030

== ENCOUNTER 2021-10-30 13:39 | Emergency (ER) | payer MEDICARE, OTHER ==
[~2021-10-30] VITALS: Ht 175.3 cm; Wt 100.0 kg
[~2021-10-30 13:39] MED LIST changes: -DULO60CA6 PO; +DULO60CA7 PO; +FEXO-213 PO; -FEXO180T16 PO
--- NOTE | 2021-10-30 13:40 | PHYS DOC ---
Past History Past Medical History: Cancer, GERD, Liver Disease Past Surgical History: Tonsillectomy Alcohol Use: None Drug Use: None General Adult HPI: HPI: Patient is a 56-year-old male brought in by EMS from his half-way facility for multiple complaints. He reports that he fell at his facility shortly prior to arrival. Sounds like he fell onto his right side. He is complaining of right-sided head pain, neck pain, back pain. He has had greater than 3-week history of chronic, constant right-sided chest pain and right upper back pain. This pain is worse with movement and changes in position. This has been present since another fall. He is supposed to use a cane or a walker with ambulation, he was not using an ambulatory device when he fell today. It sounds like this was a ground-level fall. He does not think he hit his head, denies loss of consciousness. He denies premonitory symptoms. No acute changes in his chest pain today. He denies dyspnea. He denies pleuritic pain. He denies cough or hemoptysis. He denies fevers or chills. He denies urinary symptoms. Denies abdominal pain, nausea, vomiting. He reports that he has chronic weakness, chronic ambulatory difficulty, no acute or focal motor weakness reported today. Review of Systems: Review of Systems: Constitutional: Denies fever or chills Eyes: Denies change in visual acuity HENT: Denies nasal congestion or sore throat Respiratory: Denies cough or shortness of breath Cardiovascular: Right-sided chest pain for over 3 weeks. GI: Denies abdominal pain, nausea, vomiting, or diarrhea. Denies stool incontinence. : Denies Tony symptoms or urinary incontinent Musculoskeletal: Neck pain and back pain. Integument: Denies rash or large lacerations. He does have healing abrasions in the left lower flank from previous fall. Neurologic: Reports mild headache. Denies focal weakness. He has chronic, generalized nonfocal weakness. Denies acute sensory changes. Denies dizziness, vertigo or loss of consciousness. Psychiatric: Chronic and unchanged anxiety. Allergies: Allergies: Allergies Coded Allergies Type Severity Reaction Last Updated Verified Iodine and Iodide Containing Produc Allergy Intermediate rash 12/31/19 Yes povidone-iodine Allergy Intermediate rash 12/31/19 Yes soap Allergy Intermediate rash 12/31/19 Yes Physical Exam: PE: Constitutional: Well developed, well nourished, he is chronically ill-appearing, appears older than stated age, somewhat disheveled. He is nontoxic in appearance, not acutely ill-appearing. HENT: Normocephalic, atraumatic, bilateral external ears normal, oropharynx moist, no oral exudates, nose normal. TMs are clear bilaterally. No otorrhea. No hemotympanum. No dental trauma. No facial or oral trauma or edema. Nares are patent and clear without rhinorrhea or epistaxis Eyes: PERRL, EOMI, conjunctiva normal, no discharge. No nystagmus. Neck: Normal range of motion, no tenderness, supple, no stridor. Midline tenderness or step-offs. No deformity. Trachea is midline. Cardiovascular:Heart rate regular rhythm, +2 radial +2 posterior tibial pulses bilaterally Lungs & Thorax: Equal chest rise, no evidence of acute chest or thorax trauma. Palpation of the right side of the chest reproduces tenderness and pain. No crepitus or subcutaneous emphysema. No step-offs. No contusions. Lungs are clear to auscultation bilaterally without rales, rhonchi or wheezes. Minimally decreased breath sounds bilateral bases, secondary to splinting. Abdomen: Abdomen is obese, soft, nondistended, mild right upper quadrant epigastric tenderness to palpation. No guarding, no rebound tenderness. Negative Fleming's. No lower abdominal tenderness. No palpable. Mass. No CVA tenderness. No flank abdominal ecchymosis noted Skin: Warm, dry, no erythema, no rash. No laceration. No ecchymosis noted. He does have healing bruises of the left lower flank from previous fall weeks ago. No purulence. No induration. No fluctuance. Back: Slightly limited range of motion secondary to pain. No midline tenderness or step-offs. No acute deformity. He does have healing abrasions on his left lower flank secondary to a fall from a few weeks ago. No warmth erythema. No purulence. Extremities: No tenderness, no cyanosis, no clubbing, ROM intact, no edema. Pelvis is stable. No calf tenderness. No limb deformity. Neurologic: Alert and oriented X 3, normal motor function, normal sensory function, no focal deficits noted. [] Psychologic: Affect is anxious, somewhat bizarre, overall cooperative. EKG: EKG: EKG is interpreted at 1348 Rhythm is sinus Rate is 81 bpm [place] is left low voltage marked artifact No obvious STEMI or acute ischemia Radiology/Procedures: Radiology/Procedures: IMAGING REPORT Signed PATIENT: VIKASH HUNTER ACCOUNT: [id number] : 1965 LOCATION: ER AGE: 56 SEX: M EXAM STATUS: REG ER ORD. PHYSICIAN: SHREE GREGORIO DO REASON: fall, right sided chest pain PROCEDURE: PORTABLE CHEST 1V EXAM: Chest, single view. HISTORY: Fall. Pain. COMPARISON: 11/26/2020 FINDINGS: A frontal view of the chest is obtained. There are suspected chronic interstitial changes with superimposed bilateral lower lobe atelectasis. The heart is normal in size. There is a trace right pleural effusion. IMPRESSION: Bilateral lower lobe atelectasis and possible trace right pleural effusion. Electronically signed by: Michelle Garrido MD (10/30/2021 3:43 PM) [id number] DICTATED AND SIGNED BY: MICHELLE GARRIDO MD DATE: 10/30/211541 CC: SHREE GREGORIO DO; ALAN FROST DO ~ IMAGING REPORT Signed PATIENT: VIKASH HUNTER ACCOUNT: [id number] : 1965 LOCATION: ER AGE: 56 SEX: M EXAM STATUS: REG ER ORD. PHYSICIAN: SHREE GREGORIO DO REASON: fall PROCEDURE: CT LUMBAR SPINE WO CONTRAST EXAM: Thoracic and lumbar spine CT without contrast. HISTORY: Trauma. Fall. Pain. TECHNIQUE: Computed tomographic images of the thoracic and lumbar spine were obtained without contrast. Multiplanar reformatting was performed. *One or more of the following individualized dose reduction techniques were utilized for this examination: 1. Automated exposure control. 2. Adjustment of the mA and/or kV according to patient size. 3. Use of iterative reconstruction technique. COMPARISON: None. FINDINGS: Thoracic spine: There is a mild superior endplate compression fractures with Schmorl's node at T3 and T5. There is no residual portion of the cortex at these levels. There is multilevel endplate remodeling. There is bone demineralization. There is multilevel facet arthropathy. There is prominent dorsal epidural fat. There are few shallow disc protrusions. There is a shallow posterior central disc protrusion with peripheral calcification or ossification at T3-L1, without significant stenosis. There is a small right pleural effusion. There is no pneumothorax. There are 3 mm nodules within the right lung apex. There is bilateral lower lobe and posterior dependent atelectasis. There is hepatic cirrhosis. There is an ill-defined hypodense lesion with irregular peripheral hyperdensity due to possible prior embolization within the right hepatic lobe, not formally assessed on this exam. There is a small amount of perihepatic ascites. There is massive splenomegaly. There is renal atrophy. Lumbar spine: There is 2 mm grade 1 anterolisthesis of L4 on L5. There is mild multilevel endplate remodeling. There is a partially bridging anterior os teophyte at L2-L3. There is a bone island within L2. There is no suspicious osseous lesion. There is no acute or subacute fracture. There is a small right pleural effusion. There is left adrenal gland thickening without a discrete nodule on the [id number]. There is aortic and bilateral iliac artery atherosclerosis. There is subchondral sclerosis and vacuum phenomenon involving the sacroiliac joints. There is a bone island or small bone infarct within the left iliac bone. At L1-L2, there is no stenosis. At L2-L3, there is a disc bulge and endplate remodeling. There is no stenosis. At L3-L4, there are broad-based right greater than left foraminal to extra foraminal disc protrusions and osteophyte complexes superimposed on a disc bulge and endplate remodeling. There is mild bilateral facet arthropathy. There is mild bilateral foraminal stenosis. There is mild central canal stenosis. At L4-L5, there are shallow broad-based bilateral foraminal to extra foraminal disc protrusions and osteophyte complexes superimposed on a disc bulge and endplate remodeling. There is moderate right and mild left facet arthropathy. There is grade 1 anterolisthesis. There is mild right foraminal stenosis. There is mild central canal stenosis. At L5-S1, there is a left extraforaminal disc protrusion and osteophyte complex. There is mild bilateral facet arthropathy. There is minimal left foraminal stenosis. IMPRESSION: 1. Mild superior endplate compression fractures at T3 and T5. The absence of a convincing fracture line favors a chronic etiology. Correlate for pain in these locations to exclude acute fractures. 2. Multilevel degenerative change throughout the spine, described in detail above. This results in stenosis at the aforementioned levels. 3. Bone demineralization. 4. Hepatic cirrhosis and superimposed ill-defined hypodense lesion with scattered areas of internal hyperdensity possibly due to prior embolization within the right hepatic lobe. Correlate with prior liver imaging. This is not formally assessed on this exam. 5. Portal hypertension with associated massive splenomegaly. 6. Small right pleural effusion and bilateral lower lobe airspace disease. 7. Tiny right apical pulmonary nodules. These are likely benign based on size. Electronically signed by: Michelle Garrido MD (10/30/2021 3:54 PM) [id number] DICTATED AND SIGNED BY: MICHELLE GARRIDO MD DATE: 10/30/211542 CC: SHREE GREGORIO DO; ALAN FROST DO ~ IMAGING REPORT Signed PATIENT: VIKASH HUNTER ACCOUNT: [id number] : 1965 LOCATION: ER AGE: 56 SEX: M EXAM STATUS: REG ER ORD. PHYSICIAN: SHREE GREGORIO DO REASON: fall PROCEDURE: CT HEAD AND CERVICAL SPINE WO CT Head W/O Contrast: History: Reason: fall / Spl. Instructions: / History: Comparison: none Axial images were obtained without contrast. There is moderate diffuse atrophy. There is no mass effect, extraaxial fluid collections or hydrocephalus. There is no focal loss of briscoe-white matter distinction to suggest acute ischemia, i.e. stroke. Impression: Moderate atrophy is advanced for the patient's age. No acute findings. End of impression CT C-Spine without contrast: Clinical History: Reason: fall / Spl. Instructions: / History: Technique: Axial helical images of the cervical spine were obtained without contrast, axial coronal and sagittal reconstruction was performed. Findings: There is no loss of vertebral body stature. There is no prevertebral soft tissue swelling. The vertebral bodies are well aligned. The C1-C2 relationship is normal. The visualized osseous structures appear normal. Impression: No acute findings. Clinical correlation suggested. End of impression PQRS Compliance Statement: One or more of the following individualized dose reduction techniques were utilized for this examination: 1. Automated exposure control 2. Adjustment of the mA and/or kV according to patient size 3. Use of iterative reconstruction technique Electronically signed by: Lesly Graham III, MD (10/30/2021 4:07 PM) [facility] DICTATED AND SIGNED BY: LESLY GRAHAM III, MD DATE: 10/30/21 1539 CC: JGSHREE M ; LEEPRASHANTLONG RIZOI ~ Heart Score: C/O Chest Pain: Yes HEART Score for Chest Pain: HEART Score for Chest Pain Response (Comments) Value History Slighlty/Non-Suspicious 0 ECG Nonspecific Repolarizatio 1 Age >45 - < 65 1 Risk Factors 1 or 2 Risk Factors 1 Troponin < Normal Limit 0 Total 3 Risk Factors: Risk Factors: DM, Current or recent (<one month) smoker, HTN, HLP, family history of CAD, obesity. Risk Scores: Score 0 - 3: 2.5% MACE over next 6 weeks - Discharge Home Score 4 - 6: 20.3% MACE over next 6 weeks - Admit for Clinical Observation Score 7 - 10: 72.7% MACE over next 6 weeks - Early Invasive Strategies Course & Med Decision Making: Course & Med Decision Making Pertinent Labs and Imaging studies reviewed. (See chart for details) The patient is given a dose of IV fentanyl. He was feeling much better, resting comfortably. I have discussed all of the findings, differential diagnosis plan of care with him. He appears to have chronic compression fractures of T3 and T5. He does have a small right-sided pleural effusion, no pneumothorax, no rib fracture. Troponin is negative. No acute ischemia on EKG. Neuroimaging is unremarkable for any acute life-threatening process or intracranial hemorrhage. I have discussed all the findings, differential diagnosis and plan of care with the patient. He will be discharged back to his care facility. I told him to make sure he ask for help when getting up, he should use his walker with attempted ambulation. Strict return precautions given. He reports that he has pain medication that he does not routinely like to take, but he may take this as needed and as directed. He should follow-up with his PCP. Khai Disclaimer: Khai Disclaimer: This electronic medical record was generated, in whole or in part, using a voice recognition dictation system. Departure Departure: Impression: Primary Impression: Fall at long-term Qualified Codes: W19.XXXA - Unspecified fall, initial encounter; Y92.129 - Unspecified place in long-term as the place of occurrence of the external cause Additional Impressions: Thoracic compression fracture Qualified Codes: S22.000A - Wedge compression fracture of unspecified thoracic vertebra, initial encounter for closed fracture Right-sided chest pain Pleural effusion on right Atelectasis Disposition: 01 HOME / SELF CARE / HOMELESS Condition: STABLE Referrals: ALAN FROST DO (PCP) Patient Instructions: Atelectasis, Back, Compression Fracture, Fall Prevention and Home Safety, Fall Prevention in Hospitals, Pleural Effusion SHREE GREGORIO DO October 30, 2021 13:40
[2021-10-30 14:39] LABS: BASO % 1 % (0-3); EOS # 0.1 x10^3/uL (0.0-0.7); EOS % 3 % (0-3); HEMATOCRIT 36.7 % (39.0-53.0); HEMOGLOBIN 12.4 g/dL (13.0-17.5); LYMPH # 0.4 x10^3/uL (1.0-4.8); LYMPH % 13 % (24-48); MEAN CORPUSCULAR HEMOGLOBIN 34 pg (25-35); MEAN CORPUSCULAR HGB CONC 34 g/dL (31-37); MEAN CORPUSCULAR VOLUME 99 fL (79-100); MONO # 0.4 x10^3/uL (0.0-1.1); MONO % 10 % (0-9); NEUT # 2.6 x10^3uL (1.8-7.7); NEUT % 74 % (31-73); RED CELL DISTRIBUTION WIDTH 14.1 % (11.5-14.5); WHITE BLOOD COUNT 3.5 x10^3/uL (4.0-11.0)
[2021-10-30 14:42] LABS: PLATELET COUNT 49 x10^3/uL (140-400)
[2021-10-30 14:53] LABS: CALCIUM 9.1 mg/dL (8.5-10.1); GFR 34.5; POTASSIUM 4.6 mmol/L (3.5-5.1)
[2021-10-30 15:03] LABS: CLARITY,URINE CLEAR; COLOR,URINE YELLOW; GLUCOSE,URINE NEG (NEG)
[2021-10-30 15:04] LABS: BACTERIA,URINE 0 /HPF (0-FEW); NITRITE,URINE NEG (NEG); RBC,URINE 0 /HPF (0-2); SQUAMOUS EPITHELIAL CELL,UR FEW /LPF; WBC,URINE 0 /HPF (0-4)
[2021-10-30 15:05] LABS: ALBUMIN/GLOBULIN RATIO 0.8 (1.0-1.7); MAGNESIUM 2.2 mg/dL (1.8-2.4); PHOSPHORUS 2.8 mg/dL (2.6-4.7); TOTAL BILIRUBIN 0.9 mg/dL (0.2-1.0)
--- NOTE | 2021-10-30 15:46 | RAD ---
EXAM: Chest, single view. HISTORY: Fall. Pain. COMPARISON: 11/26/2020 FINDINGS: A frontal view of the chest is obtained. There are suspected chronic interstitial changes w ith superimposed bilateral lower lobe atelectasis. The heart is normal in size. There is a trace righ t pleural effusion. IMPRESSION: Bilateral lower lobe atelectasis and possible trace right pleural effusion. Electronically signed by: Michelle Quintero MD (10/30/2021 3:43 PM) [id number]
--- NOTE | 2021-10-30 15:56 | RAD ---
EXAM: Thoracic and lumbar spine CT without contrast. HISTORY: Trauma. Fall. Pain. TECHNIQUE: Computed tomographic images of the thoracic and lumbar spine were obtained without contras t. Multiplanar reformatting was performed. *One or more of the following individualized dose reduction techniques were utilized for this examina tion: 1. Automated exposure control. 2. Adjustment of the mA and/or kV according to patient size. 3. Use of iterative reconstruction technique. COMPARISON: None. FINDINGS: Thoracic spine: There is a mild superior endplate compression fractures with Schmorl's node at T3 and T5. There is no residual portion of the cortex at these levels. There is multilevel endplate remodel ing. There is bone demineralization. There is multilevel facet arthropathy. There is prominent dorsal epidural fat. There are few shallow disc protrusions. There is a shallow posterior central disc prot rusion with peripheral calcification or ossification at T3-L1, without significant stenosis. There is a small right pleural effusion. There is no pneumothorax. There are 3 mm nodules within the right lung apex. There is bilateral lower lobe and posterior dependent atelectasis. There is hepatic cirrhosis. There is an ill-defined hypodense lesion with irregular peripheral hyperd ensity due to possible prior embolization within the right hepatic lobe, not formally assessed on thi s exam. There is a small amount of perihepatic ascites. There is massive splenomegaly. There is renal atrophy. Lumbar spine: There is 2 mm grade 1 anterolisthesis of L4 on L5. There is mild multilevel endplate re modeling. There is a partially bridging anterior osteophyte at L2-L3. There is a bone island within L 2. There is no suspicious osseous lesion. There is no acute or subacute fracture. There is a small ri ght pleural effusion. There is left adrenal gland thickening without a discrete nodule on the field-o f-view. There is aortic and bilateral iliac artery atherosclerosis. There is subchondral sclerosis an d vacuum phenomenon involving the sacroiliac joints. There is a bone island or small bone infarct wit hin the left iliac bone. At L1-L2, there is no stenosis. At L2-L3, there is a disc bulge and endplate remodeling. There is no stenosis. At L3-L4, there are broad-based right greater than left foraminal to extra foraminal disc protrusions and osteophyte complexes superimposed on a disc bulge and endplate remodeling. There is mild bilater al facet arthropathy. There is mild bilateral foraminal stenosis. There is mild central canal stenosi s. At L4-L5, there are shallow broad-based bilateral foraminal to extra foraminal disc protrusions and o steophyte complexes superimposed on a disc bulge and endplate remodeling. There is moderate right and mild left facet arthropathy. There is grade 1 anterolisthesis. There is mild right foraminal stenosi s. There is mild central canal stenosis. At L5-S1, there is a left extraforaminal disc protrusion and osteophyte complex. There is mild bilate ral facet arthropathy. There is minimal left foraminal stenosis. IMPRESSION: 1. Mild superior endplate compression fractures at T3 and T5. The absence of a convincing fracture li ne favors a chronic etiology. Correlate for pain in these locations to exclude acute fractures. 2. Multilevel degenerative change throughout the spine, described in detail above. This results in st enosis at the aforementioned levels. 3. Bone demineralization. 4. Hepatic cirrhosis and superimposed ill-defined hypodense lesion with scattered areas of internal h yperdensity possibly due to prior embolization within the right hepatic lobe. Correlate with prior li arturo imaging. This is not formally assessed on this exam. 5. Portal hypertension with associated massive splenomegaly. 6. Small right pleural effusion and bilateral lower lobe airspace disease. 7. Tiny right apical pulmonary nodules. These are likely benign based on size. Electronically signed by: Michelle Quintero MD (10/30/2021 3:54 PM) [id number]
--- NOTE | 2021-10-30 16:09 | RAD ---
CT Head W/O Contrast: History: Reason: fall / Spl. Instructions: / History: Comparison: none Axial images were obtained without contrast. There is moderate diffuse atrophy. There is no mass effect, extraaxial fluid collections or hydrocep halus. There is no focal loss of briscoe-white matter distinction to suggest acute ischemia, i.e. stroke. Impression: Moderate atrophy is advanced for the patient's age. No acute findings. End of impression CT C-Spine without contrast: Clinical History: Reason: fall / Spl. Instructions: / History: Technique: Axial helical images of the cervical spine were obtained without contrast, axial coronal and sagittal reconstruction was performed. Findings: There is no loss of vertebral body stature. There is no prevertebral soft tissue swelling. The vert ebral bodies are well aligned. The C1-C2 relationship is normal. The visualized osseous structures a ppear normal. Impression: No acute findings. Clinical correlation suggested. End of impression PQRS Compliance Statement: One or more of the following individualized dose reduction techniques were utilized for this examinat ion: 1. Automated exposure control 2. Adjustment of the mA and/or kV according to patient size 3. Use of iterative reconstruction technique Electronically signed by: Jeffrey Cardenas III, MD (10/30/2021 4:07 PM) [facility]
[2021-10-30 16:30] VITALS: BP 123/87
== END 2021-10-30 17:52 | disposition home or self-care (01) ==
LOC: ER 13:39
DX: S22.000A Wedge compression fracture of unspecified thoracic vertebra, initial encounter for closed fracture (principal); S30.811A Abrasion of abdominal wall, initial encounter; R07.89 Other chest pain; R51.9 Headache, unspecified; J90 Pleural effusion, not elsewhere classified; J98.11 Atelectasis; K21.9 Gastro-esophageal reflux disease without esophagitis; Z91.041 Radiographic dye allergy status; Z88.8 Allergy status to other drugs, medicaments and biological substances; W18.39XA Other fall on same level, initial encounter; Y93.89 Activity, other specified; Y92.89 Other specified places as the place of occurrence of the external cause; Y99.8 Other external cause status
CPT/HCPCS: 36415; 70450; 71045; 72125; 72128; 72131; 80053; 81001; 82550; 83690; 83735; 83880; 84100; 84484; 85025; 96374; 99285; J3010